=== PATIENT | female | born 1950 | race Caucasian/White ===

== ENCOUNTER 2025-08-03 10:52 | Outpatient (REF) | payer OTHER, SELFPAY ==
--- NOTE | ~2025-08-03 | XR_ITS ---
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 TECHNIQUE: AP and lateral views FINDINGS: Radiopaque material within the vertebral bodies T10 and T11. Old compression deformity at T9 resulting in 50% volume loss. There is a kyphotic deformity apex at T10-11. Metallic plate in the anterior lower cervical spine. Status post posterior thoracolumbar fusion no fully included in the [id number]. Osteopenia versus osteoporosis. Mild multilevel spondylosis. No acute cortical disruption or gross malalignment. XR/XR thoracic spine 2V IMPRESSION: No acute fracture or listhesis. Status post kyphoplasty/vertebroplasty procedure, likely at T10 and T11. Electronically signed by: Johnny Sánchez MD 08/03/2025 11:47 AM [facility]
--- OUTSIDE RECORDS SUMMARY | 2025-08-03 14:02 | XMS_ITS | Encounter Summary ---
Author Organization [facility] Address [address] [place] [address] Care Team Providers Care Marine Electrician Name Role Phone Archana Weinstein MD Unavailable [phone] Michelle Marshall MD Primary Care Provider Unav ailable Encounter Details Date Type Department Care Team Description 07/05/2018 [facility] Medical Records [address] [place] [address] Social History Tobacco Use Types Packs/Day Years Used Date Smoking Tobacco: Former Cigarettes 0.3 3 Smokeless Tobacco: Never Comments:quit 40yrs ago Alcohol Use Standard Drinks/Week Comments No 0 (1 standard drink = 0.6 oz pur e alcohol) Sex Assigned at Date Recorded Female 11/24/2019 9:[address] Job Start Date Occupation Industry Not on file Not on file Not on file documented as of this encounter Plan of Treatment Not on file documented as of this encounter Visit Diagnoses Not on filedocumented in this encounter Care Teams Marine Electrician Relationship Specialty Start Date End Date Michelle Marshall MD PCP - General Family Practice 02/18/23 Archana Weinstein MD Specialist Cardiology 06/03/21 documented as of this encounter
--- OUTSIDE RECORDS SUMMARY | 2025-08-03 14:02 | XMS_ITS | Encounter Summary ---
Author Organization [facility] Address [address] [place] [address] Care Team Providers Care Ammunition Supervisor Name Role Phone Archana Weinstein MD Unavailable [phone] Michelle Marshall MD Primary Care Provider Unav ailable Encounter Details Date Type Department Care Team Description 10/03/2018 Refill Adult Medicine [address] [phone] Christine Cruz MD [address] [place] [id number] Social History Tobacco Use Types Packs/Day Years [...] on file documented as of this encounter Miscellaneous Notes * Telephone Encounter - Rayna Segovia M.A. - 10/03/2018 9:03 AM EST Controlled substance contract and last issue date of medication reviewed. Patient is due for medication. Lab Results Component Value Date URINEOXYCOD NEGATIVE 09/29/2017 URBENZO NEGATIVE 09/29/2017 URAMPHETAMIN NEGATIVE 09/29/2017 URMARIJUANA NEGATIVE 09/29/2017 UROPIATES NEGATIVE 09/29/2017 URBARBITUATE NEGATIVE 09/29/2017 URCOCAINE NEGATIVE 09/29/2017 HYDROCODONE Negative 12/14/2016 Appt 10.20.2018 * Telephone Encounter - Rayna Segovia M.A. - 10/03/2018 9:03 AM ESTFrom: Yohana Oates To: Christine Cruz MD Sent: 10/03/2018 8:46 AM EST Subject: Medication Renewal Request Original authorizing provider: MD Yohaan Dawson would like a refill of the following medications: tramadol (ULTRAM) 50 MG tablet [Christine Cruz MD] Preferred pharmacy: [facility] [id number] [place] [address] Comment: documented in this encounter Plan of Treatment Not on file documented as of this encounter Visit Diagnoses Diagnosis Osteoarthritis of cervical spine, unspecified spinal osteoarthritis complication status documented in this encounter Care Teams Ammunition Supervisor Relationship Specialty Start Date End Date Michelle Marshall MD PCP - General Family Practice 02/18/23 Archana Weinstein MD Specialist Cardiology 06/03/21 documented as of this encounter
--- OUTSIDE RECORDS SUMMARY | 2025-08-03 14:02 | XMS_ITS | Encounter Summary ---
Author Organization [facility] Address [address] [place] [address] Care Team Providers Care Professor Of Management Name Role Phone Archana Weinstein MD Unavailable [phone] Michelle Marshall MD Primary Care Provider Unav ailable Encounter Details Date Type Department Care Team Description 07/20/2018 Residential Sales Associate Report Medical Records [address] [place] [address] [place] Social History Tobacco Use Types Packs/Day Years [...] on filedocumented in this encounter Care Teams Professor Of Management Relationship Specialty Start Date End Date Michelle Marshall MD PCP - General Family Practice 02/18/23 Archana Weinstein MD Specialist Cardiology 06/03/21 documented as of this encounter
--- OUTSIDE RECORDS SUMMARY | 2025-08-03 14:02 | XMS_ITS | Encounter Summary ---
Author Organization [facility] Address [address] [place] [address] Care Team Providers Care Traffic Signal Technician Name Role Phone Nickolas Avelar MD Primary Care Provider Unavail able Archana Weinstein MD Unavailable [phone] Michelle Marshall MD Primary Care Provider Unav ailable Encounter Details Date Type Department Care Team Description 01/29/2015 Premix Operator Concentrate Report Medical Records [address] [place] [address] Estuardo Rider MD Social History Tobacco Use Types Packs/Day Years Used Date Smoking Tobacco: Never Smokeless Tobacco: Never Comments:quit 40yrs ago Alcohol [...] on filedocumented in this encounter Care Teams Traffic Signal Technician Relationship Specialty Start Date End Date Nickolas Avelar MD PCP - General Internal Medicine 08/01/14 05/29/15 Michelle Marshall MD PCP - General Family Practice 02/18/23 Archana Weinstein MD Specialist Cardiology 06/03/21 documented as of this encounter
--- OUTSIDE RECORDS SUMMARY | 2025-08-03 14:02 | XMS_ITS | Encounter Summary ---
Author Organization [facility] Address [address] [place] [address] Care Team Providers Care Build Automation Engineer Name Role Phone Archana Weinstein MD Unavailable [phone] Michelle Marshall MD Primary Care Provider Unav ailable Reason for Visit * Reason Onset Date Comments Faxed Order 08/17/2018 Encounter Details Date Type Department Care Team Description 08/17/2018 Telephone Adult Medicine [address] [phone] Christine Cruz MD [address] [place] [address] [phone] Faxed Order Social History Tobacco Use Types Packs/Day Years [...] encounter Miscellaneous Notes * Telephone Encounter - Holli Ramirez - 08/17/2018 11:42 AM EST Discharge from agency for Dr Christine Cruz's signature documented in this encounter Plan of Treatment Not on file documented as of this encounter Visit Diagnoses Not on filedocumented in this encounter Care Teams Build Automation Engineer Relationship Specialty Start Date End Date Michelle Marshall MD PCP - General Family Practice 02/18/23 Archana Weinstein MD Specialist Cardiology 06/03/21 documented as of this encounter
--- OUTSIDE RECORDS SUMMARY | 2025-08-03 14:02 | XMS_ITS | Encounter Summary ---
Author Organization [facility] Address [address] [place] [address] Care Team Providers Care Supervisor Sandblaster Name Role Phone Archana Weinstein MD Unavailable [phone] Michelle Marshall MD Primary Care Provider Unav ailable Reason for Visit * Reason Onset Date Comments Faxed Order 07/15/2018 Encounter Details Date Type Department Care Team Description 07/15/2018 Telephone Adult Medicine [address] [phone] Christine Cruz MD [address] [place] [address] [phone] Faxed Order Social History Tobacco Use Types [...] * Telephone Encounter - Holli Ramirez - 07/15/2018 10:02 AM EDT Plan of care for Dr Christine Cruz's signature documented in this encounter Plan of Treatment Not on file documented as of this encounter Visit Diagnoses Not on filedocumented in this encounter Care Teams Supervisor Sandblaster Relationship Specialty Start Date End Date Michelle Marshall MD PCP - General Family Practice 02/18/23 Archana Weinstein MD Specialist Cardiology 06/03/21 documented as of this encounter
--- OUTSIDE RECORDS SUMMARY | 2025-08-03 14:02 | XMS_ITS | Encounter Summary ---
Author Organization [facility] Address [address] [place] [address] Care Team Providers Care Machine Tailer Name Role Phone Nickolas Avelar MD Primary Care Provider Unavail able Archana Weinstein MD Unavailable Michelle Marshall MD Primary Care Provider Unav ailable Encounter Details Date Type Department Care Team Description 02/06/2015 Hereditary Cancer Qu iz Results Medical Records [address] [place] [address] Abstract, Provider Social History Tobacco Use Types Packs/Day Years [...] on filedocumented in this encounter Care Teams Machine Tailer Relationship Specialty Start Date End Date Nickolas Avelar MD PCP - General Internal Medicine 08/01/14 05/29/15 Michelle Marshall MD PCP - General Family Practice 02/18/23 Archana Weinstein MD Specialist Cardiology 06/03/21 documented as of this encounter
--- OUTSIDE RECORDS SUMMARY | 2025-08-03 14:02 | XMS_ITS | Encounter Summary ---
Author Organization [facility] Address [address] [place] [address] Care Team Providers Care Application Defense Manager Name Role Phone Archana Weinstein MD Unavailable [phone] Michelle Marshall MD Primary Care Provider Unav ailable Encounter Details Date Type Department Care Team Description 07/25/2018 Home Health Certification Medical Records [address] [place] [address] [facility] [address] [place] [address] Social History Tobacco Use Types Packs/Day Years [...] on filedocumented in this encounter Care Teams Application Defense Manager Relationship Specialty Start Date End Date Michelle Marshall MD PCP - General Family Practice 02/18/23 Archana Weinstein MD Specialist Cardiology 06/03/21 documented as of this encounter
--- OUTSIDE RECORDS SUMMARY | 2025-08-03 14:02 | XMS_ITS | Encounter Summary ---
Author Organization [facility] Address [address] [place] [address] Care Team Providers Care Pet Care Assistant Name Role Phone Archana Weinstein MD Unavailable [phone] Michelle Marshall MD Primary Care Provider Unav ailable Encounter Details Date Type Department Care Team Description 12/13/2018 Meat And Seafood Manager Report Medical Records [address] [place] [address] Vargas Bowens Social History Tobacco Use Types [...] on filedocumented in this encounter Care Teams Pet Care Assistant Relationship Specialty Start Date End Date Michelle Marshall MD PCP - General Family Practice 02/18/23 Archana Weinstein MD Specialist Cardiology 06/03/21 documented as of this encounter
--- OUTSIDE RECORDS SUMMARY | 2025-08-03 14:02 | XMS_ITS | Encounter Summary ---
Author Organization [facility] Address [address] [place] [address] Care Team Providers Care Signal System Testing Maintainer Name Role Phone Archana Weinstein MD Unavailable [phone] Michelle Marshall MD Primary Care Provider Unav ailable Encounter Details Date Type Department Care Team Description 10/04/2018 [facility] Medical Records [address] [place] [address] Abstract, Provider Social History Tobacco Use Types [...] on filedocumented in this encounter Care Teams Signal System Testing Maintainer Relationship Specialty Start Date End Date Michelle Marshall MD PCP - General Family Practice 02/18/23 Archana Weinstein MD Specialist Cardiology 06/03/21 documented as of this encounter
--- OUTSIDE RECORDS SUMMARY | 2025-08-03 14:02 | XMS_ITS | Encounter Summary ---
Author Organization [facility] Address [address] [place] [address] Care Team Providers Care Acute Care Assistant Name Role Phone Archana Weinstein MD Unavailable [phone] Michelle Marshall MD Primary Care Provider Unav ailable Encounter Details Date Type Department Care Team Description 06/10/2018 Hospital Medical Records [address] [place] [address] [id number] Social History Tobacco Use Types Packs/Day Years [...] on filedocumented in this encounter Care Teams Acute Care Assistant Relationship Specialty Start Date End Date Michelle Marshall MD PCP - General Family Practice 02/18/23 Arcahna Weinstein MD Specialist Cardiology 06/03/21 documented as of this encounter
--- OUTSIDE RECORDS SUMMARY | 2025-08-03 14:02 | XMS_ITS | Encounter Summary ---
Author Organization [facility] Address [address] [place] [address] Care Team Providers Care Soldering Machine Operator Helper Name Role Phone Archana Weinstein MD Unavailable [phone] Michelle Marshall MD Primary Care Provider Unav ailable Reason for Referral * Radiology Services (Routine) - Closed Specialty Diagnoses / Procedures Referred By Tab mcdonald Referred To Contact Radiology Diagnoses Pulmonary nodule Procedures [facility] DIAGNOSTIC COMPUTED TOMOGRAPHY THORAX W/O CNTRST Erin Booker PA [address] [place] [address] [address] Referral ID Status Reason Start Date Expiration Date Visits Re quested Visits Authorized [id number] Closed 10/11/2021 12/01/2021 1 1 Encounter Details Date Type Department Care Team Description 10/11/2020 Orders Only Adult Medicine [address] [address] Erin Booker PA Pulmonary nodule (Primary Dx) Social History Tobacco Use Types [...] file Not on file Not on file COVID-19 Exposure Response Date Recorded In the last month, have you been in contact with someone who was confirmed or suspected to have Coronavirus / COVID-19? No / Unsure 10/11/2020 9:20 AM EST documented as of this encounter Plan of Treatment Not on file documented as of this encounter Results * [facility] DIAGNOSTIC COMPUTED TOMOGRAPHY THORAX W/O CNTRST (10/13/2021 9:06 AM EST) 10/13/2021 10:3 3 AM EST Impressions [facility] - 10/13/2021 10:42 AM EST IMPRESSION: 1. Small pulmonary nodule stable from 08/01/2019. Narrative [facility] - 10/13/2021 10:[address] CHEST HISTORY: One year follow-up pulmonary nodules. TECHNIQUE: Chest CT was performed utilizing contiguous noncontrasted axial images from the thoracic inlet to below the diaphragm. The images were reformatted in the coronal and sagittal planes. Radiation dosage is 6.38mGy COMPARISON: CT chest from 10/11/[address] chest from 08/01/2019 FINDINGS: Base of neck: The thyroid and base of the neck are within normal limits. Mediastinum: The heart is normal in size, no pericardial effusion. No mediastinal lymphadenopathy. Mild atherosclerosis of the thoracic aorta. Lungs: Evaluation of the lung parenchyma demonstrates stable nodules as follows: 5 mm solid left lower lobe nodule (series 3, image 65), 3 mm solid subpleural nodule within the left lower lobe (image 59/100) 2 mm solid left lower lobe nodule within the left lower lobe (series 3, image 57) 3 mm solid right lower lobe nodule (series 3, image 52). 2 3 mm small nodules within the peripheral right lower lobe (image 56 and 60/100) Apical pleural-parenchymal scarring. Linear atelectasis at the lung bases. Upper Abdomen: Limited visualization of the extreme upper abdomen demonstrates a small hiatal hernia. Subcentimeter lymph nodes are present within the upper abdomen. MSK: Soft tissues are normal. Extensive degenerative changes of the thoracic spine with evidence of posterior spinal fusion along the lower thoracic spine and evidence of vertebroplasty. Procedure Note Stephanie Taylor MD - 10/13/2021 CT CHEST HISTORY: One year follow-up pulmonary nodules. TECHNIQUE: Chest CT was performed utilizing contiguous noncontrasted axialimages from the thoracic inlet to below the diaphragm. The images were reformatted in thecoronal and sagittal planes. Radiation dosage is 6.38mGy COMPARISON: CT chest from 10/11/[address] chest from 08/01/2019 FINDINGS: Base of neck: The thyroid and base of the neck are within normal limits. Mediastinum: The heart is normal in size, no pericardial effusion. Nomediastinal lymphadenopathy. Mild atherosclerosis of the thoracic aorta. Lungs: Evaluation of the lung parenchyma demonstrates stable nodules asfollows: 5 mm solid left lower lobe nodule (series 3, image 65), 3 mm solid subpleural nodule within the left lower lobe (image 59/100) 2 mm solid left lower lobe nodule within the left lower lobe (series 3,image 57) 3 mm solid right lower lobe nodule (series 3, image 52). 2 3 mm small nodules within the peripheral right lower lobe (image 56 and60/100) Apical pleural-parenchymal scarring. Linear atelectasis at the lungbases. Upper Abdomen: Limited visualization of the extreme upper abdomendemonstrates a small hiatal hernia. Subcentimeter lymph nodes are present within the upper abdomen. MSK: Soft tissues are normal. Extensive degenerative changes of thethoracic spine with evidence of posterior spinal fusion along the lower thoracic spine andevidence of vertebroplasty. IMPRESSION IMPRESSION: 1. Small pulmonary nodule stable from 08/01/2019. Erin LEVY CT SCANS [facility] documented in this encounter Visit Diagnoses Diagnosis Pulmonary nodule- Primary Solitary pulmonary nodule Pulmonary nodule Solitary pulmonary nodule documented in this encounter Care Teams Soldering Machine Operator Helper Relationship Specialty Start Date End Date Michelle Marshall MD PCP - General Family Practice 02/18/23 Archana Weinstein MD Specialist Cardiology 06/03/21 documented as of this encounter
--- OUTSIDE RECORDS SUMMARY | 2025-08-03 14:02 | XMS_ITS | Encounter Summary ---
Author Organization [facility] Address [address] [place] [address] Care Team Providers Care Marketing Communications Leader Name Role Phone Archana Weinstein MD Unavailable [phone] Michelle Marshall MD Primary Care Provider Unav ailable Encounter Details Date Type Department Care Team Description 10/29/2020 Industrial Editor Report Medical Records [address] [place] [address] Saira Marshall DPM Social History Tobacco Use Types Packs/Day Years [...] have Coronavirus / COVID-19? No / Unsure 10/16/2020 10:59 AM EST documented as of this encounter Plan of Treatment Not on file documented as of this encounter Visit Diagnoses Not on filedocumented in this encounter Care Teams Marketing Communications Leader Relationship Specialty Start Date End Date Michelle Marshall MD PCP - General Family Practice 02/18/23 Archana Weinstein MD Specialist Cardiology 06/03/21 documented as of this encounter
--- OUTSIDE RECORDS SUMMARY | 2025-08-03 14:02 | XMS_ITS | Encounter Summary ---
Author Organization [facility] Address [address] [place] [address] Care Team Providers Care Middle School Band Teacher Name Role Phone Archana Weinstein MD Unavailable [phone] Michelle Marshall MD Primary Care Provider Unav ailable Reason for Visit * Reason Onset Date Comments Radius Corner Machine Operator Feedback 07/08/2018 [facility] Encounter Details Date Type Department Care Team Description 07/08/2018 Telephone Adult Medicine [address] [phone] Raúl Cruz MD [address] [place] [address] [phone] Radius Corner Machine Operator Feedback ([facility]) Social History Tobacco Use Types Packs/Day Years [...] encounter Miscellaneous Notes * Telephone Encounter - Nini Doherty - 07/08/2018 2:29 PM EDT [facility] Trace #: [id number] Subscriber: YOHANA OATES Submitter : RAÚL CRUZ Submitter Type: Provider : 1950 Referral (#[id number]) Specialty Care Review Type: Initial Certification Status : Certified in total Service Type : Medical Care Place Of Service : Office Visits : 6 Service Date : 07/08/2018-07/08/2019 Service Providers Provider Name ID Provider Type ARIS BOWENS NPI : [id number] Service Provider * Telephone Encounter - Saira Coyne - 07/08/2018 2:15 PM EDT What insurance does the patient have today? [place] Family Effective 06/27/09: BCBS will not retro referral requests over 90 days. If request is for this please instruct patient to call the 800# on their insurance card to appeal. Do not submit a request. Referrals cannot be processed if the insurance is not accurate. If the insurance listed above in red is NO BILLING INFORMATION FOUND FOR THIS ENCOUTNER The patients correct insurance must be obtained and registered in [facility] or their referral can not be processed. Is this a retro request? NO. If yes for what date of service do you need the retro referral? N/A Who is calling to request this referral? Patient If the caller is not the patient, what is their name? N/A Ask the patient WHO referred them to this specialty: Patient saw Dr. Cruz at [facility] for the problem and was told if symptoms did not resolve or worsen they would refer them to this specialty FIRST and LAST NAME of SPECIALIST PATIENT is seeing: Dr. Bowens What specialty is this? Orthopedics DIAGNOSIS Patient is being seen for (Not a body part or a procedure): Patient had surgery due to infection in the back Have you seen this SPECIALIST for this PROBLEM/DX before?YES If YES, when:01/2018 Have you checked REVIEW or the APPT DESK to see if this referral has already been done or has visits left? YES Is this visit:Follow Up Address of Specialist:[place] [address] Phone # of Specialist:[phone] Fax #: (if applicable):N/A Does patient have an appointment scheduled?: YES Date of appointment- (including a retro-request): 07/20/18 (6 visits) Is this appointment related to: Not MVA, WC or Surgery related documented in this encounter Plan of Treatment Not on file documented as of this encounter Visit Diagnoses Not on filedocumented in this encounter Care Teams Middle School Band Teacher Relationship Specialty Start Date End Date Michelle Marshall MD PCP - General Family Practice 02/18/23 Archana Weinstein MD Specialist Cardiology 06/03/21 documented as of this encounter
--- OUTSIDE RECORDS SUMMARY | 2025-08-03 14:02 | XMS_ITS | Encounter Summary ---
Author Organization [facility] Address [address] [place] [address] Care Team Providers Care Airborne Operations Manager Name Role Phone Archana Weinstein MD Unavailable [phone] Michelle Marshall MD Primary Care Provider Unav ailable Reason for Visit * Reason Onset Date Comments injection 03/21/2020 Encounter Details Date Type Department Care Team Description 03/21/2020 Telephone Physiatry - [address] [address] Jyotsna Vasquez MD [address] [place] [address] [place] [address] injection Social History Tobacco Use Types Packs/Day Years [...] encounter Miscellaneous Notes * Telephone Encounter - Carolynn Pickett L.P.N. - 03/21/2020 3:25 PM EDT Called pt to schedule her left SI joint injection She says she does not need the injection at this time She will call back when she needs the injection Message to Dr Tripp for FYI documented in this encounter Plan of Treatment Not on file documented as of this encounter Visit Diagnoses Not on filedocumented in this encounter Care Teams Airborne Operations Manager Relationship Specialty Start Date End Date Michelle Marshall MD PCP - General Family Practice 02/18/23 Archana Weinstein MD Specialist Cardiology 06/03/21 documented as of this encounter
--- OUTSIDE RECORDS SUMMARY | 2025-08-03 14:03 | XMS_ITS | Encounter Summary ---
Author Organization [facility] Address [address] [place] [address] Care Team Providers Care Lithograph Designer Name Role Phone Maico Churchill MD Primary Care Provider Paris vailable Nickolas Avelar MD Primary Care Provider Unavail able Archana Weinstein MD Unavailable [phone] Michelle Marshall MD Primary Care Provider Unav ailable Encounter Details Date Type Department Care Team Description 06/06/2014 Medical Service Technician Report Medical Records [address] [place] [address] Phillip Loera MD Social History Tobacco Use Types Packs/Day [...] on filedocumented in this encounter Care Teams Lithograph Designer Relationship Specialty Start Date End Date Maico Churchill MD PCP - General 02/08/09 07/31/14 Nickolas Avelar MD PCP - General Internal Medicine 08/01/14 05/29/15 Michelle Marshall MD PCP - General Family Practice 02/18/23 Archana Weinstein MD Specialist Cardiology 06/03/21 documented as of this encounter
--- OUTSIDE RECORDS SUMMARY | 2025-08-03 14:03 | XMS_ITS | Encounter Summary ---
Author Organization [facility] Address [address] [place] [address] Care Team Providers Care Collar Fuser Name Role Phone Maico Churchill MD Primary Care Provider Paris vailable Nickolas Avelar MD Primary Care Provider Unavail able Archana Weinstein MD Unavailable [phone] Michelle Marshall MD Primary Care Provider Unav ailable Encounter Details Date Type Department Care Team Description 05/26/2011 Scarf And Anneal Operator Report Medical Records [address] [place] [address] Estuardo Rider MD Social History Tobacco Use Types Packs/Day Years Used Date Smoking Tobacco: Never Comments:quit 40yrs ago Alcohol Use [...] on filedocumented in this encounter Care Teams Collar Fuser Relationship Specialty Start Date End Date Maico Churchill MD PCP - General 02/08/09 07/31/14 Nickolas Avelar MD PCP - General Internal Medicine 08/01/14 05/29/15 Michelle Marshall MD PCP - General Family Practice 02/18/23 Archana Weinstein MD Specialist Cardiology 06/03/21 documented as of this encounter
--- OUTSIDE RECORDS SUMMARY | 2025-08-03 14:03 | XMS_ITS | Encounter Summary ---
Author Organization [facility] Address [address] [place] [address] Care Team Providers Care Logging Tractor Operator Name Role Phone Nickolas Avelar MD Primary Care Provider Unavail able Archana Weinstein MD Unavailable [phone] Michelle Marshall MD Primary Care Provider Unav ailable Encounter Details Date Type Department Care Team Description 10/02/2014 Ict Account Manager Report Medical Records [address] [place] [address] Estuardo Rider MD Social History Tobacco Use [...] on filedocumented in this encounter Care Teams Logging Tractor Operator Relationship Specialty Start Date End Date Nickolas Avelar MD PCP - General Internal Medicine 08/01/14 05/29/15 Michelle Marshall MD PCP - General Family Practice 02/18/23 Archana Weinstein MD Specialist Cardiology 06/03/21 documented as of this encounter
--- OUTSIDE RECORDS SUMMARY | 2025-08-03 14:03 | XMS_ITS | Encounter Summary ---
Author Organization [facility] Address [address] [place] [address] Care Team Providers Care Toolmaker Name Role Phone Archana Weinstein MD Unavailable [phone] Michelle Marshall MD Primary Care Provider Unav ailable Encounter Details Date Type Department Care Team Description 08/01/2015 Release of Information Medical Records [address] [place] [address] Abstract, Provider Social History Tobacco Use Types [...] on filedocumented in this encounter Care Teams Toolmaker Relationship Specialty Start Date End Date Michelle Marshall MD PCP - General Family Practice 02/18/23 Archana Weinstein MD Specialist Cardiology 06/03/21 documented as of this encounter
--- OUTSIDE RECORDS SUMMARY | 2025-08-03 14:03 | XMS_ITS | Encounter Summary ---
Author Organization [facility] Address [address] [place] [address] Care Team Providers Care Branch Manager Trainee Name Role Phone Nickolas Avelar MD Primary Care Provider Unavail able Archana Weinstein MD Unavailable [phone] Michelle Marshall MD Primary Care Provider Unav ailable Encounter Details Date Type Department Care Team Description 08/28/2014 Boilerhouse Mechanic Report Medical Records [address] [place] [address] Estuardo Rider MD Social History Tobacco Use [...] on filedocumented in this encounter Care Teams Branch Manager Trainee Relationship Specialty Start Date End Date Nickolas Avelar MD PCP - General Internal Medicine 08/01/14 05/29/15 Michelle Marshall MD PCP - General Family Practice 02/18/23 Archana Weinstein MD Specialist Cardiology 06/03/21 documented as of this encounter
--- OUTSIDE RECORDS SUMMARY | 2025-08-03 14:03 | XMS_ITS | Encounter Summary ---
Author Organization [facility] Address [address] [place] [address] Care Team Providers Care Insurance Sales Associate Name Role Phone Archana Weinstein MD Unavailable [phone] Michelle Marshall MD Primary Care Provider Unav ailable Encounter Details Date Type Department Care Team Description 09/10/2015 [facility] Medical Records [address] [place] [address] Sarthak Eli MD Social History Tobacco Use Types Packs/Day [...] on filedocumented in this encounter Care Teams Insurance Sales Associate Relationship Specialty Start Date End Date Michelle Marshall MD PCP - General Family Practice 02/18/23 Archana Weinstein MD Specialist Cardiology 06/03/21 documented as of this encounter
--- OUTSIDE RECORDS SUMMARY | 2025-08-03 14:03 | XMS_ITS | Encounter Summary ---
Author Organization [facility] Address [address] [place] [address] Care Team Providers Care Substation Wireman Name Role Phone Archana Weintsein MD Unavailable [phone] Michelle Marshall MD Primary Care Provider Unav ailable Reason for Visit * Reason Onset Date Comments radiology 07/09/2015 mri testing. Encounter Details Date Type Department Care Team Description 07/09/2015 Telephone Adult Medicine [address] [id number] Christine Cruz MD [address] [place] [address] [id number] radiology (mri testing.) Social History Tobacco Use Types Packs/Day Years [...] encounter Miscellaneous Notes * Telephone Encounter - Christine Cruz MD - 07/09/2015 12:34 PM EDT Order placed * Telephone Encounter - Susana Banks R.N. - 07/09/2015 12:18 PM EDT message forwarded to Dr Cruz * Telephone Encounter - Maira Madrigal - 07/09/2015 10:57 AM EDT Yohana Marcos mri lumbar spine will be done with contrast due to back surgery 2008, can you pleaseorder a BUN and Creatinine for her? Thanks. Maira, Mri Department. documented in this encounter Plan of Treatment Not on file documented as of this encounter Visit Diagnoses Diagnosis Rheumatoid arthritis (HCC)- Primary documented in this encounter Care Teams Substation Wireman Relationship Specialty Start Date End Date Michelle Marshall MD PCP - General Family Practice 02/18/23 Archana Weinstein MD Specialist Cardiology 06/03/21 documented as of this encounter
--- OUTSIDE RECORDS SUMMARY | 2025-08-03 14:03 | XMS_ITS | Encounter Summary ---
Author Organization [facility] Address [address] [place] [address] Care Team Providers Care Cataloging Assistant Name Role Phone Nickolas Avelar MD Primary Care Provider Unavail able Archana Weinstein MD Unavailable [phone] Michelle Marshall MD Primary Care Provider Unav ailable Encounter Details Date Type Department Care Team Description 11/29/2014 Carpenter Supervisor Report Medical Records [address] [place] [address] Estuardo Rider MD Social History Tobacco Use [...] on filedocumented in this encounter Care Teams Cataloging Assistant Relationship Specialty Start Date End Date Nickolas Avelar MD PCP - General Internal Medicine 08/01/14 05/29/15 Michelle Marshall MD PCP - General Family Practice 02/18/23 Archana Weinstein MD Specialist Cardiology 06/03/21 documented as of this encounter
--- OUTSIDE RECORDS SUMMARY | 2025-08-03 14:03 | XMS_ITS | Encounter Summary ---
Author Organization [facility] Address [address] [place] [address] Care Team Providers Care Rag Washer Name Role Phone Archana Weinstein MD Unavailable [phone] Michelle Marshall MD Primary Care Provider Unav ailable Encounter Details Date Type Department Care Team Description 05/26/2021 Hospital Medical Records [address] [place] [address] [id number] Social History Tobacco Use Types Packs/Day Years [...] have Coronavirus / COVID-19? No / Unsure 05/08/2021 10:21 AM EDT documented as of this encounter Plan of Treatment Not on file documented as of this encounter Visit Diagnoses Not on filedocumented in this encounter Care Teams Rag Washer Relationship Specialty Start Date End Date Michelle Marshall MD PCP - General Family Practice 02/18/23 Archana Weinstein MD Specialist Cardiology 9/7/21 documented as of this encounter
--- OUTSIDE RECORDS SUMMARY | 2025-08-03 14:03 | XMS_ITS | Encounter Summary ---
Author Organization [facility] Address [address] [place] [address] Care Team Providers Care Project Estimator Name Role Phone Nickolas Avelar MD Primary Care Provider Unavail able Archana Weinstein MD Unavailable [phone] Michelle Marshall MD Primary Care Provider Unav ailable Encounter Details Date Type Department Care Team Description 03/07/2015 Raw Material Planner Report Medical Records [address] [place] [address] [place] [address] [place] [address] [phone] Social History Tobacco Use Types Packs/Day Years [...] on filedocumented in this encounter Care Teams Project Estimator Relationship Specialty Start Date End Date Nickolas Avelar MD PCP - General Internal Medicine 08/01/14 05/29/15 Michelle Marshall MD PCP - General Family Practice 02/18/23 Archana Weinstein MD Specialist Cardiology 06/03/21 documented as of this encounter
--- OUTSIDE RECORDS SUMMARY | 2025-08-03 14:03 | XMS_ITS | Encounter Summary ---
Author Organization [facility] Address [address] [place] [address] Care Team Providers Care Teletype Telegrapher Name Role Phone Archana Weinstein MD Unavailable [phone] Michelle Marshall MD Primary Care Provider Unav ailable Reason for Visit * Reason Onset Date Comments Mychart Rx Refill 02/11/2022 Encounter Details Date Type Department Care Team Description 02/11/2022 Refill Adult Medicine [address] [id number] Erin Booker PA Mychart Rx Refill Social History Tobacco Use Types Packs/Day Years [...] Exposure Response Date Recorded In the last 10 days, have yo u been in contact with someone who was confirmed or suspected to have Coronavirus/COVID-19? No / Unsure 02/11/2022 2:22 PM EDT documented as of this encounter Miscellaneous Notes * Telephone Encounter - Valery Wing M.A. - 02/11/2022 12:01 PM EDT Lab Results Component Value Date TSH 0.80 12/03/2021 Lab Results Component Value Date NA 140 12/03/2021 K 3.9 12/03/2021 CO2 26 12/03/2021 CL 110 12/03/2021 BUN 21 12/03/2021 CREAT 1.02 12/24/2021 GLU 96 12/03/2021 CA 9.3 12/03/2021 GFR 53 12/24/2021 Last appt 12/24/21 documented in this encounter Plan of Treatment Not on file documented as of this encounter Visit Diagnoses Not on filedocumented in this encounter Care Teams Teletype Telegrapher Relationship Specialty Start Date End Date Michelle Marshall MD PCP - General Family Practice 02/18/23 Archana Weinstein MD Specialist Cardiology 06/03/21 documented as of this encounter
--- OUTSIDE RECORDS SUMMARY | 2025-08-03 14:03 | XMS_ITS | Encounter Summary ---
Author Organization [facility] Address [address] [place] [address] Care Team Providers Care Keg Header Name Role Phone Maico Churchill MD Primary Care Provider [place] vailable Nickolas Avelar MD Primary Care Provider Unavail able Archana Weinstein MD Unavailable [phone] Michelle Marshall MD Primary Care Provider Unav ailable Encounter Details Date Type Department Care Team Description 07/23/2011 Hand Mounter Report Medical Records [address] [place] [address] Phillip Loera MD Social History Tobacco Use [...] on filedocumented in this encounter Care Teams Keg Header Relationship Specialty Start Date End Date Maico Churchill MD PCP - General 02/08/09 07/31/14 Nickolas Avelar MD PCP - General Internal Medicine 08/01/14 05/29/15 Michelle Marshall MD PCP - General Family Practice 02/18/23 Archana Weinstein MD Specialist Cardiology 06/03/21 documented as of this encounter
--- OUTSIDE RECORDS SUMMARY | 2025-08-03 14:03 | XMS_ITS | Encounter Summary ---
Author Organization [facility] Address [address] [place] [address] Care Team Providers Care Joiner Name Role Phone Maico Churchill MD Primary Care Provider [place] vailable Nickolas Avelar MD Primary Care Provider Unavail able Archana Weinstein MD Unavailable [phone] Michelle Marshall MD Primary Care Provider Unav ailable Encounter Details Date Type Department Care Team Description 12/16/2011 [facility] [place] [address] Phillip Wynne MD Social History Tobacco Use Types Packs/Day [...] on filedocumented in this encounter Care Teams Joiner Relationship Specialty Start Date End Date Maico Churchill MD PCP - General 02/08/09 07/31/14 Nickolas Avelar MD PCP - General Internal Medicine 08/01/14 05/29/15 Michelle Marshall MD PCP - General Family Practice 02/18/23 Archana Weinstein MD Specialist Cardiology 06/03/21 documented as of this encounter
--- OUTSIDE RECORDS SUMMARY | 2025-08-03 14:03 | XMS_ITS | Encounter Summary ---
Author Organization [facility] Address [address] [place] [address] Care Team Providers Care Medical Lab Assistant Name Role Phone Nickolas Avelar MD Primary Care Provider Unavail able Archana Weinstein MD Unavailable [phone] Michelle Marshall MD Primary Care Provider Unav ailable Encounter Details Date Type Department Care Team Description 10/26/2014 Food Broker Report Medical Records [address] [place] [address] Estuardo Rider MD Social History Tobacco Use [...] on filedocumented in this encounter Care Teams Medical Lab Assistant Relationship Specialty Start Date End Date Nickolas Avelar MD PCP - General Internal Medicine 08/01/14 05/29/15 Michelle Marshall MD PCP - General Family Practice 02/18/23 Archana Weinstein MD Specialist Cardiology 06/03/21 documented as of this encounter
--- OUTSIDE RECORDS SUMMARY | 2025-08-03 14:03 | XMS_ITS | Encounter Summary ---
Author Organization [facility] Address [address] [place] [address] Care Team Providers Care Car And Yard Supervisor Name Role Phone Archana Weinstein MD Unavailable [phone] Michelle Marshall MD Primary Care Provider Unav ailable Encounter Details Date Type Department Care Team Description 08/01/2015 Thermograph Operator Report Medical Records [address] [place] [address] Phillip Loera MD Social History Tobacco Use [...] on filedocumented in this encounter Care Teams Car And Yard Supervisor Relationship Specialty Start Date End Date Michelle Marshall MD PCP - General Family Practice 02/18/23 Archana Weinstein MD Specialist Cardiology 06/03/21 documented as of this encounter
--- OUTSIDE RECORDS SUMMARY | 2025-08-03 14:03 | XMS_ITS | Encounter Summary ---
Author Organization [facility] Address [address] [place] [address] Care Team Providers Care Credit Analyst Name Role Phone Maico Churchill MD Primary Care Provider [place] vailable Nickolas Avelar MD Primary Care Provider Unavail able Archana Weinstein MD Unavailable [phone] Michelle Marshall MD Primary Care Provider Unav ailable Encounter Details Date Type Department Care Team Description 08/05/2011 Excellence Consultant Report Medical Records [address] [place] [address] Phillip Loera MD Social History Tobacco Use [...] on filedocumented in this encounter Care Teams Credit Analyst Relationship Specialty Start Date End Date Maico Churchill MD PCP - General 02/08/09 07/31/14 Nickolas Avelar MD PCP - General Internal Medicine 08/01/14 05/29/15 Michelle Marshall MD PCP - General Family Practice 02/18/23 Archana Weinstein MD Specialist Cardiology 06/03/21 documented as of this encounter
--- OUTSIDE RECORDS SUMMARY | 2025-08-03 14:03 | XMS_ITS | Encounter Summary ---
Author Organization [facility] Address [address] [place] [address] Care Team Providers Care Guest Experience Specialist Name Role Phone Maico Churchill MD Primary Care Provider [place] vailable Nickolas Avelar MD Primary Care Provider Unavail able Archana Weinstein MD Unavailable [phone] Michelle Marshall MD Primary Care Provider Unav ailable Encounter Details Date Type Department Care Team Description 06/03/2011 Oral Hygienist Report Medical Records [address] [place] [address] Phillip Loera MD Social History Tobacco Use [...] on filedocumented in this encounter Care Teams Guest Experience Specialist Relationship Specialty Start Date End Date Maico Churchill MD PCP - General 02/08/09 07/31/14 Nickolas Avelar MD PCP - General Internal Medicine 08/01/14 05/29/15 Michelle Marshall MD PCP - General Family Practice 02/18/23 Archana Weinstein MD Specialist Cardiology 06/03/21 documented as of this encounter
--- OUTSIDE RECORDS SUMMARY | 2025-08-03 14:03 | XMS_ITS | Encounter Summary ---
Author Organization [facility] Address [address] [place] [address] Care Team Providers Care Senior Product Analyst Name Role Phone Maico Churchill MD Primary Care Provider [place] vailable Nickolas Avelar MD Primary Care Provider Unavail able Archana Weinstein MD Unavailable [phone] Michelle Marshall MD Primary Care Provider Unav ailable Encounter Details Date Type Department Care Team Description 01/23/2011 [employer] Programmer Analyst Report Medical Records [address] [place] [address] Estuardo Rider MD Social History Tobacco Use [...] on filedocumented in this encounter Care Teams Senior Product Analyst Relationship Specialty Start Date End Date Maico Churchill MD PCP - General 02/08/09 07/31/14 Nickolas Avelar MD PCP - General Internal Medicine 08/01/14 05/29/15 Michelle Marshall MD PCP - General Family Practice 02/18/23 Archana Weinstein MD Specialist Cardiology 06/03/21 documented as of this encounter
--- OUTSIDE RECORDS SUMMARY | 2025-08-03 14:03 | XMS_ITS | Encounter Summary ---
Author Organization [facility] Address [address] [place] [address] Care Team Providers Care Infantry Operations Specialist Name Role Phone Archana Weinstein MD Unavailable [phone] Michelle Marshall MD Primary Care Provider Unav ailable Encounter Details Date Type Department Care Team Description 03/18/2021 [facility] Medical Records [address] [place] [address] Abstract, Provider Social History Tobacco Use Types [...] have Coronavirus / COVID-19? No / Unsure 03/14/2021 10:52 AM EDT documented as of this encounter Plan of Treatment Not on file documented as of this encounter Visit Diagnoses Not on filedocumented in this encounter Care Teams Infantry Operations Specialist Relationship Specialty Start Date End Date Michelle Marshall MD PCP - General Family Practice 02/18/23 Archana Weinstein MD Specialist Cardiology 06/03/21 documented as of this encounter
--- OUTSIDE RECORDS SUMMARY | 2025-08-03 14:03 | XMS_ITS | Encounter Summary ---
Author Organization [facility] Address [address] [place] [address] Care Team Providers Care Legal Clerk Name Role Phone Maico Churchill MD Primary Care Provider [place] vailable Nickolas Avelar MD Primary Care Provider Unavail able Archana Weinstein MD Unavailable [phone] Michelle Marshall MD Primary Care Provider Unav ailable Encounter Details Date Type Department Care Team Description 12/08/2011 Controlled Substance Contract with [facility] Medical Records [address] [place] [address] Abstract, Provider Social History Tobacco Use Types [...] on filedocumented in this encounter Care Teams Legal Clerk Relationship Specialty Start Date End Date Maico Churchill MD PCP - General 02/08/09 07/31/14 Nickolas Avelar MD PCP - General Internal Medicine 08/01/14 05/29/15 Michelle Marshall MD PCP - General Family Practice 02/18/23 Archana Weinstein MD Specialist Cardiology 06/03/21 documented as of this encounter
--- OUTSIDE RECORDS SUMMARY | 2025-08-03 14:03 | XMS_ITS | Encounter Summary ---
Author Organization [facility] Address [address] [place] [address] Care Team Providers Care Ldr Rn Name Role Phone Archana Weinstein MD Unavailable [phone] Michelle Marshall MD Primary Care Provider Unav ailable Encounter Details Date Type Department Care Team Description 08/12/2015 Therapist Radiation Report Medical Records [address] [place] [phone] Sarthak Eli MD Social History Tobacco Use [...] on filedocumented in this encounter Care Teams Ldr Rn Relationship Specialty Start Date End Date Michelle Marshall MD PCP - General Family Practice 02/18/23 Archana Weinstein MD Specialist Cardiology 06/03/21 documented as of this encounter
--- OUTSIDE RECORDS SUMMARY | 2025-08-03 14:03 | XMS_ITS | Encounter Summary ---
Author Organization [facility] Address [address] [place] [address] Care Team Providers Care Global Supply Chain Vice President Name Role Phone Archana Weinstein MD Unavailable [phone] Michelle Marshall MD Primary Care Provider Unav ailable Encounter Details Date Type Department Care Team Description 08/28/2015 FENCE MAKER/MassPat Report Medical Records [address] [place] [address] Abstract, Provider Social History Tobacco Use Types [...] on filedocumented in this encounter Care Teams Global Supply Chain Vice President Relationship Specialty Start Date End Date Michelle Marshall MD PCP - General Family Practice 02/18/23 Archana Weinstein MD Specialist Cardiology 06/03/21 documented as of this encounter
--- OUTSIDE RECORDS SUMMARY | 2025-08-03 14:03 | XMS_ITS | Encounter Summary ---
Author Organization [facility] Address [address] [place] [address] Care Team Providers Care Economic Research Analyst Name Role Phone Maico Churchill MD Primary Care Provider [place] vaNickolas Hurtado MD Primary Care Provider Unavail able Archana Weinstein MD Unavailable [phone] Michelle Marshall MD Primary Care Provider Unav ailable Encounter Details Date Type Department Care Team Description 03/14/2012 Director Channel Report Medical Records [address] [place] [address] Chico Frausto Social History Tobacco Use Types Packs/Day Years [...] on filedocumented in this encounter Care Teams Economic Research Analyst Relationship Specialty Start Date End Date Maico Churchill MD PCP - General 02/08/09 07/31/14 Nickolas Avelar MD PCP - General Internal Medicine 08/01/14 05/29/15 Michelle Marshall MD PCP - General Family Practice 02/18/23 Archana Weinstein MD Specialist Cardiology 06/03/21 documented as of this encounter
--- OUTSIDE RECORDS SUMMARY | 2025-08-03 14:03 | XMS_ITS | Encounter Summary ---
Author Organization [facility] Address [address] [place] [address] Care Team Providers Care Pay Station Department Manager Name Role Phone Nickolas Avelar MD Primary Care Provider Unavail able Archana Weinstein MD Unavailable [phone] Michelle Marshall MD Primary Care Provider Unav ailable Encounter Details Date Type Department Care Team Description 03/27/2015 Controlled Substance Plan Medical Records [address] [place] [address] Abstract, Provider Social History Tobacco Use Types [...] on filedocumented in this encounter Care Teams Pay Station Department Manager Relationship Specialty Start Date End Date Nickolas Avelar MD PCP - General Internal Medicine 08/01/14 05/29/15 Michelle Marshall MD PCP - General Family Practice 02/18/23 Archana Weinstein MD Specialist Cardiology 06/03/21 documented as of this encounter
--- OUTSIDE RECORDS SUMMARY | 2025-08-03 14:03 | XMS_ITS | Encounter Summary ---
Author Organization [facility] Address [address] [place] [address] Care Team Providers Care Automation And Controls Manager Name Role Phone Maico Churchill MD Primary Care Provider [place] vailable Nickolas Avelar MD Primary Care Provider Unavail able Archana Weinstein MD Unavailable [phone] Michelle Marshall MD Primary Care Provider Unav ailable Encounter Details Date Type Department Care Team Description 08/09/2012 Pastry Wrapper Report Medical Records [address] [place] [address] Estuardo Rider MD Social History Tobacco Use [...] on filedocumented in this encounter Care Teams Automation And Controls Manager Relationship Specialty Start Date End Date Maico Churchill MD PCP - General 02/08/09 07/31/14 Nickolas Avelar MD PCP - General Internal Medicine 08/01/14 05/29/15 Michelle Marshall MD PCP - General Family Practice 02/18/23 Archana Weinstein MD Specialist Cardiology 06/03/21 documented as of this encounter
--- OUTSIDE RECORDS SUMMARY | 2025-08-03 14:04 | XMS_ITS | Encounter Summary ---
Author Organization [facility] Address [address] [place] [address] Care Team Providers Care Robot Operator Name Role Phone Archana Weinstein MD Unavailable Michelle Marshall MD Primary Care Provider Unav ailable Encounter Details Date Type Department Care Team Description 02/10/2016 Floral Design Teacher Report Medical Records [address] [place] [address] Phillip Loera MD Social History Tobacco Use Types Packs/Day Years Used Date Smoking Tobacco: Former Smokeless Tobacco: Never Comments:quit 40yrs ago Alcohol [...] on filedocumented in this encounter Care Teams Robot Operator Relationship Specialty Start Date End Date Michelle aMrshall MD PCP - General Family Practice 02/18/23 Archana Weinstein MD Specialist Cardiology 06/03/21 documented as of this encounter
--- OUTSIDE RECORDS SUMMARY | 2025-08-03 14:04 | XMS_ITS | Encounter Summary ---
Author Organization [facility] Address [address] [place] [address] Care Team Providers Care Rate Supervisor Name Role Phone Archana Weinstein MD Unavailable [phone] Michelle Marshall MD Primary Care Provider Unav ailable Encounter Details Date Type Department Care Team Description 10/07/2021 Pt. Referral Request [facility] MyChart [address] [place] [address] Md Fawn Social History Tobacco Use Types Packs/Day Years [...] have Coronavirus / COVID-19? No / Unsure 09/22/2021 8:22 AM EST documented as of this encounter Plan of Treatment Not on file documented as of this encounter Visit Diagnoses Not on filedocumented in this encounter Care Teams Rate Supervisor Relationship Specialty Start Date End Date Michelle Marshall MD PCP - General Family Practice 02/18/23 Archana Weinstein MD Specialist Cardiology 06/03/21 documented as of this encounter
--- OUTSIDE RECORDS SUMMARY | 2025-08-03 14:04 | XMS_ITS | Encounter Summary ---
Author Organization [facility] Address [address] [place] [address] Care Team Providers Care Sweet Potato Disintegrator Name Role Phone Archana Weinstein MD Unavailable [phone] Michelle Marshall MD Primary Care Provider Unav ailable Encounter Details Date Type Department Care Team Description 02/19/2023 Refill Pulmonology - [place] [address] [facility] [address] [place] [address] Karley Winslow APRN [address] [facility] [address] [place] [phone] Social History Tobacco Use Types Packs/Day Years [...] suspected to have Coronavirus/COVID-19? No / Unsure 02/18/2023 10:11 AM EDT documented as of this encounter Plan of Treatment Not on file documented as of this encounter Visit Diagnoses Not on filedocumented in this encounter Care Teams Sweet Potato Disintegrator Relationship Specialty Start Date End Date Michelle Marshall MD PCP - General Family Practice 02/18/23 Archana Wenistein MD Specialist Cardiology 06/03/21 documented as of this encounter
--- OUTSIDE RECORDS SUMMARY | 2025-08-03 14:04 | XMS_ITS | Encounter Summary ---
Author Organization [facility] Address [address] [place] [address] Care Team Providers Care Offc Spec Name Role Phone Archana Weinstein MD Unavailable [phone] Michelle Marshall MD Primary Care Provider Unav ailable Encounter Details Date Type Department Care Team Description 10/09/2015 [facility] Medical Records [address] [place] [address] Social History Tobacco Use Types Packs/Day Years [...] on filedocumented in this encounter Care Teams Offc Spec Relationship Specialty Start Date End Date Michelle Marshall MD PCP - General Family Practice 02/18/23 Archana Weinstein MD Specialist Cardiology 06/03/21 documented as of this encounter
--- OUTSIDE RECORDS SUMMARY | 2025-08-03 14:04 | XMS_ITS | Encounter Summary ---
Author Organization [facility] Address [address] [place] [address] Care Team Providers Care Aniline Press Worker Name Role Phone Archana Weinstein MD Unavailable [phone] Michelle Marshall MD Primary Care Provider Unav ailable Reason for Visit * Reason Onset Date Comments APPOINTMENT 12/18/2019 Encounter Details Date Type Department Care Team Description 12/18/2019 Telephone Pulmonology - [place] [address] [facility] [address] [place] [address] Pablo Glez MD [address] [facility] [address] [place] [address] APPOINTMENT Social History Tobacco Use Types Packs/Day Years [...] encounter Miscellaneous Notes * Telephone Encounter - Ayo Oates M.A. - 12/18/2019 2:10 PM EDT Patient would be happy to do an Audio visit tomorrow at 8:45, best number is [phone] documented in this encounter Plan of Treatment Not on file documented as of this encounter Visit Diagnoses Not on filedocumented in this encounter Care Teams Aniline Press Worker Relationship Specialty Start Date End Date Michelle Marshall MD PCP - General Family Practice 02/18/23 Archana Weinstein MD Specialist Cardiology 06/03/21 documented as of this encounter
--- OUTSIDE RECORDS SUMMARY | 2025-08-03 14:04 | XMS_ITS | Encounter Summary ---
Author Organization [facility] Address [address] [place] [address] Care Team Providers Care Web Developer Programmer Name Role Phone Archana Weinstein MD Unavailable Michelle Marshall MD Primary Care Provider Unav ailable Encounter Details Date Type Department Care Team Description 01/10/2020 Pt. Non Urgent Medical Question Physiatry - [address] [address] Jyotsna Vasquez MD [address] [place] [address] [place] [address] Social History Tobacco Use Types Packs/Day Years [...] on file documented as of this encounter Progress Notes * Carolynn Pickett L.P.N. - 01/10/2020 9:57 AM EDTFrom: Yohana Oates To: Jyotsna Vasquez MD Sent: 01/10/2020 9:43 AM EDT Subject: Pain Hi Dr. Have you received the approval from the insurance co for the shot. Thank you Yohana documented in this encounter Plan of Treatment Not on file documented as of this encounter Visit Diagnoses Not on filedocumented in this encounter Care Teams Web Developer Programmer Relationship Specialty Start Date End Date Michelle Marshall MD PCP - General Family Practice 02/18/23 Archana Weinstein MD Specialist Cardiology 06/03/21 documented as of this encounter
--- OUTSIDE RECORDS SUMMARY | 2025-08-03 14:04 | XMS_ITS | Encounter Summary ---
Author Organization [facility] Address [address] [place] [address] Care Team Providers Care Simulation Tech Name Role Phone Archana Weinstein MD Unavailable [phone] Michelle Marshall MD Primary Care Provider Unav ailable Encounter Details Date Type Department Care Team Description 11/23/2016 Orders Only Medical Records [address] [place] [address] Archana Weinstein MD [address] [place] [address] Social History Tobacco Use Types Packs/Day Years [...] on file documented as of this encounter Procedures Procedure Name Priority Date/Time Associated Diagnosis Comments OUTSIDE HOLTER MONITOR Routine 11/18/2016 documented in this encounter Results * OUTSIDE HOLTER MONITOR (11/18/2016) Archana Weinstein MD CARDIOLOGY documented in this encounter Visit Diagnoses Not on filedocumented in this encounter Care Teams Simulation Tech Relationship Specialty Start Date End Date Michelle Marshall MD PCP - General Family Practice 02/18/23 Archana Weinstein MD Specialist Cardiology 06/03/21 documented as of this encounter
--- OUTSIDE RECORDS SUMMARY | 2025-08-03 14:04 | XMS_ITS | Encounter Summary ---
Author Organization [facility] Address [address] [place] [address] Care Team Providers Care Field Agent Name Role Phone Archana Weinstein MD Unavailable Michelle Marshall MD Primary Care Provider Unav ailable Encounter Details Date Type Department Care Team Description 08/22/2019 Food Service Kitchen Supervisor Report Medical Records [address] [place] [address] Abstract, Provider Social History Tobacco Use Types [...] on filedocumented in this encounter Care Teams Field Agent Relationship Specialty Start Date End Date Michelle Marshall MD PCP - General Family Practice 02/18/23 Archana Weinstein MD Specialist Cardiology 06/03/21 documented as of this encounter
--- OUTSIDE RECORDS SUMMARY | 2025-08-03 14:04 | XMS_ITS | Encounter Summary ---
Author Organization [facility] Address [address] [place] [address] Care Team Providers Care Physician Recruiter Name Role Phone Maico Churchill MD Primary Care Provider Paris varuthble Nickolas Avelar MD Primary Care Provider Unavail able Arhcana Weinstein MD Unavailable [phone] Michelle Marshall MD Primary Care Provider Unav ailable Encounter Details Date Type Department Care Team Description 03/04/2010 Hospital Medical Records [address] [place] [address] Phillip Loera MD Social History Tobacco Use [...] on filedocumented in this encounter Care Teams Physician Recruiter Relationship Specialty Start Date End Date Maico Churchill MD PCP - General 02/08/09 07/31/14 Nickolas Avelar MD PCP - General Internal Medicine 08/01/14 05/29/15 Michelle Marshall MD PCP - General Family Practice 02/18/23 Archana Weinstein MD Specialist Cardiology 06/03/21 documented as of this encounter
--- OUTSIDE RECORDS SUMMARY | 2025-08-03 14:04 | XMS_ITS | Encounter Summary ---
Author Organization [facility] Address [address] [place] [address] Care Team Providers Care Splunk Consultant Name Role Phone Archana Weinstein MD Unavailable [phone] Michelle Marshall MD Primary Care Provider Unav ailable Encounter Details Date Type Department Care Team Description 09/01/2016 [facility] Medical Records [address] [place] [address] Amadeo Sher Social History Tobacco Use Types Packs/Day Years [...] on filedocumented in this encounter Care Teams Splunk Consultant Relationship Specialty Start Date End Date Michelle Marshall MD PCP - General Family Practice 02/18/23 Archana Weinstein MD Specialist Cardiology 06/03/21 documented as of this encounter
--- OUTSIDE RECORDS SUMMARY | 2025-08-03 14:04 | XMS_ITS | Encounter Summary ---
Author Organization [facility] Address [address] [place] [address] Care Team Providers Care Stock Receiver Name Role Phone Maico Churchill MD Primary Care Provider Paris Nickolas Pastor MD Primary Care Provider Unavail able Archana Weinstein MD Unavailable [phone] Michelle Marshall MD Primary Care Provider Unav ailable Encounter Details Date Type Department Care Team Description 09/16/2012 Special Day Class Teacher Report Medical Records [address] [place] [address] Estuardo Rider [address] [place] [address] Social History Tobacco Use Types Packs/Day Years [...] on filedocumented in this encounter Care Teams Stock Receiver Relationship Specialty Start Date End Date Maico Churchill MD PCP - General 02/08/09 07/31/14 Nickolas Avelar MD PCP - General Internal Medicine 08/01/14 05/29/15 Michelle Marshall MD PCP - General Family Practice 02/18/23 Archana Weinstein MD Specialist Cardiology 06/03/21 documented as of this encounter
--- OUTSIDE RECORDS SUMMARY | 2025-08-03 14:04 | XMS_ITS | Encounter Summary ---
Author Organization [facility] Address [address] [place] [address] Care Team Providers Care Sparker And Patcher Name Role Phone Archana Weinstein MD Unavailable [phone] Michelle Marshall MD Primary Care Provider Unav ailable Encounter Details Date Type Department Care Team Description 05/28/2016 Hospital Medical Records [address] [place] [address] Vargas Bowens Social History Tobacco Use Types [...] on filedocumented in this encounter Care Teams Sparker And Patcher Relationship Specialty Start Date End Date Michelle Marshall MD PCP - General Family Practice 02/18/23 Archana Weinstein MD Specialist Cardiology 06/03/21 documented as of this encounter
--- OUTSIDE RECORDS SUMMARY | 2025-08-03 14:04 | XMS_ITS | Encounter Summary ---
Author Organization [facility] Address [address] [place] [address] Care Team Providers Care Talent Analyst Name Role Phone Archana Weinstein MD Unavailable Michelle Marshall MD Primary Care Provider Unav ailable Encounter Details Date Type Department Care Team Description 01/17/2019 [facility] Medical Records [address] [place] [address] Abstract, Provider Social History Tobacco Use Types [...] on filedocumented in this encounter Care Teams Talent Analyst Relationship Specialty Start Date End Date Michelle Marshall MD PCP - General Family Practice 02/18/23 Archana Weinstein MD Specialist Cardiology 06/03/21 documented as of this encounter
--- OUTSIDE RECORDS SUMMARY | 2025-08-03 14:04 | XMS_ITS | Encounter Summary ---
Author Organization [facility] Address [address] [place] [address] Care Team Providers Care Birth Attendant Name Role Phone Maico Churchill MD Primary Care Provider Paris vailable Nickolas Avelar MD Primary Care Provider Unavail able Archana Weinstein MD Unavailable [phone] Michelle Marshall MD Primary Care Provider Unav ailable Encounter Details Date Type Department Care Team Description 12/15/2012 Frequency Checker Report Medical Records [address] [place] [address] Estuardo Rider MD Social History Tobacco Use [...] on filedocumented in this encounter Care Teams Birth Attendant Relationship Specialty Start Date End Date Maico Churchill MD PCP - General 02/08/09 07/31/14 Nickolas Avelar MD PCP - General Internal Medicine 08/01/14 05/29/15 Michelle Marshall MD PCP - General Family Practice 02/18/23 Archana Weinstein MD Specialist Cardiology 06/03/21 documented as of this encounter
--- OUTSIDE RECORDS SUMMARY | 2025-08-03 14:04 | XMS_ITS | Encounter Summary ---
Author Organization [facility] Address [address] [place] [address] Care Team Providers Care Payroll Clerk Name Role Phone Maico Churchill MD Primary Care Provider Paris vailable Nickolas Avelar MD Primary Care Provider Unavail able Archana Weinstein MD Unavailable [phone] Michelle Marshall MD Primary Care Provider Unav ailable Encounter Details Date Type Department Care Team Description 04/12/2013 Slasher Tender Helper Report Medical Records [address] [place] [address] Phillip Loera MD Social History Tobacco Use [...] on filedocumented in this encounter Care Teams Payroll Clerk Relationship Specialty Start Date End Date Maico Churchill MD PCP - General 02/08/09 07/31/14 Nickolas Avelar MD PCP - General Internal Medicine 08/01/14 05/29/15 Michelle Marshall MD PCP - General Family Practice 02/18/23 Archana Weinstein MD Specialist Cardiology 06/03/21 documented as of this encounter
--- OUTSIDE RECORDS SUMMARY | 2025-08-03 14:04 | XMS_ITS | Encounter Summary ---
Author Organization [facility] Address [address] [place] [address] Care Team Providers Care Talent Acquisition Consultant Name Role Phone Archana Weinstein MD Unavailable [phone] Michelle Marshall MD Primary Care Provider Unav ailable Encounter Details Date Type Department Care Team Description 08/07/2021 Pt. Referral Request [facility] MyChart [address] [place] [address] Md Fawn Social History Tobacco Use Types [...] have Coronavirus / COVID-19? No / Unsure 08/06/2021 9:57 AM EST documented as of this encounter Plan of Treatment Not on file documented as of this encounter Visit Diagnoses Not on filedocumented in this encounter Care Teams Talent Acquisition Consultant Relationship Specialty Start Date End Date Michelle Marshall MD PCP - General Family Practice 02/18/23 Archana Weinstein MD Specialist Cardiology 06/03/21 documented as of this encounter
--- OUTSIDE RECORDS SUMMARY | 2025-08-03 14:04 | XMS_ITS | Encounter Summary ---
Author Organization [facility] Address [address] [place] [address] Care Team Providers Care Historical Society Director Name Role Phone Archana Weinstein MD Unavailable [phone] Michelle Marshall MD Primary Care Provider Unav ailable Reason for Visit * Reason Onset Date Comments pain, chest 08/31/2016 Encounter Details Date Type Department Care Team Description 08/31/2016 Telephone Adult Medicine [address] [id number] Christine Cruz MD [address] [place] [address] [id number] pain, chest Social History Tobacco Use Types Packs/Day Years [...] encounter Miscellaneous Notes * Telephone Encounter - Ronel Sevilla - 09/01/2016 3:51 PM EST Pt has an appt for: 09/24/16 ([facility]) 10:30 AM 30 min Christine Cruz MD ADULT MED [facility] Verbalized understanding and agreed with plan. Forward to records pool. * Telephone Encounter - Pilar Ng - 09/01/2016 2:28 PM EST Needs hosp folow up * Telephone Encounter - Rubina De Leon R.N. - 08/31/2016 9:27 AM EST Pt reports left CP starting last night, continuous. Pain does not radiate. Pt states yesterday, pain was made worse when taking a deep breath. Pain today is not affected by deep breathing. Pt A/Ox3, no C/O SOB/dizziness/weakness, no changes to CMS, no swelling reported, speech clear - able to speak in clear/full sentences, no N/V/D/fever (temperature not taken), abdomen nontender, ableto eat/drink, able to void, ambulates with steady gait. Pt advised to seek treatment in the ED, Pt verbalized understanding and agrees to plan. * Telephone Encounter - Rosi Ascencio - 08/31/2016 9:17 AM EST [phone] Cell * Telephone Encounter - Saira Mccollum - 08/31/2016 8:35 AM EST Symptoms patient is presenting: Patient was having chest pain last night on her left side, no arm pain, no sweating, no trouble speaking. If pain or injury related was it due to an accident at work or from a motor vehicle accident? NO If yes, gather 3rd alliance party insurance information Date of accident/Injury: How long has patient had these symptoms?: yesterday. PCP: Christine Cruz Payor: FAMILY HEALTH PLAN / Plan: POS $0 [place] [id number] / Product Type: POS [id number] documented in this encounter Plan of Treatment Not on file documented as of this encounter Visit Diagnoses Not on filedocumented in this encounter Care Teams Historical Society Director Relationship Specialty Start Date End Date Michelle Marshall MD PCP - General Family Practice 02/18/23 Archana Weinstein MD Specialist Cardiology 06/03/21 documented as of this encounter
--- OUTSIDE RECORDS SUMMARY | 2025-08-03 14:04 | XMS_ITS | Encounter Summary ---
Author Organization [facility] Address [address] [place] [address] Care Team Providers Care Ground Nuclear Weapons Assembly Officer Name Role Phone Archana Weinstein MD Unavailable Michelle Marshall MD Primary Care Provider Unav ailable Encounter Details Date Type Department Care Team Description 06/03/2021 SCAN Medical Records [address] [place] [id number] [place] [address] Social History Tobacco Use Types Packs/Day Years [...] have Coronavirus / COVID-19? No / Unsure 05/30/2021 10:59 AM EDT documented as of this encounter Plan of Treatment Not on file documented as of this encounter Visit Diagnoses Not on filedocumented in this encounter Care Teams Ground Nuclear Weapons Assembly Officer Relationship Specialty Start Date End Date Michelle Marshall MD PCP - General Family Practice 02/18/23 Archana Weinstein MD Specialist Cardiology 06/03/21 documented as of this encounter
--- OUTSIDE RECORDS SUMMARY | 2025-08-03 14:04 | XMS_ITS | Encounter Summary ---
Author Organization [facility] Address [address] [place] [address] Care Team Providers Care Shelving Supervisor Name Role Phone Maico Churchill MD Primary Care Provider Paris Nickolas Pastor MD Primary Care Provider Unavail able Archana Weinstein MD Unavailable [phone] Michelle Marshall MD Primary Care Provider Unav ailable Encounter Details Date Type Department Care Team Description 09/30/2012 Document Specialist Report Medical Records [address] [place] [address] Estuardo Rider [address] [place] [address] Social History Tobacco Use Types Packs/Day Years [...] on filedocumented in this encounter Care Teams Shelving Supervisor Relationship Specialty Start Date End Date Maico Churchill MD PCP - General 02/08/09 07/31/14 Nickolas Avelar MD PCP - General Internal Medicine 08/01/14 05/29/15 Michelle Marshall MD PCP - General Family Practice 02/18/23 Archana Weinstein MD Specialist Cardiology 06/03/21 documented as of this encounter
--- OUTSIDE RECORDS SUMMARY | 2025-08-03 14:04 | XMS_ITS | Encounter Summary ---
Author Organization [facility] Address [address] [place] [address] Care Team Providers Care Dental Nurse Name Role Phone Archana Weinstein MD Unavailable [phone] Michelle Marshall MD Primary Care Provider Unav ailable Encounter Details Date Type Department Care Team Description 08/06/2021 SCAN Medical Records [address] [place] [address] Erin Booker PA Social History Tobacco Use Types Packs/Day Years [...] on filedocumented in this encounter Care Teams Dental Nurse Relationship Specialty Start Date End Date Michelle Marshall MD PCP - General Family Practice 02/18/23 Archana Weinstein MD Specialist Cardiology 06/03/21 documented as of this encounter
--- OUTSIDE RECORDS SUMMARY | 2025-08-03 14:04 | XMS_ITS | Encounter Summary ---
Author Organization [facility] Address [address] [place] [address] Care Team Providers Care Manager Mortgage Name Role Phone Archana Weinstein MD Unavailable [phone] Michelle Marshall MD Primary Care Provider Unav ailable Encounter Details Date Type Department Care Team Description 11/24/2019 Pt. Non Urgent Medical Question Physiatry - [address] [address] Jyotsna Vasquez MD [address] [place] [address] [place], [place] [id number] Social History Tobacco Use Types Packs/Day Years [...] as of this encounter Progress Notes * Sissy John M.A. - 11/24/2019 9:39 AM ESTFrom: Yohana Oates To: Jyotsna Vasquez MD Sent: 11/24/2019 9:32 AM EST Subject: Shot for pain Hi I have not received an appointment for the shot. Macrina Muller documented in this encounter Plan of Treatment Not on file documented as of this encounter Visit Diagnoses Not on filedocumented in this encounter Care Teams Manager Mortgage Relationship Specialty Start Date End Date Michelle Marshall MD PCP - General Family Practice 02/18/23 Archana Weinstein MD Specialist Cardiology 06/03/21 documented as of this encounter
--- OUTSIDE RECORDS SUMMARY | 2025-08-03 14:04 | XMS_ITS | Encounter Summary ---
Author Organization [facility] Address [address] [place] [address] Care Team Providers Care Automobile Parker Name Role Phone Archana Weinstein MD Unavailable [phone] Michelle Marshall MD Primary Care Provider Unav ailable Encounter Details Date Type Department Care Team Description 04/01/2017 PNO Controlled Substance Contract Medical Records [address] [place] [address] Abstract, Provider Social History Tobacco Use Types [...] on filedocumented in this encounter Care Teams Automobile Parker Relationship Specialty Start Date End Date Michelle Marshall MD PCP - General Family Practice 02/18/23 Archana Weinstein MD Specialist Cardiology 06/03/21 documented as of this encounter
--- OUTSIDE RECORDS SUMMARY | 2025-08-03 14:04 | XMS_ITS | Encounter Summary ---
Author Organization [facility] Address [address] [place] [address] Care Team Providers Care Cloth Trimmer Hand Name Role Phone Archana Weinstein MD Unavailable [phone] Michelle Marshall MD Primary Care Provider Unav ailable Encounter Details Date Type Department Care Team Description 06/11/2021 Taxi Proprietor Report Medical Records [address] [place] [address] Abstract, Provider Social History Tobacco Use Types [...] on filedocumented in this encounter Care Teams Cloth Trimmer Hand Relationship Specialty Start Date End Date Michelle Marshall MD PCP - General Family Practice 02/18/23 Archana Weinstein MD Specialist Cardiology 06/03/21 documented as of this encounter
--- OUTSIDE RECORDS SUMMARY | 2025-08-03 14:04 | XMS_ITS | Encounter Summary ---
Author Organization [facility] Address [address] [place] [address] Care Team Providers Care Dandy Tender Name Role Phone Maico Churchill MD Primary Care Provider Paris varuthble Nickolas Avelar MD Primary Care Provider Unavail able Archana Weinstein MD Unavailable [phone] Michelle Marshall MD Primary Care Provider Unav ailable Encounter Details Date Type Department Care Team Description 03/06/2010 [facility] Medical Records [address] [place] [address] Phillip Loera MD Social History Tobacco Use [...] on filedocumented in this encounter Care Teams Dandy Tender Relationship Specialty Start Date End Date Maico Churchill MD PCP - General 02/08/09 07/31/14 Nickolas Avelar MD PCP - General Internal Medicine 08/01/14 05/29/15 Michelle Marshall MD PCP - General Family Practice 02/18/23 Archana Weinstein MD Specialist Cardiology 06/03/21 documented as of this encounter
--- OUTSIDE RECORDS SUMMARY | 2025-08-03 14:04 | XMS_ITS | Encounter Summary ---
Author Organization [facility] Address [address] [place] [address] Care Team Providers Care Manager Travel Name Role Phone Archana Weinstein MD Unavailable [phone] Michelle Marshall MD Primary Care Provider Unav ailable Encounter Details Date Type Department Care Team Description 02/25/2016 Slot Floor Attendant Report Medical Records [address] [place] [address] Vargas Bowens Social History Tobacco Use Types [...] filedocumented in this encounter Care Teams Manager Travel Relationship Specialty Start Date End Date Michelle Marshall MD PCP - General Family Practice 02/18/23 Archana Weinstein MD Specialist Cardiology 06/03/21 documented as of this encounter
--- OUTSIDE RECORDS SUMMARY | 2025-08-03 14:04 | XMS_ITS | Encounter Summary ---
Author Organization [facility] Address [address] [place] [address] Care Team Providers Care Nanotechnician Name Role Phone Archana Weinstein MD Unavailable [phone] Michelle Marshall MD Primary Care Provider Unav ailable Encounter Details Date Type Department Care Team Description 05/21/2016 Refill Adult Medicine [address] [address] Estuardo Morillo PA-C Social History Tobacco Use Types Packs/Day Years [...] Miscellaneous Notes * Telephone Encounter - Nini Srivastava M.A. - 05/26/2016 2:18 PM EDT Patient is calling on status of refill, she would like a call back at [phone] when it is ready. Thank you * Telephone Encounter - Rayna Segovia M.A. - 05/26/2016 2:07 PM EDT I'm unable to locate this script, it is not in ppu or filled at the pharmacy, please sign again. * Telephone Encounter - Tequila EstrellaP.NIsaias - 05/22/2016 8:54 AM EDT Controlled substance contract and last issue date of medication reviewed. Patient is due for medication. Component Value Date URINEOXYCOD NEGATIVE 01/10/2016 URBENZO NEGATIVE 01/10/2016 URAMPHETAMIN NEGATIVE 01/10/2016 URMARIJUANA NEGATIVE 01/10/2016 UROPIATES NEGATIVE 01/10/2016 URBARBITUATE NEGATIVE 01/10/2016 URCOCAINE NEGATIVE 01/10/2016 HYDROCODONE Negative 01/10/2016 Last office visit 05/18/16 * Telephone Encounter - Tequila EstrellaPIsaiasNIsaias - 05/22/2016 8:53 AM EDTFrom: Yohana Oates To: Estuardo Morillo PA-C Sent: 05/21/2016 9:08 PM EDT Subject: Medication Renewal Request Original authorizing provider: ERIK Morataya would like a refill of the following medications: tramadol (ULTRAM) 50 MG tablet [Estuardo Morillo PA-C] Preferred pharmacy: [facility] [address] [place] [address] Comment: documented in this encounter Plan of Treatment Not on file documented as of this encounter Visit Diagnoses Diagnosis Osteoarthritis of cervical spine, unspecified spinal osteoarthritis complication status- Primary documented in this encounter Care Teams Nanotechnician Relationship Specialty Start Date End Date Michelle Marshall MD PCP - General Family Practice 02/18/23 Archana Weinstein MD Specialist Cardiology 06/03/21 documented as of this encounter
--- OUTSIDE RECORDS SUMMARY | 2025-08-03 14:04 | XMS_ITS | Encounter Summary ---
Author Organization [facility] Address [address] [place] [address] Care Team Providers Care Assistant Editor Name Role Phone Maico Churchill MD Primary Care Provider Paris vailable Nickolas Avelar MD Primary Care Provider Unavail able Archana Weinstein MD Unavailable [phone] Michelle Marshall MD Primary Care Provider Unav ailable Encounter Details Date Type Department Care Team Description 01/17/2013 Sand Mixer Report Medical Records [address] [place] [address] Estuardo Rider MD Social History Tobacco Use [...] on filedocumented in this encounter Care Teams Assistant Editor Relationship Specialty Start Date End Date Maico Churchill MD PCP - General 02/08/09 07/31/14 Nickolas Avelar MD PCP - General Internal Medicine 08/01/14 05/29/15 Michelle Marshall MD PCP - General Family Practice 02/18/23 Archana Weinstein MD Specialist Cardiology 06/03/21 documented as of this encounter
--- OUTSIDE RECORDS SUMMARY | 2025-08-03 14:04 | XMS_ITS | Encounter Summary ---
Author Organization [facility] Address [address] [place] [address] Care Team Providers Care Waterside Worker Name Role Phone Maico Churchill MD Primary Care Provider Paris vailable Nickolas Avelar MD Primary Care Provider Unavail able Archana Weinstein MD Unavailable Michelle Marshall MD Primary Care Provider Unav ailable Encounter Details Date Type Department Care Team Description 08/26/2013 [facility] Medical Records [address] [place] [address] Sarthak Eli MD Social History Tobacco Use [...] on filedocumented in this encounter Care Teams Waterside Worker Relationship Specialty Start Date End Date Maico Churchill MD PCP - General 02/08/09 07/31/14 Nickolas Avelar MD PCP - General Internal Medicine 08/01/14 05/29/15 Michelle Marshall MD PCP - General Family Practice 02/18/23 Archana Weinstein MD Specialist Cardiology 06/03/21 documented as of this encounter
--- OUTSIDE RECORDS SUMMARY | 2025-08-03 14:05 | XMS_ITS | Encounter Summary ---
Author Organization [facility] Address [address] [place] [address] Care Team Providers Care Gang Supervisor Name Role Phone Maico Churchill MD Primary Care Provider Paris vailable Nickolas Avelar MD Primary Care Provider Unavail able Archana Weinstein MD Unavailable [phone] Michelle Marshall MD Primary Care Provider Unav ailable Encounter Details Date Type Department Care Team Description 12/13/2013 Hospitality Ambassador Report Medical Records [address] [place] [address] Phillip Loera MD Social History Tobacco Use [...] on filedocumented in this encounter Care Teams Gang Supervisor Relationship Specialty Start Date End Date Maico Churchill MD PCP - General 02/08/09 07/31/14 Nickolas Avelar MD PCP - General Internal Medicine 08/01/14 05/29/15 Michelle Marshall MD PCP - General Family Practice 02/18/23 Archana Weinstein MD Specialist Cardiology 06/03/21 documented as of this encounter
--- OUTSIDE RECORDS SUMMARY | 2025-08-03 14:05 | XMS_ITS | Encounter Summary ---
Author Organization [facility] Address [address] [place] [address] Care Team Providers Care Safekeeping Clerk Name Role Phone Maico Churchill MD Primary Care Provider Paris vailable Nickolas Avelar MD Primary Care Provider Unavail able Archana Weinstein MD Unavailable [phone] Michelle Marshall MD Primary Care Provider Unav ailable Encounter Details Date Type Department Care Team Description 1950 Waste Baler Report Medical Records [address] [place] [address] Phillip Loera MD Social History Tobacco Use Types Packs/Day Years Used Date Smoking Tobacco: Never Assessed Sex Assigned at Date Recorded Female 11/24/2019 9:[address] Job Start Date Occupation Industry Not on file Not on file Not on file documented as of this encounter Plan of Treatment Not on file documented as of this encounter Visit Diagnoses Not on filedocumented in this encounter Care Teams Safekeeping Clerk Relationship Specialty Start Date End Date Maico Churchill MD PCP - General 02/08/09 07/31/14 Nickolas Avelar MD PCP - General Internal Medicine 08/01/14 05/29/15 Michelle Marshall MD PCP - General Family Practice 02/18/23 Archana Weinstein MD Specialist Cardiology 06/03/21 documented as of this encounter
== END 2025-08-03 10:53 | disposition home or self-care (01) ==
LOC: HO.HOSX 10:52
PROVIDERS: PCP Family Medicine; Referring Provider Physical Medicine & Rehabilitation; Visit Provider Neurological Surgery
DX: Z47.89 Encounter for other orthopedic aftercare (principal); M40.14 Other secondary kyphosis, thoracic region
CPT/HCPCS: 72070; 99202

== ENCOUNTER 2025-08-03 10:52 | Outpatient (AMB) | payer OTHER, SELFPAY ==
[2025-08-03 11:00] VITALS: BMI 23.0
--- NOTE | 2025-08-03 11:00 | A.SPINEOV_ITS ---
Vital Signs 08/03/25 11:00 Height 5 ft 5 in Weight 138 lb BMI 23.0 Intake Visit Reasons: thoracic pain Intake Note: Ms. Reid Oates is here today c/o Mid back pain. Hospice/Home Health Aide Required: No Allergies aspirin Allergy (Unknown, Verified 08/03/25 11:03) Unknown duloxetine (From Cymbalta) Allergy (Unknown, Verified 08/03/25 11:03) Unknown hydroxychloroquine (From Plaquenil) Allergy (Unknown, Verified 08/03/25 11:03) Unknown NSAIDS (Non-Steroidal Anti-Inflamma Allergy (Unknown, Verified 08/03/25 11:03) Unknown oxycodone Allergy (Unknown, Verified 08/03/25 11:03) Unknown turkey Allergy (Unknown, Verified 08/03/25 11:03) Unknown Physical Exam Vital Signs: BMI result Body Mass Index 23.0 Assessment & Plan Assessment & Plan (1) Other secondary kyphosis, thoracic region: Code(s): M40.14 - Other secondary kyphosis, thoracic region Category: Medical Plan: Dear colleague Thank you for referring Yohana Oates to the office today with a chief complaint of thoracic pain. HPI: This 75-year-old female has an extensive spinal surgical history includes fusion of the cervical spine, thoracic spine and lumbar spine. She states she had a thoracic fusion in 2016 for thoracic pain. In 2018 she had thoracic instrumentation removed for hardware failure . Over time she started to develop progressive pain in the mid to upper thoracic region. Pain comes with standing sitting and walking in his better when she lays down. She tried injections at [facility] and was referred to me for surgical consultation. The following conservative treatment options were tried without success tylenol, physical therapy cortisone shots PMH: Hypertension, osteoporosis chronic kidney disease, hypothyroidism, RA Medications: Amlodipine, vitamin-D and calcium, cyclobenzaprine, famotidine, leflunomide, levothyroxine, loratadine, lovastatin, metoprolol, telmisartan Allergies: Aspirin, NSAIDs, Plaquenil, Cymbalta Social history: . Retired. Nonsmoker Physical Exam: Pleasant female. She ambulates with a cane. On inspection there is a thoracic kyphosis, which is exactly in the area where the pain is. No neurological deficits for motor sensation or reflexes. Radiological Studies: MRI of the thoracic spine done at [] on 04/20/2025 shows a thoracic kyphosis in the area T7-T10 due to a compression fracture status post thoracic laminectomy in that area. Impression/Plan: This patient is suffering from thoracic kyphosis causing significant pain in that region. She also has osteoporosis according to the patient. She had multiple spinal procedures done including instrumented fusions in the cervical spine thoracic spine and lumbar spine. I would like to obtain a regular x-ray and a CT scan of the thoracic spine to assess her bone quality before I can make a decision if surgery would be beneficial. Thank you for allowing me to participate in your patients care. total time spent was 50 minutes in counseling ,coordination of plan, personal review of imaging, surgical decision making and subsequent plan Baljinder Merritt MD, PhD Spine Fellowship Trained Neurosurgeon Director, [facility] Orders: Orders XR thoracic spine 2V Today M40.14 - Other secondary kyphosis, thoracic region CT thoracic spine wo IV con Today M40.14 - Other secondary kyphosis, thoracic region Coding Level of Care Code New Pt Level 4 (79269) Diagnoses Other secondary kyphosis, thoracic region M40.14
--- OUTSIDE RECORDS SUMMARY | 2025-08-03 12:58 | XMS_ITS | Encounter Summary ---
Author Organization [facility] Address [address] [place] [address] Phone Care Team Providers Care Rehab Aide Name Role Phone Michelle Marshall MD Primary Care Provider [phone] Encounter Details Date Type Department Care Team (Latest Contact Info) Description 10/01/2023 Ancillary Orders [address] [address] Joanna Gomes MD [address] [place] [address] Orthopedics & Sports Medicine, [place] [address] [email or web address] Osteoarthritis of both hips, unspecified osteoarthritis type (Primary Dx) Social History Tobacco Use Types Packs/Day Years Used Date Smoking Tobacco: Former Cigarettes 0 09/27/1967 - 09/27/1969 Smokeless Tobacco: Never Comments:former 40 years ago Alcohol Use Standard Drinks/Week Comments Never 0 (1 standard drink = 0.6 oz pur e alcohol) Education Answer Date Recorded Are you interested in more education? Not on trinity e 01/21/2023 Are you concerned about learning? Not on file 01/21/2023 No 01/21/2023 No 01/21/2023 Digital Access Answer Date Recorded No 02/20/2023 No 02/20/2023 Reliable internet access at home? Not on file 02/20/2023 Device with a working camera? Not on file Comments No Sex and Gender Information Value Date Recorded Sex Assigned at Female 06/10/2018 6:55 PM EDT Legal Sex Female 10:04 PM EDT Gender Identity Female 06/10/2018 6:55 PM EDT Sexual Orientation Straight 06/10/2018 6: 55 PM EDT documented as of this encounter Plan of Treatment Upcoming Encounters Date Type Department Care Team (Late st Contact Info) Description 08/07/2025 8:15 AM EST Office Visit [facility] [address] [facility] 3rd Floor, [address] [place] [address] Storm Scales DO [address] [address] [email or web address] 08/22/2025 3:15 PM EST Office Visit [facility] [address] [place] [address] Unknown, Unknown, Connie Garrido PA-C [address] [place] [address] 09/04/2025 11:10 AM EST Office Visit [facility] Rheumatology [address] [place] [address] Raina Bernard MD, MPH 22 [facility], [address] [address] Pending Results Name Type Priority Associated Diagnoses Date /Time FL Guidance Needle Placement Non-Spine Imaging Routine Osteoarthritis of both hips, unspecified osteoarthritis type 10/05/2023 10:42 AM EST Scheduled Orders Name Type Priority Associated Diagnoses Orde r Schedule FL Guidance Needle Placement Non-Spine Imaging Routine Osteoarthritis of both hips, unspecified osteoarthritis type 1 Occurrences starting 10/01/2023 until 12/31/2023 documented as of this encounter Visit Diagnoses Diagnosis Osteoarthritis of both hips, unspecified osteoarthritis type- Primary documented in this encounter Care Teams Rehab Aide Relationship Specialty Start Date End Date Michelle Marshall MD [address] [place] [address] [email or web address] PCP - General Family Medicine 08/18/23 documented as of this encounter Additional Source Comments The information contained in this document represents components of the legal health record. It is not the complete legal health record.[facility]
--- OUTSIDE RECORDS SUMMARY | 2025-08-03 12:59 | XMS_ITS | Encounter Summary ---
Author Organization [facility] Address [address] [facility] [address] [place] [address] Phone Care Team Providers Care Keyboarding Teacher Name Role Phone Michelle Marshall MD Primary Care Provider Michelle Marshall MD Primary Care Provider Encounter Details Date Type Department Care Team (Late st Contact Info) Description 08/10/2022 Prep for Surgery [facility] Medicine [address] [place] [address] Susan Jones MD [address] [place] [address] Orthopedics & Sports Medicine, [facility] [place] [address] [email or web address] Social History Tobacco Use Types Packs/Day Years Used Date Smoking Tobacco: Former Cigarettes Smokeless Tobacco: Never Comments:former 40 years ago Alcohol Use Standard Drinks/Week Comments Not Currently 0 (1 standard drink = 0.6 oz pur e alcohol) Comments No Sex and Gender Information Value [...] Description 08/07/2025 8:15 AM EST Office Visit [facility] [address] [place] [address] 3rd Floor, [address] [place] [address] Storm Scales DO [address] [facility] [address] [place] [address] [email or web address] 08/22/2025 3:15 PM EST Office Visit [facility] 10 [place] [address] Unknown, Unknown, Connie Garrido PA-C [address] [address] 09/04/2025 11:10 AM EST Office Visit [facility] Rheumatology 22 [place] [address] Raina Bernard MD, MPH [address] [facility], [address] [place] [address] documented as of this encounter Visit Diagnoses Not on filedocumented in this encounter Care Teams Keyboarding Teacher Relationship Specialty Start Date End Date Michelle Marshall MD PCP - General Family Medicine 08/10/22 08/17/23 Michelle Marshall MD [address] [place] [address] PCP - General Family Medicine 08/18/23 documented as of this encounter Additional Source Comments The information contained in this document represents components of the legal health record. It is not the complete legal health record.[facility]
--- OUTSIDE RECORDS SUMMARY | 2025-08-03 12:59 | XMS_ITS | Encounter Summary ---
Author Organization [facility] Address [address] [place] [address] Phone Care Team Providers Care Conditioner Tender Name Role Phone Christine Cruz MD Primary Care Provider [phone] Michelle Marshall MD Primary Care Provider [phone] Michelle Marshall MD Primary Care Provider [phone] Encounter Details Date Type Department Care Team (Late st Contact Info) Description 07/18/2022 Procedure Pass [facility], [address] [address] Social History Tobacco Use Types Packs/Day Years [...] PM EDT documented as of this encounter Functional Status * Calculated C-SSRS Risk Score (Lifetime/Recent) Answer Date of Assessment Author No Risk Indicated 07/18/2022 5:27 PM EDT Clint Garland, RN * [place] Suicide Severity Rating Scale (Screener/Recent Self-Report) Question Answer Date of Assessment Author 1. Wish to be (Past 1 Month) No 022 5:27 PM EDT Clint Garland, RN 2. Non-Specific Active Suici carmela Thoughts (Past 1 Month) No 07/18/2022 5:27 PM EDT Keanu Garland, MEJIA 6. Suicidal Behavior (Lifetime) No 5:27 PM EDT Clint Garland, RN documented as of this encounter Plan of Treatment Upcoming Encounters Date Type Department Care Team (Late st Contact Info) Description 08/07/2025 8:15 AM EST Office Visit [facility] [address] [facility] 3rd Floor, [address] [place] [address] Storm Scales DO [address] [address] [email or web address] 08/22/2025 3:15 PM EST Office Visit [facility] [address] [place] [address] Unknown, Unknown, Connie Garrido PA-C [address] [place] [address] 09/04/2025 11:10 AM EST Office Visit [facility] Rheumatology [address] [place] [address] Raina Bernard MD, MPH 22 [facility], [address] [place] [address] documented as of this encounter Visit Diagnoses Not on filedocumented in this encounter Care Teams Conditioner Tender Relationship Specialty Start Date End Date Christine Cruz MD [address] [place] [address] PCP - General 07/13/17 08/09/22 Michelle Marshall MD [address] [place] [address] PCP - General Family Medicine 08/10/22 08/17/23 Michelle Marshall MD [address] [place] [address] PCP - General Family Medicine 08/18/23 documented as of this encounter Additional Source Comments The information contained in this document represents components of the legal health record. It is not the complete legal health record.[facility]
--- OUTSIDE RECORDS SUMMARY | 2025-08-03 12:59 | XMS_ITS ---
Author Name [facility] Organization Unknown Encounters Encounter Type Encounter Reason Primary Diagnosis Location Date Ambulatory [facility] 07/07/2024 Care Team Organization Name Specialty Phone Email Start Date End Da te [facility] 2024
--- OUTSIDE RECORDS SUMMARY | 2025-08-03 12:59 | XMS_ITS | Encounter Summary ---
Author Organization [facility] Address [address] [facility] [address] [place] [address] Phone Care Team Providers Care Spice Cleaner Name Role Phone Michelle Marshall MD Primary Care Provider [phone] Michelle Marshall MD Primary Care Provider Encounter Details Date Type Department Care Team (Late st Contact Info) Description 09/09/2022 Procedure Pass [place] Admitting Dept - Virtual Department 30 [place] [address] Social History Tobacco Use Types Packs/Day Years Used Date Smoking Tobacco: Former Cigarettes 6 1969 Smokeless Tobacco: Never Comments:former 40 years ago [...] Encounters Date Type Department Care Team (Late Contact Info) Description 08/07/2025 8:15 AM EST Office Visit [facility] 22 [facility] 3rd Floor, [address] [place] [address] Storm Scales DO 22 [facility] [address] [place] [address] [email or web address] 08/22/2025 3:15 PM EST Office Visit [facility] 10 [place] [address] Unknown, Unknown, Connie Garrido PA-C [address] [address] 09/04/2025 11:10 AM EST Office Visit [facility] Rheumatology 22 [place] [address] Raina Bernard MD, MPH [address] [facility], [address] [place] [address] documented as of this encounter Visit Diagnoses Not on filedocumented in this encounter Care Teams Spice Cleaner Relationship Specialty Start Date End Date Michelle Marshall MD PCP - General Family Medicine 08/10/22 08/17/23 Michelle Marshall MD [address] [place] [address] PCP - General Family Medicine 08/18/23 documented as of this encounter Additional Source Comments The information contained in this document represents components of the legal health record. It is not the complete legal health record.[facility]
--- OUTSIDE RECORDS SUMMARY | 2025-08-03 12:59 | XMS_ITS | Encounter Summary ---
Author Organization [facility] Address [address] [place] [address] Phone Care Team Providers Care Manager Property Name Role Phone Christine Cruz MD Primary Care Provider [phone] Michelle Marshall MD Primary Care Provider [phone] Michelle Marshall MD Primary Care Provider [phone] Encounter Details Date Type Department Care Team (Late st Contact Info) Description 07/18/2022 Procedure Pass [facility], Ct Scan - [address] [address] Social History Tobacco Use Types Packs/Day Years [...] Indicated 07/18/2022 5:27 PM EDT Clint Garland, MEJIA * [place] Suicide Severity Rating Scale (Screener/Recent Self-Report) Question Answer Date of Assessment Author 1. Wish to be (Past 1 Month) No 10/22/2 022 5:27 PM EDT Clint Garland, RN 2. Non-Specific Active Suici carmela Thoughts (Past 1 Month) No 07/18/2022 5:27 PM EDT Keanu Garland, MEJIA 6. Suicidal Behavior (Lifetime) No 5:27 PM EDT Clint Garland, RN documented as of this encounter Plan of Treatment Upcoming Encounters Date Type Department Care Team (Late st Contact Info) Description 08/07/2025 8:15 AM EST Office Visit [facility] 22 [facility] 3rd Floor, [address] [place] [address] Storm Scales DO [address] [address] [email or web address] 08/22/2025 3:15 PM EST Office Visit [facility] [address] [place] [address] Unknown, Unknown, Connie Garrido PA-C [address] [address] 09/04/2025 11:10 AM EST Office Visit [facility] Rheumatology 22 [place] [address] Raina Bernard MD, MPH 22 [facility], [address] [place] [address] documented as of this encounter Visit Diagnoses Not on filedocumented in this encounter Care Teams Manager Property Relationship Specialty Start Date End Date Christine Cruz MD [address] [place] [address] PCP - General 07/13/17 08/09/22 Michelle Marshall MD [address] [place] [address] PCP - General Family Medicine 08/10/22 08/17/23 Michelle Marshall MD [address] [place] [address] [email or web address] PCP - General Family Medicine 08/18/23 documented as of this encounter Additional Source Comments The information contained in this document represents components of the legal health record. It is not the complete legal health record.[facility]
--- OUTSIDE RECORDS SUMMARY | 2025-08-03 12:59 | XMS_ITS | Encounter Summary ---
Author Organization [facility] Address [address] [place] [address] Phone Care Team Providers Care Auto Radiator Specialist Name Role Phone Michelle Marshall MD Primary Care Provider [phone] Encounter Details Date Type Department Care Team ([facility] Contact Info) Description 07/26/2024 Procedure Pass [place] Admitting Dept - Virtual Department 30 [place] [address] Social History Tobacco Use Types Packs/Day Years Used Date Smoking Tobacco: Former Cigarettes 0 09/27/1967 - 09/27/1969 Smokeless Tobacco: Never Comments:former 40 years ago Alcohol Use Standard Drinks/Week Comments Never 0 (1 standard drink = 0.6 oz pur e alcohol) Home Health Assessment: Transportation Answer Date Recorded Lack of Transportation (Medical) No 07/29/2024 Lack of Transportation (Non-Medical) No 07/29/2024 Patient Unable or Declines to Respond No 07/29/2024 Education Answer Date Recorded Are you interested in more education? Not on trinity e 01/21/2023 Are you concerned about learning? Not on file 01/21/2023 No 01/21/2023 No 01/21/2023 Food Answer Date Recorded Within the past 6 months we worried whether our food would run out before we got money to buy more. Never True 07/26/2024 Within the past 6 months the food we bought just didn't last and we didn't have enough money to get more. Never True Residential Stability Answer Date Recor ded What is your housing situation today? I have scott ferreira 07/26/2024 How many times have you move d in the past 12 months? Zero (I did not move) 07/26/2024 Paying for Meds Answer Date Recorded Do you have trouble paying for medicines? No 07/26/2024 Paying Utility Bills Answer Date Record ed Do you have trouble paying your heating or elect ricity bill? No 07/26/2024 Transportation Answer Date Recorded Has the lack of transportati on kept you from medical appointments or from getting medications? No 07/26/2024 Digital Access Answer Date Recorded No 07/26/2024 Yes 07/26/2024 Do you have reliable internet access at home? Ye s 07/26/2024 Do you have a device (e.g., phone, tablet, computer) with a working camera? Yes 07/26/2024 Intimate Partner Violence Answer Date R ecorded Are you denied basic needs s uch as food, clothing, or medical care? No 07/26/2024 In the past 12 months have y ou been in a relationship with a person who hurts, threatens, or tries to control you? No 07/26/2024 Are you denied basic needs s uch as food, clothing, or medical care? No 07/26/2024 In the past 12 months have y ou been in a relationship with a person who hurts, threatens, or tries to control you? No 07/26/2024 Comments No Sex and Gender Information Value Date Recorded Sex Assigned at Female 06/10/2018 6:55 PM EDT Legal Sex Female 10:04 PM EDT Gender Identity Female 06/10/2018 6:55 PM EDT Sexual Orientation Straight 06/10/2018 6: 55 PM EDT documented as of this encounter Functional Status * Calculated C-SSRS Risk Score (Lifetime/Recent) Answer Date of Assessment Author No Risk Indicated 07/26/2024 6:00 PM EDT Gregorio Escobar RN * [place] Suicide Severity Rating Scale (Screener/Recent Self-Report) Question Answer Date of Assessment Author 1. Wish to be (Past 1 Month) No 024 6:00 PM EDT Gregorio Escobar RN 2. Non-Specific Active Suici carmela Thoughts (Past 1 Month) No 07/26/2024 6:00 PM EDT Roni Escobar RN 6. Suicidal Behavior (Lifetime) No 4 6:00 PM EDT Gregorio Escobar RN documented as of this encounter Plan of Treatment Upcoming Encounters Date Type Department Care Team (Late st Contact Info) Description 08/07/2025 8:15 AM EST Office Visit [facility] [address] [facility] 3rd Floor, [address] [place] [address] Storm Scales, [address] [facility] [address] [place] [address] [email or web address] 08/22/2025 3:15 PM EST Office Visit [facility] 10 [place] [address] Unknown, Unknown, Connie Garrido PA-C [address] [address] 09/04/2025 11:10 AM EST Office Visit [facility] Rhe[facility]ology 22 [place] [address] Raina Bernard MD, MPH [address] [facility], [address] [place] [address] documented as of this encounter Visit Diagnoses Not on filedocumented in this encounter Care Teams Auto Radiator Specialist Relationship Specialty Start Date End Date Michelle Marshall MD [address] [place] [address] PCP - General Family Medicine 08/18/23 documented as of this encounter Additional Source Comments The information contained in this document represents components of the legal health record. It is not the complete legal health record.[facility]
--- OUTSIDE RECORDS SUMMARY | 2025-08-03 12:59 | XMS_ITS | Encounter Summary ---
Author Organization [facility] Address [address] [facility] [address] [place] [phone] Phone Care Team Providers Care Carbon Brushes Assembler Name Role Phone Michelle Marshall MD Primary Care Provider Encounter Details Date Type Department Care Team (Latest Contact Info) Description 09/13/2023 Transcribe Orders Virtual Department [address] [place] [address] Rajani Cheatham MD [address] [place] [id number] [email or web address] Dysphagia, unspecified type (Primary Dx) Social History Tobacco Use [...] Description 08/07/2025 8:15 AM EST Office Visit [facility] [address] Floor, [address] [place] [address] Storm Scales DO [address] [facility] [address] [place] [address] [email or web address] 08/22/2025 3:15 PM EST Office Visit [facility] 10 [place] [address] Unknown, Unknown, Connie Garrido PA-C [address] [address] 09/04/2025 11:10 AM EST Office Visit [facility] Rhe[facility] 22 [place] [address] Raina Bernard MD, MPH [address] [facility], [address] [place] [address] documented as of this encounter Results * FL BARIUM SWALLOW ESOPHAGRAM DOUBLE CONTRAST (09/17/2023 11:51 AM EST) Anatomical Region Laterality Modality Chest Computed Radiogr aphy 09/17/2023 12:0 0 PM EST Impressions 09/17/2023 12:31 PM EST Moderate esophageal dysmotility and extrinsic impression by aortic arch without evidence of associated obstruction. Laryngeal penetration without evidence of suzy aspiration. No gross mucosal pathology or ulceration. FLUOROSCOPY TIME: 1 minute 56 seconds NUMBER OF IMAGES: [id number] ATTESTATION: I, Estuardo Zaldivar as teaching physician, have reviewed the images for this case and if necessary edited the report originally created by Dayton Hazel. Narrative 09/17/2023 12:31 PM EST BARIUM SWALLOW ESOPHAGRAM DOUBLE CONTRAST HISTORY: Dysphagia. COMPARISON: CT cervical spine 08/22/2023. OPERATORS: Dayton Hazel SUPERVISING PHYSICIAN: Estuardo Zaldivar TECHNIQUE: Double contrast barium swallow examination was performed with Sodium Carbonate and Barium. FINDINGS: A preliminary lateral view of the neck demonstrates multilevel degenerative disc changes. There is an anterior spinal fixator extending from C4 to C6. No acute osseous abnormality. SWALLOW: The swallowing mechanism was grossly normal. Laryngeal penetration was visualized without evidence of suzy aspiration. There is moderate esophageal dysmotility represented by tertiary contractions and reversed peristalsis. Mild hypertrophy of the cricopharyngeus muscle was demonstrated in the lateral position. No gross mucosal pathology or ulceration. Extrinsic impression upon the proximal esophageal lumen by the aortic arch. The distal esophagus was mildly distended. There was no hiatal hernia or gastroesophageal reflux demonstrated despite provocative maneuvers. Transient holdup of a 13 mm barium tablet the level of the GE junction, which cleared with additional ingestion of water. Procedure Note Estuardo Zaldivar MD - 09/17/2023 BARIUM SWALLOW ESOPHAGRAM DOUBLE CONTRAST HISTORY: Dysphagia. COMPARISON: CT cervical spine 08/22/2023. OPERATORS: Dayton Hazel SUPERVISING PHYSICIAN: Estuardo Zaldivar TECHNIQUE: Double contrast barium swallow examination was performed withSodium Carbonate and Barium. FINDINGS: A preliminary lateral view of the neck demonstrates multileveldegenerative disc changes. There is an anterior spinal fixator extendingfrom C4 to C6. No acute osseous abnormality. SWALLOW: The swallowing mechanism was grossly normal. Laryngeal penetration wasvisualized without evidence of suzy aspiration. There is moderateesophageal dysmotility represented by tertiary contractions and reversedperistalsis. Mild hypertrophy of the cricopharyngeus muscle wasdemonstrated in the lateral position. No gross mucosal pathology or ulceration. Extrinsic impression upon theproximal esophageal lumen by the aortic arch. The distal esophagus wasmildly distended. There was no hiatal hernia or gastroesophageal refluxdemonstrated despite provocative maneuvers. Transient holdup of a 13 mmbarium tablet the level of the GE junction, which cleared with additionalingestion of water. IMPRESSION: Moderate esophageal dysmotility and extrinsic impression by aortic archwithout evidence of associated obstruction. Laryngeal penetration without evidence of suzy aspiration. No gross mucosal pathology or ulceration. FLUOROSCOPY TIME: 1 minute 56 seconds NUMBER OF IMAGES: [id number] ATTESTATION: I, Estuardo Zaldivar as teaching physician, have reviewed theimages for this case and if necessary edited the report originally createdby Dayton Hazel. Rajani Cheatham MD [facility] Final Resul t documented in this encounter Visit Diagnoses Diagnosis Dysphagia, unspecified type- Primary Dysphagia, unspecified type documented in this encounter Care Teams Carbon Brushes Assembler Relationship Specialty Start Date End Date Michelle Marshall MD [address] [place] [address] [email or web address] PCP - General Family Medicine 08/18/23 documented as of this encounter Additional Source Comments The information contained in this document represents components of the legal health record. It is not the complete legal health record.[facility]
--- OUTSIDE RECORDS SUMMARY | 2025-08-03 12:59 | XMS_ITS | Encounter Summary ---
Author Organization [facility] Address [address] [place] [address] Phone Care Team Providers Care Alley Worker Name Role Phone Michelle Marshall MD Primary Care Provider [phone] Encounter Details Date Type Department Care Team (Late st Contact Info) Description 08/22/2023 Procedure Pass [facility], Ct Scan - [facility] [address] [place] [address] Social History Tobacco Use Types Packs/Day Years [...] Date of Assessment Author No Risk Indicated 08/22/2023 9:37 AM Deanne Wang RN * Henrietta Suicide Severity Rating Scale (Screener/Recent Self-Report) Question Answer Date of Assessment Author 1. Wish to be (Past 1 Month) No 023 9:37 AM Deanne Riley RN 2. Non-Specific Active Suici carmela Thoughts (Past 1 Month) No 08/22/2023 9:37 AM Kelly Riley RN 3. Active Suicidal Ideation with any Methods (Not Plan) Without Intent to Act (Past 1 Month) No 08/22/2023 9:37 AM Deanne Riley RN 4. Active Suicidal Ideation with Some Intent to Act, Without Specific Plan (Past 1 Month) No 08/22/2023 9:37 AM Deanne Riley RN 5. Active Suicidal Ideation with Specific Plan and Intent (Past 1 Month) No 08/22/2023 9:37 AM Deanne Riley RN 6. Suicidal Behavior (Lifetime) No 9:37 AM Deanne Riley RN documented as of this encounter Plan of Treatment Upcoming Encounters Date Type Department Care Team (Late st Contact Info) Description 08/07/2025 8:15 AM EST Office Visit [facility] [address] [place] [address] 3rd Floor, [address] [place] [address] Storm Scales DO [address] [place] [address] [email or web address] 08/22/2025 3:15 PM EST Office Visit [facility] 10 [place] [address] Unknown, Unknown, Connie Garrido PA-C [address] [address] 09/04/2025 11:10 AM EST Office Visit [facility] Rheumatology [address] [place] [address] [place] [address] Raina Bernard MD, MPH [address] [facility], [address] [place] [address] [email or web address] documented as of this encounter Visit Diagnoses Not on filedocumented in this encounter Care Teams Alley Worker Relationship Specialty Start Date End Date Michelle Marshall MD [address] [place] [address] [email or web address] PCP - General Family Medicine 08/18/23 documented as of this encounter Additional Source Comments The information contained in this document represents components of the legal health record. It is not the complete legal health record.[facility]
--- OUTSIDE RECORDS SUMMARY | 2025-08-03 12:59 | XMS_ITS | Encounter Summary ---
Author Organization [facility] Address [address] [facility] [address] [place] [address] Phone Care Team Providers Care Subscription Crew Leader Name Role Phone Michelle Marshall MD Primary Care Provider [phone] Encounter Details Date Type Department Care Team (Late st Contact Info) Description 12/13/2023 Ancillary Orders [facility]ology [address] [place] [address] Raina Bernard MD, MPH [address] [facility], [address] [place] [address] [email or web address] Shoulder joint stiffness, bilateral (Primary Dx) Social History Tobacco Use Types [...] Description 08/07/2025 8:15 AM EST Office Visit [facility] [address] [facility] [address] Floor, [address] [place] [address] Storm Scales DO [address] [facility] [address] [place] [address] [email or web address] 08/22/2025 3:15 PM EST Office Visit [facility] 10 [place] [address] Unknown, Unknown, Connie Garrido PA-C [address] [address] 09/04/2025 11:10 AM EST Office Visit [facility] Rhe[facility] [address] [place] [address] Raina Bernard MD, MPH [address] [facility], [address] [place] [address] documented as of this encounter Results * XR SHOULDER 2 VIEWS (LEFT) (12/13/2023 11:58 AM EDT) Anatomical Region Laterality Modality Shoulder Left Computed Radiogr aphy 12/16/2023 3:56 PM EDT Impressions 12/16/2023 3:59 PM EDT Degenerative changes at the acromioclavicular joints, more severe on the right than left. Mild degenerative changes at the glenohumeral joints. Evidence of calcific tendinitis on the right. Narrative 12/16/2023 3:59 PM EDT XR SHOULDER 2 OR MORE VIEWS (RIGHT), XR SHOULDER 2 OR MORE VIEWS (LEFT) Referring clinician's provided indication for this examination in Epic: Pain COMPARISON: None. FINDINGS: Right shoulder: Severe narrowing of the AC joint. Moderate marginal spurring and subchondral sclerosis. Mild marginal spurring at the glenohumeral joint. No erosions. No fracture, subluxation or dislocation. Small amount of calcification adjacent to the lateral aspect of the humeral head. Left shoulder: Hypertrophic change at the acromioclavicular joint. More mild joint space narrowing and spurring at on the right. Mild marginal spurring at the glenohumeral joint. No erosions. No fracture, subluxation or dislocation. No suspicious soft tissue calcifications. Procedure Note Danyel Wilkins MD - 12/16/2023 XR SHOULDER 2 OR MORE VIEWS (RIGHT), XR SHOULDER 2 OR MORE VIEWS (LEFT) Referring clinician's provided indication for this examination in Epic:Pain COMPARISON: None. FINDINGS: Right shoulder: Severe narrowing of the AC joint. Moderate marginalspurring and subchondral sclerosis. Mild marginal spurring at theglenohumeral joint. No erosions. No fracture, subluxation or dislocation.Small amount of calcification adjacent to the lateral aspect of thehumeral head. Left shoulder: Hypertrophic change at the acromioclavicular joint. Moremild joint space narrowing and spurring at on the right. Mild marginalspurring at the glenohumeral joint. No erosions. No fracture, subluxationor dislocation. No suspicious soft tissue calcifications. IMPRESSION: Degenerative changes at the acromioclavicular joints, more severe on theright than left. Mild degenerative changes at the glenohumeral joints.Evidence of calcific tendinitis on the right. Raina Bernard MD, MPH IMG XR UPPER EXTREMITY F inal Result documented in this encounter Visit Diagnoses Diagnosis Shoulder joint stiffness, bilateral Shoulder joint stiffness, bilateral- Primary documented in this encounter Care Teams Subscription Crew Leader Relationship Specialty Start Date End Date Michelle Marshall MD [address] [place] [phone] [email or web address] PCP - General Family Medicine 08/18/23 documented as of this encounter Additional Source Comments The information contained in this document represents components of the legal health record. It is not the complete legal health record.[facility]
--- OUTSIDE RECORDS SUMMARY | 2025-08-03 13:00 | XMS_ITS | Clinical Summary ---
Author Organization [facility] Address [address] [facility] [address] [place] [id number] Phone Care Team Providers Care Clinical Nursing Intern Name Role Phone Michelle Marshall MD Primary Care Provider Allergies Active Allergy Reactions Criticality Noted Date Comments Adhesive 07/19/2024 Aspirin Anaphylaxis High 06/10/2018 Buprenorphine Nausea and/or Vomiting 01/26/2022 Tried the patch and had severe n/v Hydroxychloroquine 08/28/2024 Maculopathy by 05/2024 VFT Nsaids (Non-Steroidal Anti-Inflammatory Drug) Anaphylaxis High 06/10/2018 Oxycodone Nausea and/or Vomiting 08/28/2024 [place] Other (See Comments) 06/10/2018 Chest pain Medications amLODIPine (NORVASC) 10 MG tablet Take 10 mg by mouth daily. Active cyclobenzaprine (FLEXERIL) 5 MG tablet Take 5 mg by mouth 2 (two) times a day as needed. Active levothyroxine (SYNTHROID, LEVOTHROID) 50 MCG tablet Take 50 mcg by mouth. Active lovastatin (MEVACOR) 10 MG tablet Take 10 mg by mouth. Active loratadine (CLARITIN) 10 mg tablet Take 10 mg by mouth daily. Active CALCIUM ORAL Take 1,000 mg by mouth 2 (two) times a day. Take two tablets Active cholecalciferol (VITAMIN D3) 25 MCG (1,000 unit) tablet Take 1,000 Units by mouth daily. Active EPINEPHrine 0.15 mg/0.15 mL auto-injector Inject 0.15 mg into the muscle. Active metoprolol succinate (TOPROL-XL) 25 MG 24 hr tablet Take 25 mg by mouth daily. 07/23/2022 Active EPINEPHrine 0.3 mg/0.3 mL auto-injector Inject 0.3 mg into the muscle once as needed for anaphylaxis. 01/30/2025 Active famotidine (PEPCID) 40 MG tablet Take 40 mg by mouth daily. Active leflunomide (ARAVA) 20 MG tabletIndicatio ns:Seronegative rheumatoid arthritis Take 1 tablet (20 mg total) by mouth daily. 90 tablet 04/30/2025 Active Active Problems Problem Noted Date Diagnosed Date Rotator cuff tendonitis, left 04/30/2025 Assessment & Plan (04/30/2025 3:55 PM EDT): Local steroid injection today as detailed in procedure note Osteoarthritis 07/27/2024 Aftercare following right hip joint replacement surgery 07/26/2024 Non-toxic uninodular goiter 06/07/2024 Chronic pain 06/07/2024 Osteoarthritis of right knee 04/18/2024 Overview (04/30/2025): Intra-articular steroid injection 03/2024 and 04/2025 Assessment & Plan (04/30/2025 3:55 PM EDT): Local steroid injection today as detailed in procedure note Assessment & Plan (08/28/2024 2:54 PM EST): Pain improved but not completely resolved since 06/2024 right KIM; questionable benefit of 03/2024 intra-articular steroid injection Assessment & Plan (04/18/2024 1:33 PM EDT): Steroid injection today as per procedure note Shoulder joint stiffness, bilateral 12/13/2023 Overview (04/18/2024): Plain films 11/2023 Degenerative changes at the acromioclavicular joints, more severe on the right than left. Mild degenerative changes at the glenohumeral joints. Evidence of calcific tendinitis on the right. Assessment & Plan (04/18/2024 1:35 PM EDT): No sustained benefit since left shoulder injection 11/2023 Assessment & Plan (12/13/2023 12:28 PM EDT): Steroid injection to left shoulder today as detailed in procedure note; baseline plain films. Repeat intra-articular steroid injection to right shoulder pending clinical course and plain film findings. Erosive osteoarthritis 12/09/2022 Overview (04/30/2025): Plain films bl hands 01/2022 - MCP joint spaces spared leflunomide dc'd 11/2022 Colchicine 11/2022 to 07/2023, not effective and resulted in significant hair loss Celecoxib contraindicated given ibuprofen allergy Assessment & Plan (04/18/2024 1:31 PM EDT): Leflunomide re-trial on hold given planned right KIM for late 06/2024. Assessment & Plan (12/13/2023 12:24 PM EDT): Severe finger arthritis with limited tx options / medication hx detailed above. Discussed potential benefit of leflunomide re-trial with patient today and she prefers to wait on this option, which is reasonable. For re-evaluation on f/u. Assessment & Plan (08/13/2023 12:51 PM EST): Stop colchicine given questionable efficacy; will continue hydroxychloroquine for now. Patient reminded to ask pharmacist for input re: potential safety of celecoxib in context of ibuprofen allergy. Assessment & Plan (03/19/2023 4:14 PM EDT): Overall modest symptomatic benefit of longstanding hydroxychloroquine with recent addition of colchicine. Discussed potential benefit of celecoxib; patient will seek input from pharmacist and possibly take off man given her h/o anaphylaxis with ibuprofen. Assessment & Plan (12/09/2022 12:51 PM EDT): ? Seronegative rheumatoid arthritis and/or erosive OA; trial dc leflunomide (overall modest symptomatic benefit) and add colchicine to continued hydroxychloroquine Encounter for monitoring leflunomide therapy Assessment & Plan (08/28/2024 2:55 PM EST): Common AEs of leflunomide reviewed with patient today; monitoring labs after 3-4 wks on medication and then every 3-4 months thereafter. She will hold leflunomide for any clinically significant infection. Assessment & Plan (04/18/2024 1:36 PM EDT): No indication to hold hydroxychloroquine perioperatively Assessment & Plan (12/13/2023 12:28 PM EDT): 2022 VFT normal per patient report; has f/u scheduled for 04/2024. Current dose if 4.6 mg/kg/day, which is appropriate Assessment & Plan (03/19/2023 11:42 AM EDT): No AEs to colchicine; nl VFT per patient report 03/2022; upcoming eye exam 03/2023 Assessment & Plan (12/09/2022 12:52 PM EDT): Currently taking lovastatin; baseline CK prior to starting colchicine trial Age-related osteoporosis wit hout current pathological fracture 12/07/2022 Overview (04/30/2025): DEXA 04/2022 zuleyma T-score -2.4 left fem neck; -2.3 left forearm; 1st dose zoledronic acid Sep 2017 - ? 2020 at [facility] (therapy interrupted due to closure of rheum practice) Zoledronic acid resumed 12/2022; held 2023 given dysphagia; second dose 01/2025 Barium swallow 08/2023 Moderate esophageal dysmotility and extrinsic impression by aortic arch without evidence of associated obstruction. Laryngeal penetration without evidence of suzy aspiration. No gross mucosal pathology or ulceration. Upper endoscopy completed 10/2023 : Impression: - Z-line irregular, 35 cm from the incisors. - Normal esophagus. - Gastroesophageal flap valve classified as Hill Grade III (minimal fold, loose to endoscope, hiatal hernia likely). - The esophagus was dilated with both a 13mm and 15mm savory dilator. No mucosal changes were visualized following dilation with the 13mm savory dilator. Mucosal tearing was visualized at the GE junction following dilation with the 15mm savory dilator. Normal stomach and duodenum. Assessment & Plan (04/30/2025 3:54 PM EDT): No contraindication to proceeding with third and final zoledronic acid dose due 01/2026; updated DEXA following completion of the 3 dose series. Assessment & Plan (08/28/2024 2:52 PM EST): No contraindication to 3rd zoledronic acid dose pending confirmation of persistently adequate D and renal function. Note no recent dysphagia. Repeat DEXA following 3rd dose of zoledronic acid. Assessment & Plan (04/18/2024 1:34 PM EDT): Upper endoscopy completed 10/2023 : Impression: - Z-line irregular, 35 cm from the incisors. - Normal esophagus. - Gastroesophageal flap valve classified as Hill Grade III (minimal fold, loose to endoscope, hiatal hernia likely). - The esophagus was dilated with both a 13mm and 15mm savory dilator. No mucosal changes were visualized following dilation with the 13mm savory dilator. Mucosal tearing was visualized at the GE junction following dilation with the 15mm savory dilator. A guidewire was used to help advance the savory dilators. - Normal stomach. - Normal duodenal bulb and second portion of the duodenum. No GI f/u scheduled yet but planned for Jun / Jul. Will re-visit zoledronic acid on f/u pending clinical course and GI input. Assessment & Plan (12/13/2023 12:24 PM EDT): Hold next dose zoledronic acid pending findings of upcoming upper endoscopy Assessment & Plan (03/19/2023 4:15 PM EDT): No symptomatic AEs with recent zoledronic acid dose Assessment & Plan (12/09/2022 12:55 PM EDT): Updated labs prior to possibly resuming zoledronic acid; will change to denosumab if renal function does not permit bisphosphonate. Zoledronic acid therapy has been interrupted due to closure of previous rheum practice. Primary osteoarthritis of fi rst carpometacarpal joint of left hand 05/29/2022 Overview (05/29/2022): 72 yo female with Osteoarthritis of the hands Increased pain at the left first CMC joint-injection performed today -please see procedure note -will refer to ortho hand surgeon for consult as pt is considering surgery. CMC arthroplasty on the right ~ 15 yrs ago was very helpful Assessment & Plan (05/29/2022 12:44 PM EDT): XR confirmed severe Osteoarthritis of the hands Increased pain at the left first CMC joint-injection performed today -please see procedure note -will refer to ortho hand surgeon for consult as pt is considering surgery. CMC arthroplasty on the right ~ 15 yrs ago was very helpful Seronegative rheumatoid arthritis 04/04/2022 Overview (08/28/2024): Seronegative rheumatoid arthritis; stopped etanercept and methotrexate prior to 2004 due to concern for AEs - 2 siblings with lymphoma Etanercept not effective per patient report RF and anti-CCP both neg 01/2022 Plain films bl hands 01/2022 - PIP and DIP involvement favor severe OA > rheumatoid arthritis Dc leflunomide 11/2022; resume 08/2024 Dc hydroxychloroquine 05/2024 due to e/o maculopathy; no significant symptomatic worsening as of 08/28/24 Assessment & Plan (04/30/2025 3:56 PM EDT): Persistence of 2 to 3 hours morning stiffness with continued leflunomide; significant component of comorbid noninflammatory pain, especially involving thoracic spine. No clinical evidence concerning for extra articular disease. Assessment & Plan (08/28/2024 2:50 PM EST): Trial of resumed leflunomide; updated inflammatory markers and repeat rheumatoid arthritis serologies with next routine labs. Possible MRI of one hand pending clinical response to leflunomide as well as lab findings. AM stiffness of peripheral joints 2-3 hrs in duration but noted decrease in generalized achiness since duloxetine start, which is c/w co-morbid non-inflammatory pain. Assessment & Plan (04/18/2024 1:36 PM EDT): Patient-reported episodic worsening of generalized joint pain that occurs every 4 wks but is not associated with systemic or other extra-articular sxs; obtain updated inflammatory markers during next episode. Hold leflunomide re-trial as below; ok for continued hydroxychloroquine. Assessment & Plan (12/13/2023 12:26 PM EDT): Clinical picture not clearly c/w with rheumatoid arthritis though severity and extent of OA does raise question of underlying inflammatory arthritis resulting in secondary OA. Will continue hydroxychloroquine +/- add back leflunomide or biologic DMARD pending clinical course as well as timeline for possible KIM. Assessment & Plan (08/13/2023 12:50 PM EST): No clear symptomatic worsening off leflunomide since 11/2022; doubt accuracy of rheumatoid arthritis dx Assessment & Plan (12/09/2022 12:53 PM EDT): Plain films hands 01/2022 reviewed and findings detailed above; ? benefit of continued leflunomide. Assessment & Plan (05/29/2022 12:36 PM EDT): 72 yo female with long hx of RA Previously treated with Enbrel and MTX, stopped due to fear of potential side effects Currently on Arava and Plaquenil with good control of disease. ASIM CRP normal XR hamd : no erosions Continue current tx Eye exams UTD on Plaquenil Labs every 6-8 weeks on Arava Assessment & Plan (04/04/2022 8:52 AM EDT): 72 yo female with long hx of RA Previously treated with Enbrel and MTX, stopped due to fear of potential side effects Currently on Arava and Plaquenil with good control of disease. ASIM CRP normal Continue current tx Eye exam pendng on Plaquenil Labs every 6-8 weeks on Arava Osteoarthritis of thoracic spine 04/04/2022 Overview (04/04/2022): Long hx of pain in thoracic spine with hx of scoliosis and OP compression fractures Pain due to chronic degenerative changes Partial improvement with Cymbalta 20 mg q hs Increase dose to 20 mg BID Potential side effects of Cymbalta/Duloxetine were discussed with pt which include but are not limited to : HAs, blurred vision, insomnia or sedation, weight gain, dry mouth, sweating, constipation, nausea Assessment & Plan (05/29/2022 12:48 PM EDT): Long hx of pain in thoracic spine with hx of scoliosis and OP compression fractures Pain due to chronic degenerative changes Partial improvement with Cymbalta 20 mg q hs Increase dose to 20 mg BID-pt agrees and will call for any AE Potential side effects of Cymbalta/Duloxetineinclude but are not limited to : HAs, blurred vision, insomnia or sedation, weight gain, dry mouth, sweating, constipation, nausea Assessment & Plan (04/04/2022 8:59 AM EDT): Long hx of pain in thoracic spine with hx of scoliosis and OP compression fractures Pain due to chronic degenerative changes Partial improvement with Cymbalta 20 mg q hs Increase dose to 20 mg BID Potential side effects of Cymbalta/Duloxetine were discussed with pt which include but are not limited to : HAs, blurred vision, insomnia or sedation, weight gain, dry mouth, sweating, constipation, nausea Stage 3 chronic kidney disease 08/31/2019 Gastroesophageal reflux disease 04/14/2018 Essential hypertension 11/06/2016 Hyperlipidemia 02/22/2009 Resolved Problems Problem Noted Date Diagnosed Date Resolved Date Arthritis of right hip 01/11/202407/28 Assessment & Plan (04/18/2024 1:33 PM EDT): KIM planned 06/2024 Encounters Date Type Department Care Team Description 07/24/2025 Transcribe Orders [facility] [address] [facility] [address], [address] [place] [address] Michelle Marshall MD Left-sided chest pain (Primary Dx) 05/15/2025 10:33 AM EDT - 05/15/2025 11:59 PM EDT Hospital Encounter [facility] [address] [place] [id number] Connie Crabtree PA Discharge Disposition: Home or Self Care 05/15/2025 Transcribe Orders [facility] [address] [place] [id number] Connie Crabtree PA Helicobacter pylori infection (Primary Dx) 05/14/2025 11:39 AM EDT - 05/14/2025 11:59 PM EDT Hospital Encounter [facility] [address] [address] Raina Brenard MD, MPH Discharge Disposition: Home or Self Care from Last 3 Months Family History Medical History Relation Comments Breast cancer Maternal Aunt Heart disease Maternal Grandfather Leukemia Maternal Grandmother Arthritis Mother Cancer Mother Colon cancer Mother Hypertension Mother Ovarian cancer Niece Cancer Sister Relation Status Comments Maternal Aunt Maternal Grandfather Maternal Grandmother Mother Niece Sister Social History Tobacco Use Types Packs/Day Years Used Date Smoking Tobacco: Former Cigarettes 0 09/27/1967 - 09/27/1969 Smokeless Tobacco: Never Tobacco Cessation:Counseling Given: Not Answered Comments:former 40 years ago Alcohol Use Standard Drinks/Week Comments Not Currently 0 (1 standard drink = 0.6 oz pur e alcohol) Home Health Assessment: Transportation Answer Date Recorded Lack of Transportation (Medical) No 08/15/2024 Lack of Transportation (Non-Medical) No 08/15/2024 Patient Unable or Declines to Respond No 08/15/2024 Education Answer Date Recorded Are you interested [...] as food, clothing, or medical care? No 02/23/2025 In the past 12 months have y ou been in a relationship with a person who hurts, threatens, or tries to control you? No 02/23/2025 Are you denied basic needs s uch as food, clothing, or medical care? No 02/23/2025 In the past 12 months have y ou been in a relationship with a person who hurts, threatens, or tries to control you? No 02/23/2025 Comments No Sex and Gender Information Value Date Recorded Sex Assigned at Female 06/10/2018 6:55 PM EDT Legal Sex Female 10:04 PM EDT Gender Identity Female 06/10/2018 6:55 PM EDT Sexual Orientation Straight 06/10/2018 6: 55 PM EDT Last Filed Vital Signs Vital Sign Reading Time Taken Comments Blood Pressure 130/78 04/30/2025 12:54 PM EDT Pulse 100 04/30/2025 12:54 PM EDT Temperature 36.2 C (97.2 F) 02/27/2025 1:07 PM EDT Respiratory Rate 20 02/27/2025 1:22 PM EDT Oxygen Saturation 98% 04/30/2025 12:54 PM EDT Inhaled Oxygen Concentration - - Weight 63 kg (139 lb) 04/30/2025 12:54 PM EDT Height 162.6 cm (5' 4.02 ) 04/30/2025 12:54 PM E DT Body Mass Index 23.85 04/30/2025 12:54 PM EDT Plan of Treatment Upcoming Encounters Date Type Department Care Team (Late st Contact Info) Description 08/07/2025 8:15 AM EST Office Visit [facility] [address] Floor, [address] [place] [address] Storm Scales DO [address] [facility] [address] [place] [address] [email or web address] 08/22/2025 3:15 PM EST Office Visit [facility] [address] [place] [address] Unknown, Unknown, Connie Garrido, ERIK [address] [address] 09/04/2025 11:10 AM EST Office Visit [facility] [address] [place] [address] Raina Bernard MD, MPH [address] [facility], [address] [place] [address] Health Maintenance Due Date Last Done Comments TSH LEVEL 1949 DEPRESSION SCREENING 1961 RSV VACCINE (1 - 1-dose 75+ series) 2024 INFLUENZA VACCINE (#1) 2025 , 06/29/2023, 07/12/2022, Additional history exists COVID-19 VACCINE ( season) 2025 07/03/2024, 06/29/2023, 07/11/2022, Additional history exists BLOOD PRESSURE 10/31/2025 04/30/2025 SMOKING Hx and SMOKELESS TOBACCO SCREENING 02/27/2026 02/27/2025 LIPID PANEL 12/03/2026 12/03/2021, 12/31/2020 Adult Td,Tdap Booster 05/16/2030 05/16/2020, 010 PNEUMOCOCCAL VACCINES (50+ years) Completed 06/15/2016, 03/22/2015, 06/03/2010 ZOSTER VACCINES Completed 11/07/2020, 08/17/2020 HEPATITIS C SCREENING Completed 01/26/2022, 022 OSTEOPOROSIS SCREENING INITIAL (ONE-TIME) Completed 05/25/2022 HEPATITIS A VACCINES Aged Out No long er eligible based on patient's age to complete this topic HIB VACCINES Aged Out No longer eligi ble based on patient's age to complete this topic MENINGOCOCCAL VACCINES (ACWY) Aged Out No longer eligible based on patient's age to complete this topic MENINGOCOCCAL VACCINES (B) Aged Out N o longer eligible based on patient's age to complete this topic Medical Devices Implanted Type Area Bore Mill Operator Device Identifier Shelf Expiration Date Model / Serial / Lot Zeus Zeus Spine Lumbar Description:4 spinal surgeri es with lots of hardwarre Cervical And Lumbar Fushions Ohlman Suture Size 0 Needleos2 [id number] Arthroscopy Quick Double Arm Mini - [id number] Implanted:Qty: 1 on 09/09/2022 by Susan Jones MD at [facility] Left: Hand [employer] 07/27/2026 [id number] / / [id number] Hip Stem 11mm Femoral Echo Fx Mchenry Chromium - [id number] Implanted:Qty: 1 on 07/26/2024 by Estuardo Sanabria MD at [facility] Right: Femur [employer] 01/09/2034 [id number] / / [id number] Hip Liner [id number] Acetabular Dm Longevity - [id number] Implanted:Qty: 1 on 07/26/2024 by Estuardo Sanabria MD at [facility] Right: Hip [employer]AN [employer] 08/24/2027 [id number] / / [id number] Hip 28mm Bio Component Modular Cocr Standard 05 - [id number] Implanted:Qty: 1 on 07/26/2024 by Estuardo Sanabria MD at [facility] Right: Hip [employer] 03/13/2034 [id number] / / [id number] Kit Preparation Cement Femoral Bone Quick Use Bx/1ea - [id number] Implanted:Qty: 1 on 07/26/2024 by Estuardo Sanabria MD at [facility] Right: Femur [employer] 03/27/2029 [id number] 0 / / [id number] Description:Small plug impla nted Acetabular Shell 54mm Size F G7 Porous Plasma [place] Limited Hole - [id number] Implanted:Qty: 1 on 07/26/2024 by Estuardo Sanabria MD at [facility] Right: Acetabulum [employer] 03/27/2034 [id number] / / [id number] Cement Bone 1x40 Standard - [id number] Implanted:Qty: 1 on 07/26/2024 by Estuardo Sanabria MD at [facility] Right: Femur [employer] 09/26/2026 [id number] / / [id number] Cement Bone 1x40 Standard - [id number] Implanted:Qty: 1 on 07/26/2024 by Estuardo Sanabria MD at [facility] Right: Femur [employer] 09/26/2026 [id number] / / [id number] Hip Centralizer 14mm Implant Cemented Versys 16b Bx/1ea - [id number] Implanted:Qty: 1 on 07/26/2024 by Estuardo Sanabria MD at [facility] Right: Femur [employer] 04/11/2028 [id number] / / [id number] Acetabular Liner 44mm Component Dual Mobility G7 - [id number] Implanted:Qty: 1 on 07/26/2024 by Estuardo Sanabria MD at [facility] Right: Hip [employer] 12/16/2033 [id number] / / [id number] Procedures Procedure Name Priority Date/Time Associated Diagnosis Comments H PYLORI UREA BREATH TEST Routine 05/15/2025 10:53 AM EDT Helicobacter pylori infection CBC Routine 05/14/2025 11:40 AM EDT Encounter for monitoring leflunomide therapy Seronegative rheumatoid arthritis COMPREHENSIVE METABOLIC PANEL (CMP) Routine 05/14/2025 11:40 AM EDT Encounter for monitoring leflunomide therapy SEDIMENTATION RATE (ESR) Routine 05/14/2025 11:40 AM EDT Seronegative rheumatoid arthritis BD DXA HIP AND FOREARM Routine 11:09 AM EDT Rheumatoid arthritis involving right shoulder with positive rheumatoid factor HEPATITIS C ANTIBODY, QUALITATIVE Routine 01/26/2022 12:24 PM EDT Need for hepatitis C screening test from Last 3 Months or Most Recently Relevant to Health Maintenance Results * H PYLORI UREA BREATH TEST (05/15/2025 10:53 AM EDT) H.PYLORI C UREA BRTH Negative Negative [facility] Comment: (NOTE) Result indicates the absence of current Helicobacter pylori infection. Blood 05/15/2025 10:5 3 AM EDT 05/15/2025 11:37 AM EDT us Connie LEVY LAB BLOOD ORDERABLES Final Result [facility] [address] [place] [address] * Comprehensive metabolic panel (05/14/2025 11:40 AM EDT) SODIUM 143 133 - 146 mmol/L [facility] POTASSIUM 4.2 3.3 - 5.1 mmol/L [facility] CHLORIDE 108 96 - 108 mmol/L [facility] CO2 23 21 - 35 mmol/L [facility] BUN 19 6 - 19 mg/dL [facility] CREATININE 0.90 0.5 - 1.5 mg/dL [facility] GLUCOSE 79 70 - 99 mg/dL [facility] ALBUMIN 4.2 3.9 - 4.8 g/dL [facility] TOTAL PROTEIN 7.3 6.5 - 8.0 g/dL [facility] CALCIUM 9.0 8.4 - 10.3 mg/dL [facility] ALKALINE PHOSPHATASE 64 39 - 117 U/L [facility] TOTAL BILIRUBIN 0.4 0.0 - 1.2 mg/dL [facility] AST 20 0 - 37 U/L [facility] ALT 12 0 - 40 U/L [facility] GLOBULIN 3.1 1 - 4.8 g/dL [facility] EGFR 66 >59 mL/min/1.7 3m2 [facility] Comment:Estimated glomerular filtration rate calculated using the CKD-EPI refit equation. ANION GAP 16 10 - 20 mmol/L [facility] Blood 05/14/2025 11:4 0 AM EDT 05/14/2025 11:44 AM EDT Raina Bernard MD, MPH LAB BLOOD BKR ORDERABLES Final Result [address] [address] * Sedimentation rate (ESR) (05/14/2025 11:40 AM EDT) ESR 21 0 - 30 mm/h [facility] Blood 05/14/2025 11:4 0 AM EDT 05/14/2025 11:44 AM EDT Raina Bernard MD, MPH LAB BLOOD BKR ORDERABLES Final Result Performing Organization Address City/[facility]/ZIP Co de Phone Number [address] [address] * (ABNORMAL) CBC (05/14/2025 11:40 AM EDT) WBC 7.68 4.00 - 11.00 K/uL [facility] RBC 4.72 4.00 - 5.20 M/uL [facility] HGB 13.5 12.0 - 16.0 g/dL [facility] HCT 42.9 36.0 - 46.0 % [facility] PLT 397 150 - 450 K/uL [facility] MCV 90.9 80.0 - 100.0 fL [facility] MCH 28.6 27.0 - 31.0 pg [facility] MCHC 31.5(L) 32.0 - 36.0 g/dL [facility] RDW 14.2 11.5 - 14.5 % [facility] MPV 10.9 8.4 - 12.0 fL [facility] NRBC 0.00 0.00 /100 WBCs [facility] ABSOLUTE NRBC 0.00 0.00 K/uL [facility] Blood 05/14/2025 11:4 0 AM EDT 05/14/2025 11:44 AM EDT us Raina Bernard MD, MPH LAB BLOOD BKR ORDERABLES Final Result [facility] [address] [place] [address] * BD DXA HIP AND FOREARM (05/25/2022 11:09 AM EDT) Anatomical Region Laterality Modality Bone Density Bone Density 05/25/2022 12:4 7 PM EDT Impressions 05/25/2022 12:48 PM EDT Osteopenia Reference Information: The T-score is the number of standard deviations above or below the standard which is normal for young adults at their peak bone mineral density. The World Health Organization (WHO) interprets the T-scores as follows: Above -1 Normal bone density Between -1 and -2.5Osteopenia Equal to / or below -2.5Osteoporosis As a practical clinical guideline, osteopenia may be graded as follows: Mild -1 through -1.5 Moderate -1.6 through -2.0 Severe-2.1 through -2.4 References: 1. NIH Osteoporosis and Related Bone Diseases http://www.osteo.org 2. International Society for Clinical Densitometry http://www.iscd.org 3. National Osteoporosis Foundation http://www.nof.org Narrative 05/25/2022 12:48 PM EDT STUDY: DUAL ENERGY X-RAY ABSORPTIOMETRY / DXA REASON FOR EXAM: Female, 72 years old. TECHNIQUE: Bone Mineral Density (BMD) measurements of the left forearm and femoral necks were obtained. COMPARISON: None. FINDINGS: Total left forearm T score: -2.3. This corresponds to osteopenia Right femoral neck T score: -1.3. This corresponds to osteopenia Right total hip T score: -1.8. This corresponds to osteopenia FRAX score: 10 year risk of major osteoporotic fracture 9.4%, 10 year risk of hip fracture 1.6% Left femoral neck T score: -2.4. This corresponds to osteopenia Left total hip T score: -2. This corresponds to osteopenia FRAX score: 10 year risk of major osteoporotic fracture 14%, 10 year risk of hip fracture 3.8% Procedure Note Rachel Diaz MD - 05/25/2022 STUDY: DUAL ENERGY X-RAY ABSORPTIOMETRY / DXA REASON FOR EXAM: Female, 72 years old. TECHNIQUE: Bone Mineral Density (BMD) measurements of the left forearmand femoral necks were obtained. COMPARISON: None. FINDINGS: Total left forearm T score: -2.3. This corresponds to osteopenia Right femoral neck T score: -1.3. This corresponds to osteopenia Right total hip T score: -1.8. This corresponds to osteopenia FRAX score: 10 year risk of major osteoporotic fracture 9.4%, 10 year riskof hip fracture 1.6% Left femoral neck T score: -2.4. This corresponds to osteopenia Left total hip T score: -2. This corresponds to osteopenia FRAX score: 10 year risk of major osteoporotic fracture 14%, 10 year riskof hip fracture 3.8% IMPRESSION: Osteopenia Reference Information: The T-score is the number of standard deviations above or below thestandard which is normal for young adults at their peak bone mineraldensity. The World Health Organization (WHO) interprets the T-scores asfollows: Above -1 Normal bone density Between -1 and -2.5Osteopenia Equal to / or below -2.5Osteoporosis As a practical clinical guideline, osteopenia may be graded as follows: Mild -1 through -1.5 Moderate -1.6 through -2.0 Severe-2.1 through -2.4 References: 1. NIH Osteoporosis and Related Bone Diseases http://www.osteo.org 2. International Society for Clinical Densitometry http://www.iscd.org 3. National Osteoporosis Foundation http://www.nof.org us Alfredo Lea MD IMG BD BONE DENSI TY DEXA Final Result * Hepatitis C antibody, qualitative (01/26/2022 12:24 PM EDT) HCV NON-REACTIV E NON-REACTI VE [facility] Blood 01/26/2022 12:2 4 PM EDT 01/26/2022 12:40 PM EDT Alfredo Lea MD LAB BLOOD BKR ORD ERABLES Final Result [facility] [address] [place] [address] from Last 3 Months or Most Recently Relevant to Health Maintenance [place] [address] [place] [address] FAMILY [employer] PLAN HEALTH PLAN PLAN HEALTH PLAN PLAN PLAN HEALTH PLAN HEALTH PLAN HEALTH PLAN Advance Directives For more information, please contact: [phone] (9AM - 5PM [facility], Wednesday-Wednesday) * Full Code (Latest Code Status on File) Date Activated Date Inactivated Comments 07/26/2024 5:29 PM Question Answer Comments Code Status Confirmed With: Patient * Full Code Date Activated Date Inactivated Comments 07/26/2024 9:05 AM 07/26/2024 5:29 PM Question Answer Comments Code Status Confirmed With: Patient Care Teams Clinical Nursing Intern Relationship Specialty Start Date End Date Michelle Marshall MD [address] [place] [address] [email or web address] PCP - General Family Medicine 08/18/23 Additional Source Comments The information contained in this document represents components of the legal health record. It is not the complete legal health record.[facility]
--- OUTSIDE RECORDS SUMMARY | 2025-08-03 13:00 | XMS_ITS | Patient Health Record ---
Author Organization [facility] Address [address] [place] [address] Care Team Providers Care Laundry Operator Name Role Phone Christine Cruz Primary Care Provider Unavailabl e Allergies Allergen (clinical drug ingredient) Drug/Non Drug Allergy documented on EMR Reaction Allergy Type Onset Date Status aspirin Aspirin Unknown Drug Allergy Active Non-steroidal anti-inflammatory agent (FN) NSAIDs Unknown Drug Allergy Active Reason For Referral No Information Medications Medication SIG (Take, Route, Frequency, Duration) Notes Start Date End Date Status Lovastatin 10 MG 1 tablet with the evening meal Orally Once a day Active Leflunomide 20 MG 1 tablet Orally Once a day Active hydrOXYzine HCl 25 MG 1 tablet as needed Orally every 8 hrs; Duration: 10 days 10/29/2020 Active Acetaminophen 500 MG 1 tablet as needed Orally every 6 hrs; Duration: 30 days 10/29/2020 Active oxyCODONE HCl 5 MG 1 tablet as needed Orally every 6 hrs; Duration: 5 days 10/29/2020 Active amLODIPine Besylate 2.5 MG 1 tablet Oral ly Once a day Active Hydroxychloroquine Sulfate 2 00 MG as directed Orally daily Active Cyclobenzaprine HCl 5 MG 1 tablet at bed time as needed Orally Once a day Active EPINEPHrine 0.3 MG/0.3ML as directed Injection Active Albuterol Sulfate 108 (90 Base) MCG/ACT 1 puff as needed Inhalation every 6 hrs Active Levothyroxine Sodium 50 MCG 1 tablet in the morning on an empty stomach Orally Once a day Active Almotriptan Malate 12.5 MG as directed Orally Active Problems Problem Type SNOMED Code ICD Code Onset Dates Problem Status W/U Status Risk Notes Problem Acquired hammer toe of right foot ([id number] 105) Hammer toe of right foot (M20.41) Active confirmed Plan Of Treatment Pending Test Test Name Order Date X ray : Foot, right 3v 12/03/2020 X ray : Foot, right 3v 12/31/2020 Insurance Providers Payer Name Payer Address Payer Phone Subscriber Number Group Number Insured Name Patient Relationship to Insured Coverage Start Date Coverage End Date [facility] [place] [phone] [id number] Yohana Machuca Self - patient is the insured Medical (General) History Medical History History ICD Code Chronic kidney disease, stage 3 unspecif ied N18.30 Osteomyelitis of vertebra, thoracic jillian on M46.24 Gastro-esophageal reflux disease without esophagitis K21.9 Primary osteoarthritis, right hand M19.0 41 Primary osteoarthritis, left hand M19.04 2 Essential hypertension I10 Spinal stenosis, thoracic region M48.04 Wedge compression fracture o f unspecified thoracic vertebra, initial encounter for closed fracture S22.000A Migraine, unspecified, not intractable, without status migrainosus G43.909 Family history of malignant neoplasm of digestive organs Z80.0 Family history of colonic polyps Z83.71 Spondylosis without myelopathy or radicu lopathy, lumbar region M47.816 Age-related osteoporosis without current pathological fracture M81.0 Rheumatoid arthritis, unspecified M06.9 Hypothyroidism, unspecified E03.9 Spondylosis without myelopathy or radicu lopathy, cervical region M47.812 Hyperlipidemia, unspecified E78.5 Surgical History Surgery Date(Month/Year) colonoscopy hand surgery neck surgery total hysterectomy with BSO lumbar spine fusion breast biopsy
--- OUTSIDE RECORDS SUMMARY | 2025-08-03 13:00 | XMS_ITS | Clinical Summary ---
Author Organization [facility] it[facility] Address [address] [place] [address] Care Team Providers Care Clearance Diver Name Role Phone Michelle Marshall MD Primary Care Provider [phone] Surgical History Surgery Date Site/Laterality Comments HYSTERECTOMY PROCEDURE: HISTORICAL TOTAL HYSTERECTOMY WITH BSO NECK SURGERY PROCEDURE: HISTORICAL NECK SURGERY; COMMENT: partial thyroidectomy, benign HAND SURGERY PROCEDURE: HISTORICAL HAND SURGERY; COMMENT: thumb arthropalsty BREAST BIOPSY PROCEDURE: WA BIOPSY BREAST OPEN INCISIONAL; COMMENT: Benign OTHER SURGICAL HISTORY 2008 PROCEDURE: LUMBAR SPINE FUSION, LAT TRANSVERSE; COMMENT: L4-L5 COLONOSCOPY 11/04/12 [facility]ol PROCEDURE: HISTORICAL COLONOSCOPY; COMMENT: normal; repeat in 5 yrs under propofol Medical History Medical History Date Comments RA (rheumatoid arthritis) (C [facility] V24, [facility] V28) DX:RA (rheumatoid arthritis) ([facility]) Hypothyroid DX:Hypothyroid Hyperlipidemia DX:Hyperlipidemi a 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 D X:Osteoarthritis of lumbar spine Osteopenia 11/26/2009 DX:Osteopenia Fracture of foot 06/03/2010 DX:Fracture of foot Family history of breast cancer DX:Family history of breast cancer; COMMENT: Pt MyRisk negative 02/2015; low risk Migraine DX:Migraine Thoracic compression fractur e ([facility] V24, [facility] V28) 05/18/2016 DX:Thoracic compression fra cture ([facility]); COMMENT: T9, T10, vertebroplasty Thoracic spinal stenosis 06/15/2016 DX:Thor acic spinal stenosis Osteomyelitis of thoracic sp ine (CMS/[facility] V24, [facility] V28) 07/21/2018 DX:Osteomyelitis of thoraci c spine (HCC) Essential hypertension DX:Essent ial hypertension Family history of cardiovasc ular disease DX:Family history of cardiov ascular disease Family History Medical History Relation Name Comments Breast cancer Aunt maternal aunt; unilateral Other: non hodgkins lymphoma Brother Other: history unknown Father Other: heart disease Maternal Grandfather - 78 Leukemia Maternal Grandmother ag e 76 Colon cancer Mother hypertension, a rthritis Leukemia Other 1 maternal 1st co usin- at 12 Other: ovarian cancer Other 2 matern al 1st cousin Other: hodgkins disease Sister 1 cirr hosis Diabetes Sister 2 cirrhosis Relation Name Status Comments Aunt Brother Father (Age ?) ? Maternal Grandfather Maternal Grandmother Mother Alive Other 1 Other 2 Sister 1 Sister 2 Social History Tobacco Use Types Packs/Day Years Used Date Smoking Tobacco: Former Cigarettes Smokeless Tobacco: Never Alcohol Use Standard Drinks/Week Comments No 0 (1 standard drink = 0.6 oz pur e alcohol) Comments Unknown Sex and Gender Information Value Date Recorded Sex Assigned at Not on file Legal Sex Female 6:55 AM EST Gender Identity Not on file Sexual Orientation Not on file Obstetrics History Last Filed Vital Signs Vital Sign Reading Time Taken Comments Blood Pressure 138/80 06/03/2023 12:47 PM EDT Sitting R Arm Pulse 90 06/03/2023 12:47 PM EDT Temperature - - Respiratory Rate - - Oxygen Saturation - - Inhaled Oxygen Concentration - - Weight 63.3 kg (139 lb 9.6 oz) 06/03/2023 12:47 PM EDT Height 165.1 cm (5' 5 ) 02/18/2023 10:5 1 AM EDT Body Mass Index 23.23 02/18/2023 10:51 AM EDT Plan of Treatment Health Maintenance Due Date Last Done Comments Cholesterol Screening (Lipid Panel) 09/05/2022 Falls Risk Assessment 09/05/2022 Hepatitis C Screening 09/05/2022 Social Influencers of Health Screening 09/05/2022 Hypertension/CHF/CAD Annual BMP Blood Test 09/06/2022 RSV Immunization Adult Patients (1 - 1-dose 75+ series) 2024 Depression Screening 09/27/2024 COVID-19 Vaccine ( season) 2025 12/31/2021, 07/23/2021, 01/10/2021, Additional history exists Influenza Vaccine (#1) 2025 , 06/19/2019, 06/10/2017, Additional history exists Osteoporosis Screening (Bone Density Screening) 10/17/2029 10/17/2019, 04/08/2017 DTaP,Tdap,and Td Vaccines (3 - Td or Tdap) 05/16/2030 05/16/2020, 02/07/2010 Pneumococcal Vaccine: 50+ Years Completed 06/15/2016, 03/22/2015, 06/03/2010 Zoster Vaccines Completed 11/07/2020, 08/17/2020 HIB Vaccines Aged Out No longer eligi ble based on patient's age to complete this topic HPV Vaccines Aged Out No longer eligi ble based on patient's age to complete this topic Hepatitis A Vaccines Aged Out No long er eligible based on patient's age to complete this topic Hepatitis B Vaccines Aged Out No long er eligible based on patient's age to complete this topic IPV Vaccines Aged Out No longer eligi ble based on patient's age to complete this topic MMR Vaccines Aged Out No longer eligi ble based on patient's age to complete this topic Meningococcal ACWY Vaccine Aged Out N o longer eligible based on patient's age to complete this topic Meningococcal B Vaccine Aged Out No l onger eligible based on patient's age to complete this topic RSV Immunization Patients Under 20 months Aged Out No longer eligible based on patient's age to complete this topic Varicella Vaccines Aged Out No longer eligible based on patient's age to complete this topic Procedures Procedure Name Priority Date/Time Associated Diagnosis Comments DXA BONE DENSITY STUDY 1+ SITS AXIAL SKEL Routine 10/17/2019 10:40 AM EST Age-related osteoporosis without current pathological fracture from Last 3 Months or Most Recently Relevant to Health Maintenance Results * DXA BONE DENSITY STUDY 1+ SITS AXIAL SKEL (10/17/2019 10:40 AM EST) Anatomical Region Laterality Modality Bone Densitometr y 08/10/2019 8:38 AM EST Narrative 10/17/2019 1:10 PM EST BONE DENSITY Left wrist T-score is -2.5 (SD relative to 20-29 y/o adult) Z-score is -0.4 (SD relative to age matched peers) This is consistent with osteoporosis by criteria defined by the WHO. Left Hip T-score is -2.4 Z-score is -0.5 This is consistent with osteopenia by criteria defined by the WHO. Comparison exam(s): significant decrease in bone density of hip when compared to most recent bone density examination Confidence level is +/-95%. Impression: Based on the World Health Organization criteria, Yohana Oates should be classified as having peripheral osteoporosis. The [facility] Department of Internal Medicine recommends using National Osteoporosis Foundation (NOF) guidelines in treatment decisions related to osteoporosis. NOF guidelines suggest considering treatment for postmenopausal women and men aged 50 or older presenting with the following: History of hip or vertebral fracture. T-score less than or equal to -2.5 (DXA) at the femoral neck, total hip, or spine, after appropriate evaluation to exclude secondary causes. Low bone mass (T-score between -1.0 and -2.5 at the femoral neck or spine) AND a 10-year probability of a hip fracture greater than or equal to 3% OR a 10-year probability of a major osteoporosis-related fracture greater than or equal to 20% based on the [place]-adapted WHO algorithm Please note that all treatment decisions require clinical judgment and consideration of individual patient factors, including patient preferences, co-morbidities, previous drug use, risk factors not captured in the FRAX model (e.g., frailty, falls, vitamin D deficiency, increased bone turnover, interval significant decline in bone density) and possible under- or over-estimation of fracture risk by FRAX. Procedure Note Nicholas Birmingham - 09/15/2022 BONE DENSITY Left wrist T-score is -2.5 (SD relative to 20-29 y/o adult) Z-score is -0.4 (SD relative to age matched peers) This is consistent with osteoporosis by criteria defined by the WHO. Left Hip T-score is -2.4 Z-score is -0.5 This is consistent with osteopenia by criteria defined by the WHO. Comparison exam(s): significant decrease in bone density of hip whencompared to most recent bone density examination Confidence level is +/-95%. Impression: Based on the World Health Organization criteria, Yohana Oatesshould be classified as having peripheral osteoporosis. The [facility] Department of Internal Medicine recommendsusing National Osteoporosis Foundation (NOF) guidelines in treatmentdecisions related to osteoporosis. NOF guidelines suggest consideringtreatment for postmenopausal women and men aged 50 or older presentingwith the following: History of hip or vertebral fracture. T-score less than or equal to -2.5 (DXA) at the femoral neck, total hip,or spine, after appropriate evaluation to exclude secondary causes. Low bone mass (T-score between -1.0 and -2.5 at the femoral neck or spine)AND a 10-year probability of a hip fracture greater than or equal to 3% ORa 10-year probability of a major osteoporosis-related fracture greaterthan or equal to 20% based on the [place]-adapted WHO algorithm Please note that all treatment decisions require clinical judgment andconsideration of individual patient factors, including patientpreferences, co-morbidities, previous drug use, risk factors not capturedin the FRAX model (e.g., frailty, falls, vitamin D deficiency, increasedbone turnover, interval significant decline in bone density) and possibleunder- or over-estimation of fracture risk by FRAX. Dakota LEVY IMG DXA PROCEDURES Final Re sult from Last 3 Months or Most Recently Relevant to Health Maintenance Care Teams Clearance Diver Relationship Specialty Start Date End Date Michelle Marshall MD [address] [place] [phone] PCP - General 02/18/23
--- OUTSIDE RECORDS SUMMARY | 2025-08-03 13:00 | XMS_ITS | Encounter Summary ---
Author Organization [facility] Address [address] [place] [phone] Phone Care Team Providers Care Pants Maker Name Role Phone Christine Cruz MD Primary Care Provider Michelle Marshall MD Primary Care Provider [phone] Michelle Marshall MD Primary Care Provider [phone] Encounter Details Date Type Department Care Team (Late Contact Info) Description 05/05/2022 Transcribe Orders Virtual Department [address] [place] [address] Christine Cruz MD [address] [place] [address] Encounter for screening mammogram for malignant neoplasm of breast (Primary Dx) Social History Tobacco Use Types Packs/Day Years Used Date Smoking Tobacco: Former Smokeless Tobacco: Never Comments:former 40 years ago [...] Description 08/07/2025 8:15 AM EST Office Visit [facility] [address], [address] [place] [address] Storm Scales, [address] [facility] [address] [facility] [address] [place] [address] [email or web address] 08/22/2025 3:15 PM EST Office Visit [facility] [address] [place] [address] Unknown, Unknown, Connie Garrido PA-C [address] [address] 09/04/2025 11:10 AM EST Office Visit [facility] Rheumatology [address] [place] [address] Raina Bernard MD, MPH [address], [address] [place] [address] documented as of this encounter Results * BI MAMMOGRAM SCREENING WITH TOMOSYNTHESIS WITH CAD (BILATERAL) (06/08/2022 12:50 PM EDT) Anatomical Region Laterality Modality Breast Left, Breast Right, Breast Bilateral Bila teral Mammography 06/08/2022 5:30 PM EDT Impressions 06/08/2022 5:38 PM EDT BILATERAL BREASTS: Benign, no specific mammographic evidence of malignancy. Normal interval follow-up is recommended in 12 months. BI-RADS: BI-RADS CATEGORY: 2 - Benign finding. DENSITY: The breast tissue is extremely dense, which lowers the sensitivity of mammography. Narrative 06/08/2022 5:38 PM EDT STUDY: Bilateral screening mammography with tomosynthesis and CAD TECHNIQUE: Bilateral full-field digital screening mammography is obtained and read in conjunction with computer-aided detection. Tomosynthesis as well as 2-D C view imaging were obtained. COMPARISON: Comparison made to multiple prior, most recent June 04, 2021, and most remote October 01, 2010. BREAST COMPOSITION: The breast tissue is extremely dense, which lowers the sensitivity of mammography. RIGHT BREAST: No significant masses, suspicious calcifications or other abnormalities are seen. LEFT BREAST: History of previous excisional biopsy. No significant masses, suspicious calcifications or other abnormalities are seen. Procedure Note Kaela Hernandez MD - 06/08/2022 STUDY: Bilateral screening mammography with tomosynthesis and CAD TECHNIQUE: Bilateral full-field digital screening mammography is obtainedand read in conjunction with computer-aided detection. Tomosynthesis aswell as 2-D C view imaging were obtained. COMPARISON: Comparison made to multiple prior, most recent May, and most remote October 01, 2010. BREAST COMPOSITION: The breast tissue is extremely dense, which lowers thesensitivity of mammography. RIGHT BREAST: No significant masses, suspicious calcifications or otherabnormalities are seen. LEFT BREAST: History of previous excisional biopsy. No significantmasses, suspicious calcifications or other abnormalities are seen. IMPRESSION: BILATERAL BREASTS: Benign, no specific mammographic evidence ofmalignancy. Normal interval follow-up is recommended in 12 months. BI-RADS: BI-RADS CATEGORY: 2 - Benign finding. DENSITY: The breast tissue is extremely dense, which lowers thesensitivity of mammography. Christine Cruz MD IMG MG EXAMS Final Result documented in this encounter Visit Diagnoses Diagnosis Encounter for screening mammogram for malignant neoplasm of breast- Primary Encounter for screening mammogram for malignant neoplasm of breast documented in this encounter Care Teams Pants Maker Relationship Specialty Start Date End Date Christine Cruz MD [address] [place] [phone] PCP - General 07/13/17 08/09/22 Michelle Marshall MD [address] [place] [phone] PCP - General Family Medicine 08/10/22 08/17/23 Michelle Marshall MD [address] [place], [place] [id number] [email or web address] PCP - General Family Medicine 08/18/23 documented as of this encounter Additional Source Comments The information contained in this document represents components of the legal health record. It is not the complete legal health record.[facility]
--- OUTSIDE RECORDS SUMMARY | 2025-08-03 13:00 | XMS_ITS | Encounter Summary ---
Author Organization [facility] Address [address] [place] [phone] Phone Care Team Providers Care Manager Of Distribution Name Role Phone Michelle Marshall MD Primary Care Provider Encounter Details Date Type Department Care Team (Late Contact Info) Description 12/21/2023 Procedure Pass [facility] Endoscopy Admitting Dept Virtual Department [address] [place] [address] Social History Tobacco Use Types Packs/Day Years [...] Description 08/07/2025 8:15 AM EST Office Visit [facility] [address] Floor, [address] [place] [address] Storm Scales DO [address] [place] [address] [email or web address] 08/22/2025 3:15 PM EST Office Visit [facility] [address] [place] [address] Unknown, Unknown, Connie Garrido PA-C [address] [address] 09/04/2025 11:10 AM EST Office Visit [facility] Rheumatology [address] [place] [address] Raina Bernard MD, MPH [address], [address] [place] [address] documented as of this encounter Visit Diagnoses Not on filedocumented in this encounter Care Teams Manager Of Distribution Relationship Specialty Start Date End Date Michelle Marshall MD [address] [place] [phone] PCP - General Family Medicine 08/18/23 documented as of this encounter Additional Source Comments The information contained in this document represents components of the legal health record. It is not the complete legal health record.[facility]
--- OUTSIDE RECORDS SUMMARY | 2025-08-03 13:01 | XMS_ITS | Patient Health Record ---
Author Organization [facility] Address [address] [place] [id number] Care Team Providers Care Ultrasound Tech Name Role Phone RAÚL FLORENCE M.D. Primary Care Provider UnavailShweta Foley Unavailable [phone] Allergies Allergen (clinical drug ingredient) Drug/Non Drug Allergy documented on EMR Reaction Allergy Type Onset Date Status ASA Unknown Drug Allergy Active Non-steroidal anti-inflammatory agent (FN) NSAIDs Unknown Drug Allergy Active Reason For Referral No Information Medications Medication SIG (Take, Route, Frequency, Duration) Notes Start Date End Date Status Cyclobenzaprine HCl 5 MG 1 tablet Orally As needed for muscle spasms Active Hydroxychloroquine Sulfate 200 MG 1 tablet Orally Once a day Active hydrOXYzine HCl 10 MG 1 tablet as needed Orally Up to 3x a day Active Vitamin D 1000 UNIT 1 tablet Orally Once a day Active Leflunomide 20 MG 1 tablet Orally Once a day; Duration: 30 day(s) Active Lovastatin 10 MG 1 tablet with a meal Orally Once a day Active Lidocaine 5 % 1 application as needed Externally Three times a day Active Levothyroxine Sodium 50 MCG 1 tablet in the morning on an empty stomach Orally Once a day [facility]- 08/18/2011 Active EPINEPHrine 0.3 MG/0.3ML as directed Inj ection As needed Active amLODIPine Besylate 5 MG 1 1/2 tablets ( 7.5mg) Orally Once a day Active Almotriptan Malate 12.5 MG 1 tab Orally as needed for h/a Active Albuterol Sulfate 108 (90 Base) MCG/ACT 1 puff as needed Inhalation every 6 hrs 04/28/2021 Active Amitriptyline HCl 10 MG 1 tablet at bedt jayden Orally Once a day; Duration: 30 day(s) Active Calcium 600 MG 1 tablet with meals Orally Twice a day; Duration: 30 day(s) Active Social History Tobacco Use: Social History Observation Description Date Details (start date - stop date) Never Smoker NA - NA Tobacco Use/Smoking Question Answer Notes Are you a nonsmoker Alcohol Screen (Audit-C) Question Answer Notes Did you have a drink containing alcohol in the p ast year? No Points 0 Interpretation Negative Problems Problem Type SNOMED Code ICD Code Onset Dates Problem Status W/U Status Risk Notes Problem Postmenopausal atrophic vaginitis (64771932) Postmenopausal atrophic vaginitis (N95.2) Active confirmed Problem Age-related osteoporosis (867689421) Age-related osteoporosis without current pathological fracture (M81.0) Active confirmed Problem Essential hypertension (99482890) Essential (primary) hypertension (I10) Active confirmed Problem Hypothyroidism (06503329) Hypothyroidism, unspecified (E03.9) Active confirmed Problem Hyperlipidemia (44596326) Hyperlipidemia, unspecified (E78.5) Active confirmed Problem Non-toxic uninodular goiter (721287685) Nontoxic uninodular goiter (241.0) Active confirmed Major Problem Menopausal symptom (57496383) Symptomatic menopausal or female climacteric states (627.2) Active confirmed Major Problem Rheumatoid arthritis (87961773) Rheumatoid arthritis (714.0) Active confirmed Major Plan Of Treatment Pending Test Test Name Order Date DEXA 12/03/2014 MAMMOGRAM, SCREENING 12/03/2014 MAMMOGRAM, SCREENING 04/28/2021 MM Digital Mammo Screening 04/19/2018 MM Digital Mammo Screening 04/28/2021 Insurance Providers Payer Name Payer Address Payer Phone Subscriber Number Group Number Insured Name Patient Relationship to Insured Coverage Start Date Coverage End Date [facility] [address] [place], [place] [id number] KAREN BYRNE Spouse - patient is the spouse of the insured Medical (General) History Medical History History ICD Code Nontoxic single thyroid nodule E04.1 Menopausal and female climacteric states N95.1 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
--- OUTSIDE RECORDS SUMMARY | 2025-08-03 13:01 | XMS_ITS | Encounter Summary ---
Author Organization [facility] Address [address] [place] [address] Phone Care Team Providers Care Glass Sander Belt Name Role Phone Michelle Marshall MD Primary Care Provider [phone] Michelle Marshall MD Primary Care Provider [phone] Encounter Details Date Type Department Care Team (Late st Contact Info) Description 05/28/2023 Procedure Pass [facility], [facility] [address] [place] [address] Social History Tobacco Use Types Packs/Day Years [...] Description 08/07/2025 8:15 AM EST Office Visit [facility] [address] [facility] 3rd Floor, [address] [place] [address] Storm Scales DO 22 [facility] [address] [place] [address] [email or web address] 08/22/2025 3:15 PM EST Office Visit [facility] 10 [place] [address] Unknown, Unknown, Connie Garrido PA-C [address] [address] 09/04/2025 11:10 AM EST Office Visit [facility] Rhe[facility] 22 [place] [address] Raina Bernard MD, MPH [address] [facility], [address] [place] [address] documented as of this encounter Visit Diagnoses Not on filedocumented in this encounter Care Teams Glass Sander Belt Relationship Specialty Start Date End Date Michelle Marshall MD PCP - General Family Medicine 08/10/22 08/17/23 Michelle Marshall MD [address] [place] [address] PCP - General Family Medicine 08/18/23 documented as of this encounter Additional Source Comments The information contained in this document represents components of the legal health record. It is not the complete legal health record.[facility]
--- OUTSIDE RECORDS SUMMARY | 2025-08-03 13:01 | XMS_ITS | Encounter Summary ---
Author Organization [facility] Address [address] [place] [address] Phone Care Team Providers Care Building Services Coordinator Name Role Phone Michelle Marshall MD Primary Care Provider [phone] Encounter Details Date Type Department Care Team ([facility] st Contact Info) Description 02/27/2025 Procedure Pass [facility]oscopy Admitting Dept Virtual Department [address] [place] [address] Social History Tobacco Use Types Packs/Day Years [...] your housing situation today? I have scott sing 07/26/2024 How many times have you move [...] Description 08/07/2025 8:15 AM EST Office Visit [facility] [address] [place] [address] 3rd Floor, [address] [place] [address] Storm Scales DO 22 [facility] [address] [place] [address] [email or web address] 08/22/2025 3:15 PM EST Office Visit [facility] Gastroenterology Clinic 10 [place] [address] Unknown, Unknown, Connie Garrido PA-C [address] [address] [email or web address] 09/04/2025 11:10 AM EST Office Visit [facility] Rheumatology 22 [place] [address] Raina Bernard MD, MPH [address] [facility], [address] [place] [address] [email or web address] documented as of this encounter Visit Diagnoses Not on filedocumented in this encounter Care Teams Building Services Coordinator Relationship Specialty Start Date End Date Michelle Marshall MD [address] [place] [address] [email or web address] PCP - General Family Medicine 08/18/23 documented as of this encounter Additional Source Comments The information contained in this document represents components of the legal health record. It is not the complete legal health record.[facility]
--- OUTSIDE RECORDS SUMMARY | 2025-08-03 13:01 | XMS_ITS | Encounter Summary ---
Author Organization [facility] Address [address] [place] [address] Phone Care Team Providers Care Sport Psychologist Name Role Phone Michelle Marshall MD Primary Care Provider [phone]- [phone] Encounter Details Date Type Department Care Team ([facility] st Contact Info) Description 03/26/2025 Procedure Pass [facility], [address] [address] Social History Tobacco Use Types Packs/Day Years [...] Description 08/07/2025 8:15 AM EST Office Visit [facility] [address] [place] [address] 3rd Floor, [address] [place] [address] Storm Scales DO 22 [facility] [address] [place] [address] [email or web address] 08/22/2025 3:15 PM EST Office Visit [facility]astro[facility] Clinic 10 [place] [address] Unknown, Unknown, Connie Garrido PA-C [address] [address] 09/04/2025 11:10 AM EST Office Visit [facility] Rhe[facility]ology 22 [place] [address] Raina Bernard MD, MPH 22 [facility], [address] [place] [address] [email or web address] documented as of this encounter Visit Diagnoses Not on filedocumented in this encounter Care Teams Sport Psychologist Relationship Specialty Start Date End Date Michelle Marshall MD [address] [place] [address] [email or web address] PCP - General Family Medicine 08/18/23 documented as of this encounter Additional Source Comments The information contained in this document represents components of the legal health record. It is not the complete legal health record.[facility]
--- OUTSIDE RECORDS SUMMARY | 2025-08-03 13:01 | XMS_ITS | Encounter Summary ---
Author Organization [facility] Address [address] [facility] [address] [place] [address] Phone Care Team Providers Care Lawn Service Supervisor Name Role Phone Christine Cruz MD Primary Care Provider [phone] Michelle Marshall MD Primary Care Provider [phone] Michelle Marshall MD Primary Care Provider Encounter Details Date Type Department Care Team (Late st Contact Info) Description 05/24/2020 Ancillary Orders Virtual Department 30 [place] [address] Gloria Mary, CAM [address] Melvin Grayson [address] [address] Breast screening Social History Tobacco Use Types Packs/Day Years Used Date Smoking Tobacco: Never Assessed Comments No Sex and Gender Information Value [...] Description 08/07/2025 8:15 AM EST Office Visit [facility] 22 [facility] 3rd Floor, [address] [place], [place] [id number] Bryant Scales, 22 [facility] [address] [place], [place] [phone] [email or web address] 08/22/2025 3:15 PM EST Office Visit [facility] 10 [place] [address] Unknown, Unknown, Connie Garrido PA-C 10 [facility] 2 [place] [address] 09/04/2025 11:10 AM EST Office Visit [facility] Rheumatology 22 [place] [address] Raina Bernard MD, MPH 22 [facility], [facility] 203 [place] [address] [email or web address] documented as of this encounter Results * BI MAMMOGRAM SCREENING WITH TOMOSYNTHESIS WITH CAD (BILATERAL) (05/28/2020 9:32 AM EDT) Anatomical Region Laterality Modality Breast Left, Breast Right, Breast Bilateral Bila teral Mammography 05/28/2020 12:4 3 PM EDT Impressions 05/28/2020 12:45 PM EDT No mammographic change indicative of malignancy. Routine screening is recommended. BI-RADS CATEGORY 2 - BENIGN DENSITY: The breast tissue is heterogeneously dense, an appearance which lowers the sensitivity of mammography. Narrative 05/28/2020 12:45 PM EDT Bilateral full-field digital screening mammography is obtained and read in conjunction with computer-aided detection. Tomosynthesis as well as 2-D C view imaging of both breasts in two planes also obtained. Comparison made to multiple prior, most recent May 22, 2019, and most remote November 16, 2013. No dominant mass, architectural distortion, worrisome asymmetry, or suspicious calcification is identified. No skin or nipple finding of concern is appreciated. Coarse and vascular calcification is stable. us Gloria LEVY IMG MG EXAMS Final Result documented in this encounter Visit Diagnoses Diagnosis Breast screening Breast screening, unspecified Breast screening Breast screening, unspecified documented in this encounter Care Teams Lawn Service Supervisor Relationship Specialty Start Date End Date Christine Cruz MD 4 [place] [address] PCP - General 07/13/17 08/09/22 Michelle Marshall MD [address] [place] [address] PCP - General Family Medicine 08/10/22 08/17/23 Michelle Marshall MD [address] [place] [address] PCP - General Family Medicine 08/18/23 documented as of this encounter Additional Source Comments The information contained in this document represents components of the legal health record. It is not the complete legal health record.[facility]
--- OUTSIDE RECORDS SUMMARY | 2025-08-03 13:01 | XMS_ITS | Encounter Summary ---
Author Organization [facility] Address [address] [place] [address] Phone Care Team Providers Care Cleaning Team Member Name Role Phone Michelle Marshall MD Primary Care Provider [phone] Encounter Details Date Type Department Care Team (Late st Contact Info) Description 08/18/2024 Procedure Pass [facility] 30 [place] [address] Social History Tobacco Use Types Packs/Day Years [...] Description 08/07/2025 8:15 AM EST Office Visit [facility] [address] [place] [address] 3rd Floor, [address] [place] [address] Storm Scales DO 22 [facility] [address] [place] [phone] [email or web address] 08/22/2025 3:15 PM EST Office Visit [facility]astro[facility] Clinic 10 [place] [address] Unknown, Unknown, Connie Garrido PA-C [address] [address] 09/04/2025 11:10 AM EST Office Visit [facility] Rhe[facility]ology 22 [place] [address] Raina Bernard MD, MPH 22 [facility], [address] [place] [address] [email or web address] documented as of this encounter Visit Diagnoses Not on filedocumented in this encounter Care Teams Cleaning Team Member Relationship Specialty Start Date End Date Michelle Marshall MD [address] [place] [address] [email or web address] PCP - General Family Medicine 08/18/23 documented as of this encounter Additional Source Comments The information contained in this document represents components of the legal health record. It is not the complete legal health record.[facility]
--- OUTSIDE RECORDS SUMMARY | 2025-08-03 13:01 | XMS_ITS | Encounter Summary ---
Author Organization [facility] Address [address] [facility] [address] [place] [address] Phone Care Team Providers Care Bait Packer Name Role Phone Christine Cruz MD Primary Care Provider Michelle Marshall MD Primary Care Provider [phone] Michelle Marshall MD Primary Care Provider Encounter Details Date Type Department Care Team (Late st Contact Info) Description 05/28/2020 Procedure Pass [facility], [address] [address] Social History Tobacco Use Types Packs/Day Years [...] Description 08/07/2025 8:15 AM EST Office Visit [facility] [address] [place] [address] 3rd Floor, [address] [place] [address] Storm Scales DO 22 [facility] [address] [place] [address] [email or web address] 08/22/2025 3:15 PM EST Office Visit [facility] Clinic 10 [place] [address] Unknown, Unknown, Connie Garrido PA-C [address] [address] 09/04/2025 11:10 AM EST Office Visit [facility] Rheumatology 22 [place] [address] Raina Bernard MD, MPH 22 [facility], [address] [place] [address] [email or web address] documented as of this encounter Visit Diagnoses Not on filedocumented in this encounter Care Teams Bait Packer Relationship Specialty Start Date End Date Christine Cruz MD [address] [place] [address] PCP - General 07/13/17 08/09/22 Michelle Marshall MD [address] [place] [address] PCP - General Family Medicine 08/10/22 08/17/23 Michelle Marshall MD [address] [place] [address] PCP - General Family Medicine 08/18/23 documented as of this encounter Additional Source Comments The information contained in this document represents components of the legal health record. It is not the complete legal health record.[facility]
--- OUTSIDE RECORDS SUMMARY | 2025-08-03 13:01 | XMS_ITS | Encounter Summary ---
Author Organization [facility] Address [address] [facility] [address] [place] [address] Phone Care Team Providers Care Enrolled Nurse Name Role Phone Christine Cruz MD Primary Care Provider [phone] Michelle Marshall MD Primary Care Provider [phone] Michelle Marshall MD Primary Care Provider [phone] Encounter Details Date Type Department Care Team (Late st Contact Info) Description 05/05/2022 Procedure Pass [facility], [address] [address] Social History Tobacco Use Types Packs/Day Years [...] Description 08/07/2025 8:15 AM EST Office Visit [facility] 22 [facility] 3rd Floor, [address] [place] [address] Storm Scales, 22 [facility] [address] [place], [place] [phone] [email or web address] 08/22/2025 3:15 PM EST Office Visit [facility] 10 [place] [address] Unknown, Unknown, Connie Garrido PA-C [address] [address] 09/04/2025 11:10 AM EST Office Visit [facility] Rhe[facility]ology 22 [place] [address] Raina Bernard MD, MPH 22 [facility], [address] [place] [address] documented as of this encounter Visit Diagnoses Not on filedocumented in this encounter Care Teams Enrolled Nurse Relationship Specialty Start Date End Date Christine Cruz MD [address] [place] [address] PCP - General 07/13/17 08/09/22 Michelle Marshall MD [address] [place] [address] PCP - General Family Medicine 08/10/22 08/17/23 Michelle Marshall MD [address] [place] [address] PCP - General Family Medicine 08/18/23 documented as of this encounter Additional Source Comments The information contained in this document represents components of the legal health record. It is not the complete legal health record.[facility]
--- OUTSIDE RECORDS SUMMARY | 2025-08-03 13:01 | XMS_ITS | Encounter Summary ---
Author Organization [facility] Address [address] [facility] [address] [place] [address] Phone Care Team Providers Care Middle School Art Teacher Name Role Phone Michelle Marshall MD Primary Care Provider [phone] Reason for Referral * MRI/CAT Scan - Closed Specialty Diagnoses / Procedures Referred By Contac t Referred To Contact Radiology Diagnoses Other spondylosis with radiculopathy, thoracic region Procedures MRI Thoracic Spine CHG MRI, DORSAL SPINE CHG MRI, DORSAL SPINE CONTRAST CHG MRI, DORSAL SPINE COMBO MA MAURI MR BILLY TISS COMPOSITION W/MRI TESTER ROCKET ENGINE ORGANS Mark Jernigan DO [address] [place] [id number] Phone: tel: fax: mailto:[email or web address] Referral ID Status Reason Start Date Expiration Date Visits Re quested Visits Authorized [id number] Closed 03/23/2025 05/22/2025 1 1 Encounter Details Date Type Department Care Team (Latest Contact Info) Description 03/26/2025 Transcribe Orders Virtual Department [address] [place] [address] Mark Jernigan DO [address] [place] [phone] [email or web address] Other spondylosis with radiculopathy, thoracic region (Primary Dx) Social History Tobacco Use Types [...] Description 08/07/2025 8:15 AM EST Office Visit [facility] [address] [facility] 3rd Floor, [address] [place] [address] Storm Scales DO 22 [facility] [address] [place] [address] [email or web address] 08/22/2025 3:15 PM EST Office Visit [facility] [address] [place] [address] Unknown, Unknown, Connie Garrido PA-C [address] [address] 09/04/2025 11:10 AM EST Office Visit [facility] Rheumatology 22 [place] [address] Raina Bernard MD, MPH 22 [facility], [address] [place] [address] documented as of this encounter Results * MRI THORACIC SPINE (BONE) WITHOUT CONTRAST (04/20/2025 9:56 AM EDT) Anatomical Region Laterality Modality T-spine Magnetic Resonan ce 04/23/2025 9:41 AM EDT Impressions 04/23/2025 10:43 AM EDT 1. Focal kyphosis secondary to chronic lower thoracic compression fractures, in combination with degenerative and postoperative changes. Severe spinal canal narrowing at T8-T9 is again seen secondary to bulky posterior ossification. Severe bilateral foraminal narrowing at T8-T9 and T9-T10. 2. Chronic ununited dens fracture. Narrative 04/23/2025 10:43 AM EDT MRI THORACIC SPINE (BONE) WITHOUT CONTRAST Referring clinician's provided indication for this examination in Epic: Outside Radiology Order; spondylosis TECHNIQUE: MRI THORACIC SPINE (BONE) WITHOUT CONTRAST Multi-sequence, multi-planar MRI of the thoracic spine was performed without intravenous contrast. COMPARISON: MRI THORACIC SPINE (NEURO) WITHOUT CONTRAST ; XR THORACIC SPINE 3 VIEW FINDINGS: THORACIC SPINE: Some sequences are motion degraded which limits evaluation. Alignment and Vertebrae: Again seen is exaggeration of the normal thoracic kyphosis and chronic appearing compression deformities of T8, T9, T10, and T11, with cement augmentation in T9 and T10. There are postoperative changes from posterior decompression spanning T9 and T10, and partially imaged thoracolumbar posterior instrumented fusion construct with associated susceptibility artifact extending caudally out of the [id number]. Intervertebral spacers in the visualized upper lumbar spine are seen. Marrow: No bone marrow replacing lesion. Discs and Endplates: Multilevel disc degeneration and disc height loss. Multilevel disc herniations including a cranially directed right paracentral disc extrusion at T7-T8 which narrows the anterior CSF space. Bulky posterior ossification along the posterior aspect of the vertebral bodies spanning T8 through T10 is again seen, most prominent at T8-T9 where there is severe spinal canal narrowing. Severe bilateral foraminal narrowing at T8-T9 and T9-T10. Spinal Cord: No definite signal alteration within the thoracic spinal cord noting that motion degradation limits evaluation. Soft Tissue: No prevertebral edema. There is a 1.4 cm oval T2 hyperintense lesion in the upper pole of the right kidney, partially imaged. Other Findings: Localizer sequence shows chronic ununited dens fracture as seen on previous MRI. Procedure Note Zeyad Orta MD - 04/23/2025 MRI THORACIC SPINE (BONE) WITHOUT CONTRAST Referring clinician's provided indication for this examination in Epic:Outside Radiology Order; spondylosis TECHNIQUE: MRI THORACIC SPINE (BONE) WITHOUT CONTRAST Multi-sequence, multi-planar MRI of the thoracic spine was performedwithout intravenous contrast. COMPARISON: MRI THORACIC SPINE (NEURO) WITHOUT CONTRAST ; XRTHORACIC SPINE 3 VIEW FINDINGS: THORACIC SPINE: Some sequences are motion degraded which limits evaluation. Alignment and Vertebrae: Again seen is exaggeration of the normal thoracickyphosis and chronic appearing compression deformities of T8, T9, T10, andT11, with cement augmentation in T9 and T10. There are postoperativechanges from posterior decompression spanning T9 and T10, and partiallyimaged thoracolumbar posterior instrumented fusion construct withassociated susceptibility artifact extending caudally out of [id number]. Intervertebral spacers in the visualized upper lumbar spineare seen. Marrow: No bone marrow replacing lesion. Discs and Endplates: Multilevel disc degeneration and disc height loss.Multilevel disc herniations including a cranially directed rightparacentral disc extrusion at T7-T8 which narrows the anterior CSF space.Bulky posterior ossification along the posterior aspect of the vertebralbodies spanning T8 through T10 is again seen, most prominent at T8-H8eordu there is severe spinal canal narrowing. Severe bilateral foraminalnarrowing at T8-T9 and T9-T10. Spinal Cord: No definite signal alteration within the thoracic spinal cordnoting that motion degradation limits evaluation. Soft Tissue: No prevertebral edema. There is a 1.4 cm oval T2 hyperintenselesion in the upper pole of the right kidney, partially imaged. Other Findings: Localizer sequence shows chronic ununited dens fracture asseen on previous MRI. IMPRESSION: 1. Focal kyphosis secondary to chronic lower thoracic compressionfractures, in combination with degenerative and postoperative changes.Severe spinal canal narrowing at T8-T9 is again seen secondary to bulkyposterior ossification. Severe bilateral foraminal narrowing at T8-T9 andT9-T10. 2. Chronic ununited dens fracture. us Mark Jernigan DO IMG MR XSPECIALTY Final Resu lt documented in this encounter Visit Diagnoses Diagnosis Other spondylosis with radiculopathy, thoracic region- Primary Other spondylosis with radiculopathy, thoracic region documented in this encounter Care Teams Middle [employer] Art Teacher Relationship Specialty Start Date End Date Michelle Marshall MD [address] [place] [address] [email or web address] PCP - General Family Medicine 08/18/23 documented as of this encounter Additional Source Comments The information contained in this document represents components of the legal health record. It is not the complete legal health record.[facility]
--- OUTSIDE RECORDS SUMMARY | 2025-08-03 13:01 | XMS_ITS | Encounter Summary ---
Author Organization [facility] Address [address] [facility] [address] [place] [address] Phone Care Team Providers Care Stoker Installation Mechanic Name Role Phone Christine Cruz MD Primary Care Provider [phone] Michelle Marshall MD Primary Care Provider [phone] Michelle Marshall MD Primary Care Provider [phone] Encounter Details Date Type Department Care Team (Late st Contact Info) Description 04/29/2021 Procedure Pass [facility], [address] [address] Social History Tobacco Use Types Packs/Day Years [...] Description 08/07/2025 8:15 AM EST Office Visit [facility] [address] [facility] 3rd Floor, [address] [place] [address] Storm Scales, 22 [facility] [address] [place] [id number] [email or web address] 08/22/2025 3:15 PM EST Office Visit [facility] 10 [place] [address] Unknown, Unknown, Connie Garrido PA-C [address] [address] 09/04/2025 11:10 AM EST Office Visit [facility] Rhe[facility] 22 [place] [address] Raina Bernard MD, MPH [address] [facility], [address] [place] [address] documented as of this encounter Visit Diagnoses Not on filedocumented in this encounter Care Teams Stoker Installation Mechanic Relationship Specialty Start Date End Date Christine Cruz MD [address] [place] [address] PCP - General 07/13/17 08/09/22 Michelle Marshall MD [address] [place] [address] PCP - General Family Medicine 08/10/22 08/17/23 Michelle Marshall MD [address] [place] [id number] PCP - General Family Medicine 08/18/23 documented as of this encounter Additional Source Comments The information contained in this document represents components of the legal health record. It is not the complete legal health record.[facility]
--- OUTSIDE RECORDS SUMMARY | 2025-08-03 13:01 | XMS_ITS | Encounter Summary ---
Author Organization [facility] Address [address] [facility] [address] [place] [phone] Phone Care Team Providers Care Data Entry Supervisor Name Role Phone Michelle Marshall MD Primary Care Provider [phone] Reason for Referral * MRI/CAT Scan - Closed Specialty Diagnoses / Procedures Referred By Contjose t Referred To Contact Radiology Diagnoses Chest pain, unspecified type Procedures NC Stress Result for Nuclear Stress Test Michelle Marshall MD [address] [place] [address] Phone: tel: fax: [email or web address] Referral ID Status Reason Start Date Expiration Date Visits Re quested Visits Authorized [id number] Closed 12/04/2024 12/04/2025 1 1 Encounter Details Date Type Department Care Team (Late st Contact Info) Description 12/04/2024 Ancillary Orders Virtual Department 30 [place] [address] Michelle Marshall MD [address] [place] [phone] [email or web address] Chest pain, unspecified type (Primary Dx) Social History Tobacco [...] Description 08/07/2025 8:15 AM EST Office Visit [facility] [address] [place] [address] 3rd Floor, [address] [place] [address] Storm Scales DO 22 [facility] [address] [place] [address] [email or web address] 08/22/2025 3:15 PM EST Office Visit [facility] 10 [place] [address] Unknown, Unknown, Connie Garrido PA-C [address] [address] 09/04/2025 11:10 AM EST Office Visit [facility] Rheumatology 22 [place] [address] Raina Bernard MD, MPH [address] [facility], [address] [place] [address] documented as of this encounter Results * NC Stress Result for Nuclear Stress Test (12/04/2024 11:01 AM EDT) Max Predicted Heart Rate 145 bpm [facility] Max BP Systolic 150 mmHg [facility] Max BP Diastolic 70 mmHg [facility] Max HR 133 BPM [facility] Resting HR 110 BPM [facility] Resting BP Systolic 136 mmHg [facility] Resting BP Diastolic 90 mmHg [facility] Peak METS 1.0 METS [facility] Peak HR 127 BPM [facility] Anatomical Region Laterality Modality Heart Other 12/04/2024 9:55 AM EDT 12/04/2024 11:00 AM EDT Narrative 12/04/2024 1:56 PM EDT Stress Findings The resting heart rate was 110 BPM. The resting BP was 136/90 mmHg. A peak heart rate of 127 BPM was achieved. ECG Report: Testing performed as a walking pharmacologic study due to hip pain 0.4 mg Regadenoson (lexiscan) given IV push over 10 seconds as per protocol immediately followed by injection of Tc99m Sestamibi by mineral technologist. 1. EKG: Baseline EKG showed sinus rhythm without significant ST-T wave abnormality. Following administration of lexiscan there were no ECG changes meeting criteria for ischemia 2. SYMPTOMS: No chest pain or symptoms concerning for angina. With Lexiscan patient did become very lightheaded/dizzy, symptoms resolved after administration of 75 mg IV aminophylline 3. PHYSIOLOGY: Resting HR was 110 bpm. After Lexiscan injection, HR 133 bpm. Blood pressure: 136/90 at rest, 110/60 following administration of lexiscan, and 144/80 on discharge from stress lab. 4. ARRHYTHMIAS: Frequent isolated PVCs seen in pretest and walking EKGs. Ventricular ectopy seem to dissipate on post stress EKGs. Conclusion: ECG portion of nuclear stress test without ECG changes meeting criteria for ischemia and without symptoms concerning for angina. Frequent PVC's present Nuclear images pending and will be reported separately. See attached stress report for full details. Rachel Desai ENVIRONMENTAL ENGINEERING AIDE with Dr. Villalobos Response to Stress The patient exercised for minutes and seconds, achieving 1.0 METS at peak exercise. Baseline blood pressure was 136/90 mmHg, and baseline heart rate was 110 bpm. The patient achieved a peak heart rate of 127 bpm, which is% of their maximum predicted heart rate. us Michelle Marshall MD CV NM CARDIAC Final Resul t documented in this encounter Visit Diagnoses Diagnosis Chest pain, unspecified type- Primary Chest pain, unspecified type documented in this encounter Care Teams Data Entry Supervisor Relationship Specialty Start Date End Date Michelle Marshall MD [address] [place] [address] [email or web address] PCP - General Family Medicine 08/18/23 documented as of this encounter Additional Source Comments The information contained in this document represents components of the legal health record. It is not the complete legal health record.[facility]
--- OUTSIDE RECORDS SUMMARY | 2025-08-03 13:01 | XMS_ITS | Encounter Summary ---
Author Organization [facility] Address [address] [place] [address] Phone Care Team Providers Care Filter Press Tender Head Name Role Phone Christine Cruz MD Primary Care Provider [phone] Michelle Marshall MD Primary Care Provider [phone] Michelle Marshall MD Primary Care Provider [phone] Encounter Details Date Type Department Care Team (Late st Contact Info) Description 03/08/2021 Procedure Pass [facility], Ct Scan - [facility] [address] [place] [address] Social History Tobacco Use Types Packs/Day Years Used Date Smoking Tobacco: Former Comments:former 40 years ago Alcohol Use Standard [...] Date of Assessment Author No Risk Indicated 03/08/2021 12:36 PM EDT Verónica Honeycutt RN * [place] Suicide Severity Rating Scale (Screener/Recent Self-Report) Question Answer Date of Assessment Author 1. Wish to be (Past 1 Month) No 021 12:36 PM EDT Tangela, Verónica, RN 2. Non-Specific Active Suici carmela Thoughts (Past 1 Month) No 03/08/2021 12:36 PM EDT Verónica Honeycutt, MEJIA 6. Suicidal Behavior (Lifetime) No 12:36 PM EDT Verónica Honeycutt, RN documented as of this encounter Plan of Treatment Upcoming Encounters Date Type Department Care Team (Late st Contact Info) Description 08/07/2025 8:15 AM EST Office Visit [facility] [address] [place] [address] 3rd Floor, [address] [place] [address] Storm Scales DO [address] [facility] [address] [place] [address] [email or web address] 08/22/2025 3:15 PM EST Office Visit [facility] Clinic [address] [place] [address] Unknown, Unknown, Connie Garrido PA-C [address] [place] [address] 09/04/2025 11:10 AM EST Office Visit [facility] Rheumatology [address] [place] [address] Raina Bernard MD, MPH [address] [facility], [address] [place] [address] documented as of this encounter Visit Diagnoses Not on filedocumented in this encounter Care Teams Filter Press Tender Head Relationship Specialty Start Date End Date Christine Cruz MD [address] [place] [address] PCP - General 07/13/17 08/09/22 Michelle Marshall MD [address] [place] [address] [email or web address] PCP - General Family Medicine 08/10/22 08/17/23 Michelle Marshall MD [address] [place] [address] [email or web address] PCP - General Family Medicine 08/18/23 documented as of this encounter Additional Source Comments The information contained in this document represents components of the legal health record. It is not the complete legal health record.[facility]
--- OUTSIDE RECORDS SUMMARY | 2025-08-03 13:01 | XMS_ITS | Encounter Summary ---
Author Organization [facility] Address [address] [place] [address] Phone Care Team Providers Care Proofreader Name Role Phone Christine Cruz MD Primary Care Provider [phone] Michelle Marshall MD Primary Care Provider [phone] Michelle Marshall MD Primary Care Provider Encounter Details Date Type Department Care Team (Late st Contact Info) Description 04/29/2021 Ancillary Orders Virtual Department 30 [place] [address] Christine Cruz MD 4 [place] [address] Breast screening Social History Tobacco Use Types [...] Description 08/07/2025 8:15 AM EST Office Visit [facility] [address] [place] [address] 3rd Floor, [address] [place] [address] Storm Scales DO 22 [facility] [address] [place] [address] [email or web address] 08/22/2025 3:15 PM EST Office Visit [facility] G[facility]ology Clinic 10 [place] [address] Unknown, Unknown, Connie Garrido PA-C [address] [address] [email or web address] 09/04/2025 11:10 AM EST Office Visit [facility] Rheumatology [address] [place] [address] Raina Bernard MD, MPH [address] [facility], [address] [place] [address] documented as of this encounter Results * BI MAMMOGRAM SCREENING WITH TOMOSYNTHESIS WITH CAD (BILATERAL) (06/04/2021 9:17 AM EDT) Anatomical Region Laterality Modality Breast Left, Breast Right, Breast Bilateral Bila teral Mammography 06/04/2021 9:57 AM EDT Impressions 06/04/2021 10:11 AM EDT No mammographic signs of malignancy. Annual screening is recommended. BI-RADS CATEGORY: 2 - Benign finding. DENSITY: The breast tissue is extremely dense, which lowers the sensitivity of mammography. Narrative 06/04/2021 10:11 AM EDT Bilateral mammography is performed in conjunction with computed aided detection. 3-D tomography along with 2-D C view imaging was also performed. Comparison made to previous dated as far back as 12/03/2014 and as recent as 05/28/2020. A mass in the periareolar lower inner left breast is stable. No suspicious masses, areas of architectural distortion or suspicious microcalcifications. Stable coarse bilateral calcifications with benign characteristics. Procedure Note Danyel Wilkins MD - 06/04/2021 Bilateral mammography is performed in conjunction with computed aideddetection. 3-D tomography along with 2-D C view imaging was alsoperformed. Comparison made to previous dated as far back as 12/03/2014 andas recent as 05/28/2020. A mass in the periareolar lower inner left breast is stable. No suspiciousmasses, areas of architectural distortion or suspiciousmicrocalcifications. Stable coarse bilateral calcifications with benigncharacteristics. IMPRESSION: No mammographic signs of malignancy. Annual screening is recommended. BI-RADS CATEGORY: 2 - Benign finding. DENSITY: The breast tissue is extremely dense, which lowers thesensitivity of mammography. Christine Cruz MD IMG MG EXAMS Final Result documented in this encounter Visit Diagnoses Diagnosis Breast screening Breast screening, unspecified Breast screening Breast screening, unspecified documented in this encounter Care Teams Proofreader Relationship Specialty Start Date End Date Christine Cruz MD [address] [place] [address] PCP - General 07/13/17 08/09/22 Michelle Marshall MD [address] [place] [address] PCP - General Family Medicine 08/10/22 08/17/23 Michelle Marshall MD [address] [place] [address] PCP - General Family Medicine 08/18/23 documented as of this encounter Additional Source Comments The information contained in this document represents components of the legal health record. It is not the complete legal health record.[facility]
--- OUTSIDE RECORDS SUMMARY | 2025-08-03 13:02 | XMS_ITS | Encounter Summary ---
Author Organization [facility] Address [address] [place] [address] Phone Care Team Providers Care Lab Systems Analyst Name Role Phone Michelle Marshall MD Primary Care Provider [phone] Michelle Marshall MD Primary Care Provider [phone] Encounter Details Date Type Department Care Team (Latest Contact Info) Description 06/02/2023 Transcribe Orders Virtual Department [address] [place] [address] Mark Jernigan, DO [address] [place] [address] [email or web address] Thoracic spine pain (Primary Dx) Social History Tobacco Use Types Packs/Day Years Used Date Smoking Tobacco: Former Cigarettes 1 966 - 1969 Smokeless Tobacco: Never Comments:former 40 years [...] Description 08/07/2025 8:15 AM EST Office Visit [facility] [address] [facility] 3rd Floor, [address] [place] [address] Storm Scales DO [address] [facility] [address] [place] [address] [email or web address] 08/22/2025 3:15 PM EST Office Visit [facility] Gastro[facility]ology Clinic [address] [place] [address] Unknown, Unknown, Connie Garrido PA-C [address] [address] 09/04/2025 11:10 AM EST Office Visit [facility] Rheumatology [address] [place] [address] Raina Bernard MD, MPH [address] [facility], [address] [place] [address] documented as of this encounter Results * XR THORACIC SPINE 3 VIEW (06/17/2023 10:21 AM EDT) Anatomical Region Laterality Modality T-spine Computed Radiogr aphy 06/22/2023 9:42 AM EDT Impressions 06/22/2023 9:49 AM EDT No substantial change in thoracic spine vertebral body height loss, postoperative change, and degenerative findings when compared to June 2022. Narrative 06/22/2023 9:49 AM EDT XR THORACIC SPINE 3 VIEW COMPARISON: XR THORACOLUMBAR SPINE 2 VIEWS 2021- FINDINGS: Unchanged vertebral body height loss at T8-T11, with cement in the T9 and T10 vertebral bodies, likely due to prior hardware. There is apparent ankylosis at T10-T11. Vertebral body heights are similar compared to prior. Cervical and lumbosacral hardware are partially visualized, but unremarkable. No new compression deformity. Alignment, including angular kyphosis, and background degenerative findings are similar to prior. Severe diffuse osseous demineralization. Procedure Note Sebastián Biswas MD - 06/22/2023 XR THORACIC SPINE 3 VIEW COMPARISON: XR THORACOLUMBAR SPINE 2 VIEWS 2021- FINDINGS: Unchanged vertebral body height loss at T8-T11, with cement in the T9 andT10 vertebral bodies, likely due to prior hardware. There is apparentankylosis at T10-T11. Vertebral body heights are similar compared toprior. Cervical and lumbosacral hardware are partially visualized, butunremarkable. No new compression deformity. Alignment, including angular kyphosis, and background degenerativefindings are similar to prior. Severe diffuse osseous demineralization. IMPRESSION: No substantial change in thoracic spine vertebral body height loss,postoperative change, and degenerative findings when compared to June2022. [email or web address] Jernigan DO IMG XR SPINE Final Result documented in this encounter Visit Diagnoses Diagnosis Thoracic spine pain- Primary Pain in thoracic spine Thoracic spine pain Pain in thoracic spine documented in this encounter Care Teams Lab Systems Analyst Relationship Specialty Start Date End Date Michelle Marshall MD PCP - General Family Medicine 08/10/22 08/17/23 Michelle Marshall MD [address] [place] [address] PCP - General Family Medicine 08/18/23 documented as of this encounter Additional Source Comments The information contained in this document represents components of the legal health record. It is not the complete legal health record.[facility]
--- OUTSIDE RECORDS SUMMARY | 2025-08-03 13:02 | XMS_ITS | Clinical Summary ---
Author Organization [facility] Address [address] [place] [address] Care Team Providers Care Patient Case Coordinator Name Role Phone Greg Luz MD Primary Care Provider [phone] Allergies Active Allergy Reactions Criticality Noted Date Comments Aspirin Anaphylaxis High 06/03/2021 Nsaids Anaphylaxis High 06/03/2021 Medications Medication Sig Dispensed Refills Start Date End Date Status levothyroxine (SYNTHROID) tablet 50 mcg Take 50 mcg by mouth every morning on an empty stomach. 0 Active amitriptyline (ELAVIL) 10 MG tablet Take 10 mg by mouth every night at bedtime. 0 Active hydroxychloroquine (PLAQUENIL) 200 MG tablet Take 200 mg by mouth daily. 0 Active amLODIPine (NORVASC) tablet 10 mg Take 10 mg by mouth daily. 0 Active leflunomide (ARAVA) 10 MG tablet Take 20 mg by mouth daily. 0 Active Loratadine 10 MG CAPS Take 10 mg by mouth. 0 Active lovastatin (MEVACOR) 10 MG tablet Take 10 mg by mouth every night at bedtime. 0 Active cyclobenzaprine (FLEXERIL) 10 MG tablet Take 5 mg by mouth 3 (three) times a day as needed for muscle spasms. 0 Active EPINEPHrine 0.15 MG/0.15ML SOAJ Auto-injector Inject 0.15 mg into the muscle once. For aspirin, NSAID allergies 0 Active albuterol 108 (90 Base) MCG/ACT inhaler Inhale 2 puffs into the lungs every 6 (six) hours as needed for wheezing. 0 Active Social History Tobacco Use Types Packs/Day Years Used Date Smoking Tobacco: Never Smokeless Tobacco: Never Alcohol Use Standard Drinks/Week Comments Not Currently 0 (1 standard drink = 0.6 oz pur e alcohol) Sex and Gender Information Value Date Recorded Sex Assigned at Not on file Gender Identity Not on file Sexual Orientation Not on file Last Filed Vital Signs Vital Sign Reading Time Taken Comments Blood Pressure - - Pulse 100 06/03/2021 9:19 AM EDT Temperature 36.5 C (97.7 F) 06/03/2021 9:19 AM EDT Respiratory Rate - - Oxygen Saturation 97% 06/03/2021 9:19 AM EDT Inhaled Oxygen Concentration - - Weight 59 kg (130 lb) 06/03/2021 9:19 AM EDT Height 165.1 cm (5' 5 ) 06/03/2021 9:19 AM EDT Body Mass Index 21.63 06/03/2021 9:19 AM EDT Plan of Treatment Health Maintenance Due Date Last Done Comments Hepatitis C Screening 1949 Depression Screening 1961 Preventative Health Evaluation 1967 Fall Risk Assessment 2014 Osteoporosis Screening (DEXA Scan) 2014 DTap / Tdap / Td (2 - Td or Tdap) 02/08/2020 02/07/2010 RSV Adult > 60+ Yrs or (1 - 1-dose 75+ series) 2024 COVID-19 Vaccine ( - season) 2025 01/10/2021, 12/17/2020 Influenza Vaccine (#1) 2025 , 06/19/2019, 06/10/2017, Additional history exists Pneumococcal Vaccine Completed 06/15/2016, 03/22/2015, 06/03/2010 Shingrix-Zoster Vaccine Completed 11/07/2020, 08/17 Hepatitis B Vaccines Aged Out No long er eligible based on patient's age to complete this topic RSV Ped < 20 months Aged Out No longe r eligible based on patient's age to complete this topic Care Teams Patient Case Coordinator Relationship Specialty Start Date End Date Greg Luz MD [address] [place], [place] [id number] PCP - General Internal Medicine 11/30/19
--- OUTSIDE RECORDS SUMMARY | 2025-08-03 13:02 | XMS_ITS | Encounter Summary ---
Author Organization [facility] Address [address] [place] [address] Phone Care Team Providers Care Social Science Professor Name Role Phone Michelle Marshall MD Primary Care Provider [phone] Encounter Details Date Type Department Care Team (Late st Contact Info) Description 08/18/2024 Transcribe Orders Virtual Department [address] [place] [address] Michelle Marshall MD [address] [place] [address] [email or web address] Breast screening (Primary Dx) Social History Tobacco Use Types [...] Description 08/07/2025 8:15 AM EST Office Visit [facility] [address] [place] [address] 3rd Floor, [address] [place] [address] Storm Scales, 22 [facility] [address] [place] [address] [email or web address] 08/22/2025 3:15 PM EST Office Visit [facility] Gastroenterology Clinic [address] [place] [address] Unknown, Unknown, Connie Garrido PA-C [address] [address] [email or web address] 09/04/2025 11:10 AM EST Office Visit [facility] Rheumatology [address] [place] [address] Raina Bernard MD, MPH [address] [facility], [address] [place] [address] documented as of this encounter Results * BI MAMMOGRAM SCREENING WITH TOMOSYNTHESIS WITH CAD (BILATERAL) (02/09/2025 1:36 PM EDT) Anatomical Region Laterality Modality Breast Left, Breast Right, Breast Bilateral Bila teral Mammography 02/09/2025 3:49 PM EDT Impressions 02/09/2025 3:51 PM EDT No mammographic evidence of malignancy in either breast. Annual screening mammography is recommended. BI-RADS 2 BENIGN The patient will be notified of the results and recommendations. Narrative 02/09/2025 3:51 PM EDT BI MAMMOGRAM SCREENING WITH TOMOSYNTHESIS WITH CAD (BILATERAL) Additional patient information: Screening. COMPARISON: Comparison is made with relevant prior imaging. Breast composition: The breasts are extremely dense, which lowers the sensitivity of mammography. FINDINGS: Benign calcifications in both breasts. No abnormal masses, suspicious calcifications, or other significant findings are identified mammographically in either breast. Procedure Note Hadley Mendoza MD - 02/09/2025 BI MAMMOGRAM SCREENING WITH TOMOSYNTHESIS WITH CAD (BILATERAL) Additional patient information: Screening. COMPARISON: Comparison is made with relevant prior imaging. Breast composition: The breasts are extremely dense, which lowers thesensitivity of mammography. FINDINGS: Benign calcifications in both breasts. No abnormal masses, suspicious calcifications, or other significantfindings are identified mammographically in either breast. IMPRESSION: No mammographic evidence of malignancy in either breast. Annual screening mammography is recommended. BI-RADS 2 BENIGN The patient will be notified of the results and recommendations. us Michelle Marshall MD IMG MG EXAMS Final Resul t documented in this encounter Visit Diagnoses Diagnosis Breast screening- Primary Breast screening, unspecified Breast screening Breast screening, unspecified documented in this encounter Care Teams Social Science Professor Relationship Specialty Start Date End Date Michelle Marshall MD [address] [place] [address] [email or web address] PCP - General Family Medicine 08/18/23 documented as of this encounter Additional Source Comments The information contained in this document represents components of the legal health record. It is not the complete legal health record.[facility]
--- OUTSIDE RECORDS SUMMARY | 2025-08-03 13:02 | XMS_ITS | Encounter Summary ---
Author Organization [facility] Address [address] [place] [address] Phone Care Team Providers Care Warehouse Order Puller Name Role Phone Michelle Marshall MD Primary Care Provider [phone] Michelle Marshall MD Primary Care Provider [phone] Encounter Details Date Type Department Care Team (Late st Contact Info) Description 05/28/2023 Transcribe Orders Virtual Department [address] [place] [address] Michelle Marshall MD [address] [place], [place] [id number] [email or web address] Breast screening (Primary Dx) Social History Tobacco [...] Description 08/07/2025 8:15 AM EST Office Visit [facility] [address] Floor, [address] [place] [address] Storm Scales DO [address] [facility] [address] [place] [address] [email or web address] 08/22/2025 3:15 PM EST Office Visit [facility] Gastroenterology Clinic [address] [place] [address] Unknown, Unknown, Connie Garrido PA-C [address] [place] [address] 09/04/2025 11:10 AM EST Office Visit [facility] Rheumatology [address] [place] [address] Raina Bernard MD, MPH [address] [facility], [address] [place] [address] documented as of this encounter Results * BI MAMMOGRAM SCREENING WITH TOMOSYNTHESIS WITH CAD (BILATERAL) (08/18/2023 1:38 PM EST) Anatomical Region Laterality Modality Breast Left, Breast Right, Breast Bilateral Bila teral Mammography 08/23/2023 7:10 AM EST Impressions 08/23/2023 7:21 AM EST No mammographic evidence of malignancy in either breast. Annual screening mammography is recommended. BI-RADS CATEGORY: 2 - Benign finding. The patient will be notified of the results and recommendations. Narrative 08/23/2023 7:21 AM EST BI MAMMOGRAM SCREENING WITH TOMOSYNTHESIS WITH CAD (BILATERAL) Additional patient information: Screening. COMPARISON: Comparison is made with relevant prior imaging. Breast composition: The breast tissue is extremely dense, which lowers the sensitivity of mammography. FINDINGS: Benign calcifications in both breasts. No abnormal masses, suspicious calcifications, or other significant findings are identified mammographically in either breast. Procedure Note Hadley Mendoza MD - 08/23/2023 BI MAMMOGRAM SCREENING WITH TOMOSYNTHESIS WITH CAD (BILATERAL) Additional patient information: Screening. COMPARISON: Comparison is made with relevant prior imaging. Breast composition: The breast tissue is extremely dense, which lowers thesensitivity of mammography. FINDINGS: Benign calcifications in both breasts. No abnormal masses, suspicious calcifications, or other significantfindings are identified mammographically in either breast. IMPRESSION: No mammographic evidence of malignancy in either breast. Annual screening mammography is recommended. BI-RADS CATEGORY: 2 - Benign finding. The patient will be notified of the results and recommendations. Michelle Marshall MD IMG MG EXAMS Final Resul t documented in this encounter Visit Diagnoses Diagnosis Breast screening- Primary Breast screening, unspecified Breast screening Breast screening, unspecified documented in this encounter Care Teams Warehouse Order Puller Relationship Specialty Start Date End Date Michelle Marshall MD PCP - General Family Medicine 08/10/22 08/17/23 Michelle Marshall MD [address] [place] [address] PCP - General Family Medicine 08/18/23 documented as of this encounter Additional Source Comments The information contained in this document represents components of the legal health record. It is not the complete legal health record.[facility]
--- OUTSIDE RECORDS SUMMARY | 2025-08-03 13:02 | XMS_ITS | Encounter Summary ---
Author Organization [facility] Address [address] [facility] [address] [place] [address] Phone Care Team Providers Care Care Advocate Name Role Phone Christine Cruz MD Primary Care Provider Michelle Marshall MD Primary Care Provider [phone] Michelle Marshall MD Primary Care Provider Encounter Details Date Type Department Care Team (Late st Contact Info) Description 05/05/2019 Ancillary Orders Virtual Department [address] [place] [address] Gloria Mary, CAM [address] Melvin Grayson [address] [address] Breast screening Social History Tobacco Use Types [...] Description 08/07/2025 8:15 AM EST Office Visit [facility] [address] [facility] 3rd Floor, [address] [place], [place] [phone] Storm Scales, 22 [facility] [address] [place], [place] [phone] [email or web address] 08/22/2025 3:15 PM EST Office Visit [facility] Gastroenterology Clinic 10 [place] [address] Unknown, Unknown, Connie Garrido PA-C 10 [facility] 2 [place] [address] 09/04/2025 11:10 AM EST Office Visit [facility] Rheumatology [address] [place] [address] Raina Bernard MD, MPH 22 [facility], [facility] [address] [place] [address] [email or web address] documented as of this encounter Results * BI MAMMOGRAM SCREENING WITH TOMOSYNTHESIS WITH CAD (BILATERAL) (05/22/2019 12:36 PM EDT) Anatomical Region Laterality Modality Breast Left, Breast Right, Breast Bilateral Bila teral Mammography 05/22/2019 1:21 PM EDT Impressions 05/22/2019 1:23 PM EDT Stable appearance relative to prior imaging. No findings suggestive of malignancy are seen. BI-RADS CATEGORY: 2 - Benign finding. DENSITY: The breast tissue is extremely dense, an appearance which could obscure a lesion on mammography. POS - [id number] Narrative 05/22/2019 1:23 PM EDT Full-field digital mammography is obtained with computer-aided detection. Comparison with prior imaging from 04/21/2018 is made with older imaging dating back as far as 10/20/2012 also reviewed. There is extremely dense fibroglandular tissue evident in the breasts. In addition to 2-D C view imaging, tomosynthesis images are obtained in two projections of each breast. There are bilateral macrocalcifications evident along with minor vascular calcifications again noted.. No dominant soft tissue mass of concern, suspicious cluster of calcifications, significant interval skin changes, or architectural distortion is identified. Procedure Note Gregorio Lee MD - 05/22/2019 Full-field digital mammography is obtained with computer-aided detection.Comparison with prior imaging from 04/21/2018 is made with older imagingdating back as far as 10/20/2012 also reviewed. There is extremely dense fibroglandular tissue evident in the breasts. Inaddition to 2-D C view imaging, tomosynthesis images are obtained in twoprojections of each breast. There are bilateral macrocalcifications evident along with minor vascularcalcifications again noted.. No dominant soft tissue mass of concern,suspicious cluster of calcifications, significant interval skin changes,or architectural distortion is identified. IMPRESSION: Stable appearance relative to prior imaging. No findings suggestive ofmalignancy are seen. BI-RADS CATEGORY: 2 - Benign finding. DENSITY: The breast tissue is extremely dense, an appearance which couldobscure a lesion on mammography. POS - [id number] Gloria Mary [place] IMG MG EXAMS Final Result documented in this encounter Visit Diagnoses Diagnosis Breast screening Breast screening, unspecified Breast screening Breast screening, unspecified documented in this encounter Care Teams Care Advocate Relationship Specialty Start Date End Date Christine Cruz MD [address] [place] [address] PCP - General 07/13/17 08/09/22 Michelle Marshall MD [address] [place] [address] PCP - General Family Medicine 08/10/22 08/17/23 Michelle Marshall MD [address] [place] [address] PCP - General Family Medicine 08/18/23 documented as of this encounter Additional Source Comments The information contained in this document represents components of the legal health record. It is not the complete legal health record.[facility]
== END 2025-08-03 12:14 | disposition home or self-care (01) ==
PROVIDERS: PCP Family Medicine; Referring Provider Physical Medicine & Rehabilitation; Visit Provider Neurological Surgery
DX: M40.14 Other secondary kyphosis, thoracic region (principal)
CPT/HCPCS: 99204

== ENCOUNTER → 2025-08-03 11:39 | Outpatient (BNV) | payer OTHER, SELFPAY | PROVIDERS: PCP Family Medicine; Referring Provider Physical Medicine & Rehabilitation; Visit Provider Radiology Diagnostic Radiology | DX: M40.14 Other secondary kyphosis, thoracic region (principal); Z98.890 Other specified postprocedural states | CPT/HCPCS: 72070 ==

== ENCOUNTER 2025-09-14 11:27 | Outpatient (REF) | payer OTHER, SELFPAY ==
--- NOTE | ~2025-09-14 | CT_ITS ---
EXAMINATION: CT THORACIC SPINE WITHOUT CONTRAST CLINICAL INFORMATION: Other secondary kyphosis, thoracic region. COMPARISON: No prior CT. Correlation made with radiographs of the thoracic spine 08/03/2025. TECHNIQUE: Spiral CT imaging of the the thoracic spine performed in axial plane without contrast. Multiplanar reformatted images were constructed from the axial data set. This CT examination was performed using dose optimization techniques as appropriate, variously including the following: *Automated exposure control *Adjustment of mA and/or kV according to patient size (this includes techniques or standardized protocols for targeted exams where dose is matched to indication/reason for exam; i.e. extremities or head) *Use of iterative reconstruction technique FINDINGS: There is no significant scoliosis. 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 There is kyphoplasty cement within the T9 and T10 vertebral bodies. There is a moderate compression deformity of T9. There is a mild inferior endplate compression deformity of T8. There is a minimal superior endplate compression deformity of T10 as well as T11. These all appear chronic in nature. No definite acute fracture is evident. There have been laminectomies at T8, T9, and T10. There has been posterior fusion with transpedicular screws and posterior connecting rods bilaterally at T12, on the left at L1, and bilaterally at L2 (levels below L2 are not seen on this examination). The hardware appears intact without loosening evident. There has been associated facet fusion of T10-L1 bilaterally with bone grafting material which appears largely incorporated and only minimally fragmented. There is bony fusion through the disc spaces of T10 and T11. There is also partial bony fusion of the disc spaces at L1-L2, with a disc graft in place. The central canal is extremely difficult to evaluate due to streak artifact from hardware and technique, although there appears to have been good central canal decompression at T8-T9, T9-T10, T10-T11, and also with no residual central canal narrowing at T12-L2. At the mid T8 level, there is at least moderate central canal stenosis from ventral epidural calcified globular material, likely arising from the disc space of T8-T9 and representing calcified disc material. The T7-T8 level, there appears to be a right paracentral partially calcified disc extrusion which extends mildly cephalad and may be causing some degree of mass effect upon the ventral cord at this level (series 4, images [id number] -[id number]). There is no acute abnormality identified in the paravertebral soft tissues of the thoracic or lumbar spine. Extensive postoperative changes dorsally in the paraspinous soft tissues as detailed above relating to decompression and fusion. There is no aortic aneurysm. The aorta is tortuous. The heart size is normal. There are moderate coronary calcifications present. There is a small type I hernia present. 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 The imaged left kidney is unremarkable, and there is no definite adrenal mass or suspicious liver lesion identified on this exam. There is a 3 mm nodule in the medial right lower lobe (series 4, image 72). There is a 4 mm nodule in the subpleural left lower lobe (series 4, image 108). There are linear reticular changes in the lingula and bilateral lower lobes likely representing scarring or atelectasis. There are no effusions. There is apical pleural parenchymal scarring bilaterally. The central airways are patent. The esophagus is mildly patulous. CT/CT thoracic spine wo IV con IMPRESSION: 1. Extensive postoperative changes to the lower thoracic and upper lumbar spine as detailed, without definite evidence of loosening of hardware or complication. Kyphoplasty cement in T9 and T10. 2. There are chronic compression deformities of T8, T9, T10, and T11. There is no acute fracture or compression deformity identified. 3. There is a kyphotic deformity at T9, as described above. 4. There have been laminectomies at T8-T10. There has been facet fusion spanning T10-L1 with bone grafting material, which appears largely incorporated with only minor fragmentation. 5. There is a right paracentral calcified disc extrusion at T7-T8. 6. There are ventral epidural calcified/ossified foci at the mid to lower T8 level, likely extruded disc material which have calcified, and may be causing mass effect upon the cord. 7. There are numerous ancillary findings as above, including pulmonary nodules measuring up to 4 mm which are suitable for 1 year follow-up. Electronically signed by: Khang Cardoso MD 09/14/2025 12:38 PM [facility] [place]
--- OUTSIDE RECORDS SUMMARY | 2025-09-14 13:38 | XMS_ITS | Encounter Summary ---
Author Organization [facility] Address [address] [place] [address] Phone Care Team Providers Care Track Patrol Name Role Phone Michelle Marshall MD Primary Care Provider [phone] Encounter Details Date Type Department Care Team ([facility] st Contact Info) Description 03/26/2025 Procedure Pass [facility], [address] [address] Social History Tobacco Use Types Packs/Day Years [...] Care Team (Late st Contact Info) Description 09/11/2025 Procedure Pass [address] [address] 09/11/2025 Procedure Pass [address] [address] 10/08/2025 2:45 PM EST Appointment [address] [address] Michelle Marshall MD [address] [place] [address] 10/08/2025 3:15 PM EST Appointment [facility] [address] [place] [address] Michelle Marshall MD [address] [place] [address] 11/07/2025 11:00 AM EST Office Visit [facility] [address] [facility] 3rd Floor, [address] [place] [address] Saundra Rashid PA-C [address] [place] [address] 01/04/2026 10:40 AM EDT Office Visit [facility] [address] [place] [address] Raina Bernard MD, MPH [address] [facility], [address] [place] [address] 02/27/2026 9:30 AM EDT Office Visit [facility] [address] [place] [address] Connie Crabtree PA-C [address] [place] [address] documented as of this encounter Visit Diagnoses Not on filedocumented in this encounter Care Teams Track Patrol Relationship Specialty Start Date End Date Michelle Marshall MD [address] [place] [address] PCP - General Family Medicine 08/18/23 documented as of this encounter Additional Source Comments The information contained in this document represents components of the legal health record. It is not the complete legal health record.[facility]
--- OUTSIDE RECORDS SUMMARY | 2025-09-14 13:38 | XMS_ITS | Encounter Summary ---
Author Organization [facility] Address [address] [place] [address] Phone Care Team Providers Care Hog Ringer Name Role Phone Michelle Marshall MD Primary Care Provider [phone] Encounter Details Date Type Department Care Team (Late st Contact Info) Description 09/11/2025 Transcribe Orders [address] [address] Michelle Marshall MD [address] [place] [address] [phone] [email or web address] Mastodynia (Primary Dx) Social History Tobacco Use Types [...] st Contact Info) Description 09/11/2025 Procedure Pass [address] [address] 09/11/2025 Procedure Pass [address] [address] 10/08/2025 2:45 PM EST Appointment [address] [address] Michelle Marshall MD [address] [place] [address] 10/08/2025 3:15 PM EST Appointment [address] [address] Michelle Marshall MD [address] [place] [address] 11/07/2025 11:00 AM EST Office Visit [facility] [address] [place] [address] 3rd Floor, [address] [place] [address] Saundra Rashid PA-C [address] [place] [address] 01/04/2026 10:40 AM EDT Office Visit [facility] [address] [place] [address] Raina Bernard MD, MPH [address] [facility], [address] [place] [address] 02/27/2026 9:30 AM EDT Office Visit [facility] [address] [place] [address] Connie Crabtree PA-C [address] [place] [address] Scheduled Orders Name Type Priority Associated Diagnoses Orde r Schedule Mammogram Diagnostic (Left) Imaging Routine Mastodynia Expected: 09/11/2025, Expires: 09/11/2026 US Breast (Left) Imaging Routine Mastodynia Expected: 09/11/2025, Expires: 09/11/2026 documented as of this encounter Visit Diagnoses Diagnosis Mastodynia- Primary documented in this encounter Care Teams Hog Ringer Relationship Specialty Start Date End Date Michelle Marshall MD [address] [place] [address] [email or web address] PCP - General Family Medicine 08/18/23 documented as of this encounter Additional Source Comments The information contained in this document represents components of the legal health record. It is not the complete legal health record.[facility]
--- OUTSIDE RECORDS SUMMARY | 2025-09-14 13:38 | XMS_ITS | Encounter Summary ---
Author Organization [facility] Address [address] [place] [address] Phone Care Team Providers Care Production Painter Name Role Phone Michelle Marshall MD Primary Care Provider Micehlle Marshall MD Primary Care Provider Encounter Details Date Type Department Care Team (Late st Contact Info) Description 08/10/2022 Prep for Surgery [facility] [address] [place] [address] Susan Jones MD [address] [place] [address] Orthopedics & Sports Medicine, [place] [address] [email or web address] Social History Tobacco Use Types Packs/Day Years [...] st Contact Info) Description 09/11/2025 Procedure Pass [address] [address] 09/11/2025 Procedure Pass [address] [address] 10/08/2025 2:45 PM EST Appointment [address] [address] Michelle Marshall MD [address] [place] [address] 10/08/2025 3:15 PM EST Appointment [address] [address] Michelle Marshall MD [address] [place] [address] 11/07/2025 11:00 AM EST Office Visit [facility] [address] [place] [address] 3rd Floor, [address] [place] [address] Saundra Rashid PA-C [address] [place] [address] 01/04/2026 10:40 AM EDT Office Visit [facility] [address] [place] [address] Raina Bernard MD, MPH [address] [facility], [address] [place] [address] 02/27/2026 9:30 AM EDT Office Visit [facility] [address] [place] [address] Connie Crabtree PA-C [address] [place] [address] documented as of this encounter Visit Diagnoses Not on filedocumented in this encounter Care Teams Production Painter Relationship Specialty Start Date End Date Michelle Marshall MD [email or web address] PCP - General Family Medicine 08/10/22 08/17/23 Michelle Marshall MD [address] [place] [address] [email or web address] PCP - General Family Medicine 08/18/23 documented as of this encounter Additional Source Comments The information contained in this document represents components of the legal health record. It is not the complete legal health record.[facility]
--- OUTSIDE RECORDS SUMMARY | 2025-09-14 13:38 | XMS_ITS | Patient Health Record ---
Author Organization [facility] Address [address] [place] [address] Care Team Providers Care It Solutions Sales Consultant Name Role Phone RAÚL FLORENCE M.D. Primary Care Provider UnavailShweta Foley Unavailable [phone] Allergies Allergen (clinical drug ingredient) Drug/Non Drug [...] an empty stomach Orally Once a day [facility]- 08/18/2011 Active EPINEPHrine 0.3 MG/0.3ML as directed Inj ection As needed Active amLODIPine Besylate 5 MG 1 1/2 tablets ( 7.5mg) Orally Once a day Active Almotriptan Malate 12.5 MG 1 tab Orally as needed for h/a Active Albuterol Sulfate 108 (90 Base) MCG/ACT 1 puff as needed Inhalation every 6 hrs 04/28/2021 Active Amitriptyline HCl 10 MG 1 tablet at bedt jadyen Orally Once a day; Duration: 30 day(s) [...] Status Risk Notes Problem Postmenopausal atrophic vaginitis (43887837) Postmenopausal atrophic vaginitis (N95.2) Active confirmed Problem Age-related osteoporosis (754772501) Age-related osteoporosis without current pathological fracture (M81.0) Active confirmed Problem Essential hypertension (89982325) Essential (primary) hypertension (I10) Active confirmed Problem Hypothyroidism (57536378) Hypothyroidism, unspecified (E03.9) Active confirmed Problem Hyperlipidemia (50592356) Hyperlipidemia, unspecified (E78.5) Active confirmed Problem Non-toxic uninodular goiter (529312683) Nontoxic uninodular goiter (241.0) Active confirmed Major Problem Menopausal symptom (73551883) Symptomatic menopausal or female climacteric states (627.2) Active confirmed Major Problem Rheumatoid arthritis (66152637) Rheumatoid arthritis (714.0) Active confirmed Major Plan Of Treatment Pending Test Test Name Order Date DEXA 12/03/2014 MAMMOGRAM, SCREENING 04/28/2021 MAMMOGRAM, SCREENING 12/03/2014 MM Digital Mammo Screening 04/19/2018 MM Digital Mammo Screening 04/28/2021 Insurance Providers Payer Name Payer Address Payer Phone Subscriber Number Group Number Insured Name Patient Relationship to Insured Coverage Start Date Coverage End Date [facility] [address] [place], [place] [id number] KAREN BYRNE Spouse - patient is the [...]
--- OUTSIDE RECORDS SUMMARY | 2025-09-14 13:38 | XMS_ITS | Patient Health Record ---
Author Organization [facility] Address [address] [facility] [address] [place] [address] Care Team Providers Care Machine Splitter Name Role Phone Christine Cruz Primary Care [...] Problem Acquired hammer toe of right foot (1386470306373 105) Hammer toe of right foot (M20.41) Active confirmed Plan Of Treatment Pending Test Test Name Order Date X ray : Foot, right 3v 12/03/2020 X ray : Foot, right 3v 12/31/2020 Insurance Providers Payer Name Payer Address Payer Phone Subscriber Number Group Number Insured Name Patient Relationship to Insured Coverage Start Date Coverage End Date [facility] [place] [phone] [id number] Yohana Machuca Self - patient is the [...]
--- OUTSIDE RECORDS SUMMARY | 2025-09-14 13:38 | XMS_ITS | Encounter Summary ---
Author Organization [facility] Address [address] [place] [address] Phone Care Team Providers Care Head Mixer Name Role Phone Michelle Marshall MD Primary Care Provider Encounter Details Date Type Department Care Team (Late Contact Info) Description 12/21/2023 Procedure Pass [facility]oscopy Admitting Dept Virtual Department [address] [place] [address] Social History Tobacco Use Types Packs/Day Years [...] Department Care Team (Late Contact Info) Description 09/11/2025 Procedure Pass [address] [address] 09/11/2025 Procedure Pass [address] [address] 10/08/2025 2:45 PM EST Appointment [address] [address] Michelle Marshall MD [address] [place] [address] 10/08/2025 3:15 PM EST Appointment [address] [address] Michelle Marshall MD [address] [place] [address] 11/07/2025 11:00 AM EST Office Visit [facility] [address] [facility] 3rd Floor, [address] [place] [address] Saundra Rashid PA-C [address] [place] [address] 01/04/2026 10:40 AM EDT Office Visit [facility] [address] [place] [address] Raina Bernard MD, MPH [address] [facility], [address] [place] [address] 02/27/2026 9:30 AM EDT Office Visit [facility] Gastroenterology Clinic [address] [place] [address] Connie Crabtree PA-C [address] [place] [address] [email or web address] documented as of this encounter Visit Diagnoses Not on filedocumented in this encounter Care Teams Head Mixer Relationship Specialty Start Date End Date Michelle Marshall MD [address] [place] [address] [email or web address] PCP - General Family Medicine 08/18/23 documented as of this encounter Additional Source Comments The information contained in this document represents components of the legal health record. It is not the complete legal health record.[facility]
--- OUTSIDE RECORDS SUMMARY | 2025-09-14 13:38 | XMS_ITS | Encounter Summary ---
Author Organization [facility] Address [address] [place] [address] Phone Care Team Providers Care Base Filler Operator Name Role Phone Christine Cruz MD Primary Care Provider [phone] Michelle Marshall MD Primary Care Provider [phone] Michelle Marshall MD Primary Care Provider [phone] Encounter Details Date Type Department Care Team (Late st Contact Info) Description 05/05/2022 Procedure Pass [address] [address] Social History Tobacco Use Types Packs/Day Years [...] st Contact Info) Description 09/11/2025 Procedure Pass [address] [address] 09/11/2025 Procedure Pass [address] [address] 10/08/2025 2:45 PM EST Appointment [address] [address] Michelle Marshall MD [address] [place] [address] 10/08/2025 3:15 PM EST Appointment [address] [address] Michelle Marshall MD [address] [place] [address] 11/07/2025 11:00 AM EST Office Visit [facility] [address] [place] [address] [address]rd Floor, [address] [place] [address] Saundra Rashid PA-C [address] [place] [address] 01/04/2026 10:40 AM EDT Office Visit [facility] [address] [place] [address] Raina Bernard MD, MPH [address] [facility], [address] [place] [address] 02/27/2026 9:30 AM EDT Office Visit [facility] [address] [place] [address] Connie Crabtree PA-C [address] [place] [address] documented as of this encounter Visit Diagnoses Not on filedocumented in this encounter Care Teams Base Filler Operator Relationship Specialty Start Date End Date Christine Cruz MD [address] [place] [address] PCP - General 07/13/17 08/09/22 Michelle Marshall MD [address] [place] [address] [email or web address] PCP - General Family Medicine 08/10/22 08/17/23 Michelle Marshall MD [address] [place] [address] [email or web address] PCP - General Family Medicine 08/18/23 documented as of this encounter Additional Source Comments The information contained in this document represents components of the legal health record. It is not the complete legal health record.[facility]
--- OUTSIDE RECORDS SUMMARY | 2025-09-14 13:38 | XMS_ITS | Clinical Summary ---
Author Organization [facility] ity Address [address] [place] [address] Care Team Providers Care Oil Dipper Name Role Phone Michelle Marshall MD Primary Care Provider [phone]- [phone] Surgical History Surgery Date Site/Laterality Comments HYSTERECTOMY PROCEDURE: HISTORICAL TOTAL HYSTERECTOMY WITH BSO NECK SURGERY PROCEDURE: HISTORICAL NECK SURGERY; COMMENT: partial thyroidectomy, benign HAND SURGERY PROCEDURE: HISTORICAL HAND SURGERY; COMMENT: thumb arthropalsty BREAST BIOPSY PROCEDURE: PA BIOPSY BREAST OPEN INCISIONAL; COMMENT: Benign OTHER SURGICAL HISTORY 2008 PROCEDURE: LUMBAR SPINE FUSION, LAT TRANSVERSE; COMMENT: L4-L5 COLONOSCOPY 11/04/12 [facility] PROCEDURE: HISTORICAL COLONOSCOPY; COMMENT: normal; repeat in 5 yrs under propofol Medical History Medical History Date Comments RA (rheumatoid arthritis) ([facility] [place]/[facility] V24, [facility] V28) DX:RA (rheumatoid arthritis) ([facility]) Hypothyroid DX:Hypothyroid Hyperlipidemia DX:Hyperlipidemi a 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 D X:Osteoarthritis of lumbar spine Osteopenia 11/26/2009 DX:Osteopenia Fracture of foot 06/03/2010 DX:Fracture of foot Family history of breast cancer DX:Family history of breast cancer; COMMENT: Pt MyRisk negative 02/2015; low risk Migraine DX:Migraine Thoracic compression fractur e ([facility] V24, [facility] V28) 05/18/2016 DX:Thoracic compression fra cture ([facility]); COMMENT: T9, T10, vertebroplasty Thoracic spinal stenosis 06/15/2016 DX:Thor acic spinal stenosis Osteomyelitis of thoracic sp ine ([facility] V24, [facility] V28) 07/21/2018 DX:Osteomyelitis of thoraci c spine [...] be classified as having peripheral osteoporosis. [facility] Department of Internal Medicine recommends using National [...] of fracture risk by FRAX. Procedure Note Nicholsa Birmingham - 09/15/2022 BONE DENSITY Left wrist [...] on the World Health Organization criteria, Yohana Barcenasould be classified as having peripheral osteoporosis. [facility] Department of Internal Medicine recommendsusing National Osteoporosis [...] Recently Relevant to Health Maintenance Care Teams Oil Dipper Relationship Specialty Start Date End Date Michelle Marshall MD [address] [place] [phone] PCP - General 02/18/23
--- OUTSIDE RECORDS SUMMARY | 2025-09-14 13:38 | XMS_ITS | Encounter Summary ---
Author Organization [facility] Address [address] [place] [address] Phone Care Team Providers Care College Or University Registrar Name Role Phone Michelle Marshall MD Primary Care Provider [phone]- [phone] Encounter Details Date Type Department Care Team (Late st Contact Info) Description 09/04/2025 Telephone [facility] [address] [place] [address] Raina Bernard MD, MPH [address] [facility], [address] [place] [address] [email or web address] Social History Tobacco Use Types Packs/Day Years [...] PM EDT documented as of this encounter Progress Notes * Mony Hough LPN - 09/04/2025 1:25 PM EST Orders faxed * Raina Bernard MD, MPH - 09/04/2025 12:24 PM EST Lab orders signed for fax ty * Mony Hough LPN - 09/04/2025 12:12 PM EST Phone [place] to [facility] [place] need orders and they can be faxed to [phone] Orders pended for signature then will fax * Raina Bernard MD, MPH - 09/04/2025 11:24 AM EST Pls contact [facility] [place] to request add on of AST and ALT to labs drawn yesterday; dx is leflunomide monitoring ty documented in this encounter Plan of Treatment Upcoming Encounters Date Type Department Care Team (Late st Contact Info) Description 09/11/2025 Procedure [address] [address] 09/11/2025 Procedure Pass [address] [address] 10/08/2025 2:45 PM EST Appointment [address] [address] Michelle Marshall MD [address] [place] [address] 10/08/2025 3:15 PM EST Appointment [address] [address] Michelle Marshall MD [address] [place] [address] 11/07/2025 11:00 AM EST Office Visit [facility] [address] [facility] 3rd Floor, [address] [place] [address] Saundra Rashid PA-C [address] [place] [address] 01/04/2026 10:40 AM EDT Office Visit [facility] [address] [place] [address] Raina Bernard MD, MPH [address] [facility], [address] [place] [address] 02/27/2026 9:30 AM EDT Office Visit [facility] [address] [place] [address] Connie Crabtree PA-C [address] [address] [email or web address] documented as of this encounter Results * Aspartate Aminotransferase (AST) (09/03/2025 2:55 PM EST) Blood (Blood) us Raina Bernard MD, MPH LAB BLOOD BKR ORDERABLES Final Result EXTERNAL NON-INTERFACED REF LAB * Alanine Aminotransferase (ALT) (09/03/2025 2:55 PM EST) Blood (Blood) us Raina Bernard MD, MPH LAB BLOOD BKR ORDERABLES Final Result EXTERNAL NON-INTERFACED REF LAB documented in this encounter Visit Diagnoses Diagnosis Encounter for monitoring leflunomide therapy- Primary documented in this encounter Care Teams College Or University Registrar Relationship Specialty Start Date End Date Michelle Marshall MD [address] [place] [address] [email or web address] PCP - General Family Medicine 08/18/23 documented as of this encounter Additional Source Comments The information contained in this document represents components of the legal health record. It is not the complete legal health record.[facility]
--- OUTSIDE RECORDS SUMMARY | 2025-09-14 13:38 | XMS_ITS | Encounter Summary ---
Author Organization [facility] Address [address] [place] [address] Phone Care Team Providers Care Security Public Safety Officer Name Role Phone Michelle Marshall MD Primary Care Provider [phone]- [phone] Michelle Marshall MD Primary Care Provider Encounter Details Date Type Department Care Team (Late st Contact Info) Description 09/09/2022 Procedure Pass [place] Admitting Dept - Virtual Department [address] [place] [address] Social History Tobacco Use Types Packs/Day Years [...] st Contact Info) Description 09/11/2025 Procedure Pass [address] [address] 09/11/2025 Procedure Pass [address] [address] 10/08/2025 2:45 PM EST Appointment [address] [address] Michelle Marshall MD [address] [place] [address] 10/08/2025 3:15 PM EST Appointment [address] [address] Michelle Marshall MD [address] [place] [address] 11/07/2025 11:00 AM EST Office Visit [facility] [address] [place] [address] 3rd [facility], [address] [place] [address] Saundra Rashid PA-C [address] [place] [address] 01/04/2026 10:40 AM EDT Office Visit [facility] [address] [place] [address] Raina Bernard MD, MPH [address] [facility], [address] [place] [address] 02/27/2026 9:30 AM EDT Office Visit [facility] [address] [place] [address] Connie Crabtree PA-C [address] [place] [address] documented as of this encounter Visit Diagnoses Not on filedocumented in this encounter Care Teams Security Public Safety Officer Relationship Specialty Start Date End Date Michelle Marshall MD [email or web address] PCP - General Family Medicine 08/10/22 08/17/23 Michelle Marshall MD [address] [place] [address] [email or web address] PCP - General Family Medicine 08/18/23 documented as of this encounter Additional Source Comments The information contained in this document represents components of the legal health record. It is not the complete legal health record.[facility]
--- OUTSIDE RECORDS SUMMARY | 2025-09-14 13:38 | XMS_ITS | Encounter Summary ---
Author Organization [facility] Address [address] [place] [address] Phone Care Team Providers Care Director Of Neighborhood Service Center Name Role Phone Christine Cruz MD Primary Care Provider [phone] Michelle Marshall MD Primary Care Provider [phone] Michelle Marshall MD Primary Care Provider [phone]- [phone] Encounter Details Date Type Department Care Team (Late st Contact Info) Description 07/18/2022 Procedure Pass [place] Scan [address] [address] Social History Tobacco Use Types Packs/Day Years [...] st Contact Info) Description 09/11/2025 Procedure Pass [facility], [facility]- [address] [address] 09/11/2025 Procedure Pass [address] [address] 10/08/2025 2:45 PM EST Appointment [address] [address] Michelle Marshall MD [address] [place] [address] 10/08/2025 3:15 PM EST Appointment [address] [address] Michelle Marshall MD [address] [place] [address] 11/07/2025 11:00 AM EST Office Visit [facility] [address] [place] [address] 3rd Floor, [address] [place] [address] Saundra Rashid PA-C [address] [place] [address] 01/04/2026 10:40 AM EDT Office Visit [facility] [address] [place] [address] Raina Bernard MD, MPH 22 [facility], [address] [place] [address] 02/27/2026 9:30 AM EDT Office Visit [facility] G[facility] Clinic [address] [place] [address] Connie Crabtree PA-C [address] [place] [address] documented as of this encounter Visit Diagnoses Not on filedocumented in this encounter Care Teams Director Of Neighborhood Service Center Relationship Specialty Start Date End Date Christine Cruz MD [address] [place] [address] PCP - General 07/13/17 08/09/22 Michelle Marshall MD [address] [place] [address] [email or web address] PCP - General Family Medicine 08/10/22 08/17/23 Michelle Marshall MD [address] [place] [address] [email or web address] PCP - General Family Medicine 08/18/23 documented as of this encounter Additional Source Comments The information contained in this document represents components of the legal health record. It is not the complete legal health record.[facility]
--- OUTSIDE RECORDS SUMMARY | 2025-09-14 13:38 | XMS_ITS | Encounter Summary ---
Author Organization [facility] Address [address] [facility] [address] [place] [address] Phone Care Team Providers Care Tableau Analyst Name Role Phone Michelle Marshall MD Primary Care Provider Encounter Details Date Type Department Care Team (Latest Contact Info) Description 09/13/2023 Transcribe Orders Virtual Department [address] [place] [address] Rajani Cheatham MD [address] [place] [phone] [email or web address] Dysphagia, unspecified type (Primary Dx) Social [...] st Contact Info) Description 09/11/2025 Procedure Pass [address] [address] 09/11/2025 Procedure Pass [address] [address] 10/08/2025 2:45 PM EST Appointment [address] [address] Michelle Marshall MD [address] [place] [address] 10/08/2025 3:15 PM EST Appointment [address] [address] Michelle Marshall MD [address] [place] [address] 11/07/2025 11:00 AM EST Office Visit [facility] [address] [place] [address] 3rd Floor, [address] [place] [address] Saundra Rashid PA-C [address] [place] [address] 01/04/2026 10:40 AM EDT Office Visit [facility] [address] [place] [address] Raina Bernard MD, MPH [address] [place] [address], [address] [place] [address] 02/27/2026 9:30 AM EDT Office Visit [facility] 10 [place] [address] Connie Crabtree PA-C [address] [address] [email or web address] documented as of this encounter Results * [...] originally createdby [employer]. Rajani Cheatham MD [facility] Final Resul t documented in this encounter Visit Diagnoses Diagnosis Dysphagia, unspecified type- Primary Dysphagia, unspecified type documented in this encounter Care Teams Tableau Analyst Relationship Specialty Start Date End Date Michelle Marshall MD [address] [place] [address] [email or web address] PCP - General Family Medicine 08/18/23 documented as of this encounter Additional Source Comments The information contained in this document represents components of the legal health record. It is not the complete legal health record.[facility]
--- OUTSIDE RECORDS SUMMARY | 2025-09-14 13:38 | XMS_ITS | Encounter Summary ---
Author Organization [facility] Address [address] [place] [address] Phone Care Team Providers Care Machine Technician Name Role Phone Michelle Marshall MD Primary Care Provider [phone]- [phone] Encounter Details Date Type Department Care Team (Late st Contact Info) Description 08/07/2025 Procedure Pass [facility] [address] [place] [address] Social History Tobacco Use Types Packs/Day Years [...] st Contact Info) Description 09/11/2025 Procedure Pass [address] [address] 09/11/2025 Procedure Pass [address] [address] 10/08/2025 2:45 PM EST Appointment [address] [address] Michelle Marshall MD [address] [place] [address] 10/08/2025 3:15 PM EST Appointment [facility], [facility] [place] [address] [place] [address] Michelle Marshall MD [address] [place] [address] 11/07/2025 11:00 AM EST Office Visit [facility] [address] [facility] 3rd Floor, [address] [place] [address] Saundra Rashid PA-C [address] [place] [address] 01/04/2026 10:40 AM EDT Office Visit [facility] [address] [place] [address] Raina Bernard MD, MPH [address] [facility], [address] [place] [address] 02/27/2026 9:30 AM EDT Office Visit [facility] Gastroenterology Clinic [address] [place] [address] Connie Crabtree PA-C [address] [place] [address] documented as of this encounter Visit Diagnoses Not on filedocumented in this encounter Care Teams Machine Technician Relationship Specialty Start Date End Date Michelle Marshall MD [address] [place] [address] PCP - General Family Medicine 08/18/23 documented as of this encounter Additional Source Comments The information contained in this document represents components of the legal health record. It is not the complete legal health record.[facility]
--- OUTSIDE RECORDS SUMMARY | 2025-09-14 13:38 | XMS_ITS | Encounter Summary ---
Author Organization [facility] Address [address] [place] [address] Phone Care Team Providers Care Esthetician/Spa Coordinator Name Role Phone Michelle Marshall MD Primary Care Provider [phone]- [phone] Encounter Details Date Type Department Care Team (Latest Contact Info) Description 10/01/2023 Ancillary Orders [address] [address] Joanna Gomes MD [address] [place] [address] [facility], [place], [place] [phone] [email or web address] Osteoarthritis of both hips, unspecified osteoarthritis [...] st Contact Info) Description 09/11/2025 Procedure Pass [address] [address] 09/11/2025 Procedure Pass [address] [address] 10/08/2025 2:45 PM EST Appointment [address] [address] Michelle Marshall MD [address] [place] [address] 10/08/2025 3:15 PM EST Appointment [address] [address] Michelle Marshall MD [address] [place] [address] 11/07/2025 11:00 AM EST Office Visit [facility] [address] [place] [address] 3rd Floor, [address] [place] [address] Saundra Rashid PA-C [address] [place] [address] 01/04/2026 10:40 AM EDT Office Visit [facility] [address] [place] [address] Raina Bernard MD, MPH [address] [facility], [address] [place] [address] 02/27/2026 9:30 AM EDT Office Visit [facility]enterology [facility] 10 [place] [address] Connie Crabtree PA-C [address] [address] [email or web address] Pending Results Name Type Priority Associated Diagnoses [...] Primary documented in this encounter Care Teams Esthetician/Spa Coordinator Relationship Specialty Start Date End Date Michelle Marshall MD [address] [place] [address] [email or web address] PCP - General Family Medicine 08/18/23 documented as of this encounter Additional Source Comments The information contained in this document represents components of the legal health record. It is not the complete legal health record.[facility]
--- OUTSIDE RECORDS SUMMARY | 2025-09-14 13:38 | XMS_ITS | Encounter Summary ---
Author Organization [facility] Address [address] [place] [address] Phone Care Team Providers Care Harbor Engineer Name Role Phone Michelle Marshall MD Primary Care Provider [phone]- [phone] Encounter Details Date Type Department Care Team ([facility] Contact Info) Description 07/26/2024 Procedure Pass [place] Admitting Dept - Virtual Department [address] [place] [address] Social History Tobacco Use Types Packs/Day Years [...] st Contact Info) Description 09/11/2025 Procedure Pass [address] [address] 09/11/2025 Procedure Pass [address] [address] 10/08/2025 2:45 PM EST Appointment [address] [address] Michelle Marshall MD [address] [place] [address] 10/08/2025 3:15 PM EST Appointment [facility] [address] [place] [address] Michelle Marshall MD [address] [place] [address] 11/07/2025 11:00 AM EST Office Visit [facility] [address] [place] [address] 3rd Floor, [address] [place] [address] Saundra Rashid PA-C [address] [place] [address] 01/04/2026 10:40 AM EDT Office Visit [facility] [address] [place] [address] Raina Bernard MD, MPH [address] [facility], [address] [place] [address] 02/27/2026 9:30 AM EDT Office Visit [facility] Gastroenterology Clinic [address] [place] [address] Connie Crabtree PA-C [address] [place] [address] documented as of this encounter Visit Diagnoses Not on filedocumented in this encounter Care Teams Harbor Engineer Relationship Specialty Start Date End Date Michelle Marshall MD [address] [place] [address] PCP - General Family Medicine 08/18/23 documented as of this encounter Additional Source Comments The information contained in this document represents components of the legal health record. It is not the complete legal health record.[facility]
--- OUTSIDE RECORDS SUMMARY | 2025-09-14 13:38 | XMS_ITS | Encounter Summary ---
Author Organization [facility] Address [address] [facility] [address] [place] [address] Phone Care Team Providers Care Sap Solution Manager Consultant Name Role Phone Christine Cruz MD Primary Care Provider Michelle Marshall MD Primary Care Provider [phone] Michelle Marshall MD Primary Care Provider Encounter Details Date Type Department Care Team (Late st Contact Info) Description 05/05/2022 Transcribe Orders Virtual Department [address] [place] [address] Christine Cruz MD [address] [place] [address] Encounter for screening mammogram for malignant neoplasm [...] st Contact Info) Description 09/11/2025 Procedure Pass [facility] [address] 09/11/2025 Procedure Pass [address] [address] 10/08/2025 2:45 PM EST Appointment [address] [address] Michelle Marshall MD [address] [place] [address] 10/08/2025 3:15 PM EST Appointment [address] [address] Michelle Marshall MD [address] [place] [address] 11/07/2025 11:00 AM EST Office Visit [facility] [address] [place] [address] [address] [facility], [address] [place] [address] Saundra Rashid PA-C [address] [place] [address] 01/04/2026 10:40 AM EDT Office Visit [facility] Rhe[facility]ology [facility] [address] [place] [address] Raina Bernard MD, MPH [address] [place] [facility], [address] [place] [address] 02/27/2026 9:30 AM EDT Office Visit [facility] Gastroenterology Clinic [address] [place] [address] Connie Crabtree PA-C [address] [place] [address] [email or web address] documented as of this encounter Results * [...] breast documented in this encounter Care Teams Sap Solution Manager Consultant Relationship Specialty Start Date End Date Christine Cruz MD [address] [place], [place] PCP - General 07/13/17 08/09/22 Michelle Marshall MD [address] [place] PCP - General Family Medicine 08/10/22 08/17/23 Michelle Marshall MD [address] [place] [address] PCP - General Family Medicine 08/18/23 documented as of this encounter Additional Source Comments The information contained in this document represents components of the legal health record. It is not the complete legal health record.[facility]
--- OUTSIDE RECORDS SUMMARY | 2025-09-14 13:38 | XMS_ITS | Encounter Summary ---
Author Organization [facility] Address [address] [facility] [place] [address] Phone Care Team Providers Care Merchandise Pickup/Receiving Associate Name Role Phone Michelle Marshall MD Primary Care Provider Encounter Details Date Type Department Care Team (Late st Contact Info) Description 08/22/2023 Procedure Pass [facility], Ct Scan - [address] [address] Social History Tobacco Use Types Packs/Day Years [...] Contact Info) Description 09/11/2025 Procedure Pass [address] [address] 09/11/[address] [address] 10/08/2025 2:45 PM EST Appointment [address] [address] Michelle Marshall MD [address] [place] [address] 10/08/2025 3:15 PM EST Appointment [address] [address] Michelle Marshall MD [address] [place] [address] 11/07/2025 11:00 AM EST Office Visit [facility] [address] [place] [address] [address]rd Floor, [address] [place] [address] Saundra Rashid PA-C [address] [place] [address] 01/04/2026 10:40 AM EDT Office Visit [facility] [address] [place] [address] Raina Bernard MD, MPH [address] [facility], [address] [place] [address] 02/27/2026 9:30 AM EDT Office Visit [facility] [address] [place] [address] Connie Crabtree PA-C [address] [place] [address] documented as of this encounter Visit Diagnoses Not on filedocumented in this encounter Care Teams Merchandise Pickup/Receiving Associate Relationship Specialty Start Date End Date Michelle Marshall MD [address] [place] [address] [email or web address] PCP - General Family Medicine 08/18/23 documented as of this encounter Additional Source Comments The information contained in this document represents components of the legal health record. It is not the complete legal health record.[facility]
--- OUTSIDE RECORDS SUMMARY | 2025-09-14 13:38 | XMS_ITS | Encounter Summary ---
Author Organization [facility] Address [address] [facility] [address] [place] [address] Phone Care Team Providers Care Quality Assurance Project Manager Name Role Phone Michelle Marshall MD Primary Care Provider [phone] Encounter Details Date Type Department Care Team (Late st Contact Info) Description 09/13/2025 Orders Only [facility] [address] [place] [address] Madiha Abdul HI [address] [place] [address] [email or web address] Encounter for monitoring leflunomide therapy Social History Tobacco Use Types Packs/Day Years [...] st Contact Info) Description 09/11/2025 Procedure Pass [address] [address] 09/11/2025 Procedure Pass [address] [address] 10/08/2025 2:45 PM EST Appointment [address] [address] Michelle Marshall MD [address] [place] [address] 10/08/2025 3:15 PM EST Appointment [address] [address] Michelle Marshall MD [address] [place] [address] 11/07/2025 11:00 AM EST Office Visit [facility] [address] [place] [address] [address]rd Floor, [address] [place] [address] Saundra Rashid PA-C [address] [place] [address] 01/04/2026 10:40 AM EDT Office Visit [facility] [address] [place] [address] Raina Bernard MD, MPH [address] [facility] [address] [place] [address] 02/27/2026 9:30 AM EDT Office Visit [facility] [address] [place] [address] Connie Crabtree PA-C [address] [place] [address] documented as of this encounter Procedures Procedure Name Priority Date/Time Associated Diagnosis Comments ASPARTATE AMINOTRANSFERASE (AST) Routine 09/03/2025 2:55 PM EST Encounter for monitoring leflunomide therapy ALANINE AMINOTRANSFERASE (ALT) Routine 09/03/2025 2:55 PM EST Encounter for monitoring leflunomide therapy documented in this encounter Results * Aspartate Aminotransferase (AST) (09/03/2025 2:55 PM EST) Blood (Blood) Raina Bernard MD, MPH LAB BLOOD BKR ORDERABLES Final Result Performing Organization Address [facility] Co de Phone Number EXTERNAL NON-INTERFACED REF LAB * Alanine Aminotransferase (ALT) (09/03/2025 2:55 PM EST) Blood (Blood) Result [facility] Raina Bernard MD, MPH LAB BLOOD BKR ORDERABLES Final Result Performing Organization Address [facility] Co de Phone Number EXTERNAL NON-INTERFACED REF LAB documented in this encounter Visit Diagnoses Diagnosis Encounter for monitoring leflunomide therapy documented in this encounter Care Teams Quality Assurance Project Manager Relationship Specialty Start Date End Date Michelle Marshall MD [address] [place] [address] [email or web address] PCP - General Family Medicine 08/18/23 documented as of this encounter Additional Source Comments The information contained in this document represents components of the legal health record. It is not the complete legal health record.[facility]
--- OUTSIDE RECORDS SUMMARY | 2025-09-14 13:38 | XMS_ITS | Encounter Summary ---
Author Organization [facility] Address [address] [facility] [address] [place] [address] Phone Care Team Providers Care Orchard Manager Name Role Phone Michelle Marshall MD Primary Care Provider [phone]- [phone] Encounter Details Date Type Department Care Team (Latest Contact Info) Description 12/13/2023 Ancillary Orders [facility] [address] [place] [address] Raina Bernard MD, MPH [address] [facility], [address] [place] [address] [email or web address] Shoulder joint stiffness, bilateral (Primary Dx) Social [...] st Contact Info) Description 09/11/2025 Procedure Pass [address] [address] 09/11/2025 Procedure Pass [address] [address] 10/08/2025 2:45 PM EST Appointment [address] [address] Michelle Marshall MD [address] [place] [address] 10/08/2025 3:15 PM EST Appointment [address] [address] Michelle Marshall MD [address] [place] [address] 11/07/2025 11:00 AM EST Office Visit [facility] [address] [place] [address] [address] Floor, [address] [place] [address] Saundra Rashid PA-C [address] [place] [address] 01/04/2026 10:40 AM EDT Office Visit [facility] [address] [place] [address] Raina Bernard MD, MPH [address] [facility], [address] [place] [address] 02/27/2026 9:30 AM EDT Office Visit [facility] [address] [place] [address] Connie Crabtree PA-C [address] [address] [email or web address] documented as of this encounter Results * [...] joints.Evidence of calcific tendinitis on the right. us Raina Bernard MD, MPH IMG XR UPPER EXTREMITY F inal Result documented in this encounter Visit Diagnoses Diagnosis Shoulder joint stiffness, bilateral Shoulder joint stiffness, bilateral- Primary documented in this encounter Care Teams Orchard Manager Relationship Specialty Start Date End Date Michelle Marshall MD [address] [place] [address] [email or web address] PCP - General Family Medicine 08/18/23 documented as of this encounter Additional Source Comments The information contained in this document represents components of the legal health record. It is not the complete legal health record.[facility]
--- OUTSIDE RECORDS SUMMARY | 2025-09-14 13:38 | XMS_ITS | Clinical Summary ---
Author Organization [facility] Address [address] [facility] [address] [place] [address] Phone Care Team Providers Care Turbine Operator Name Role Phone Michelle Marshall MD Primary Care Provider [phone] Allergies Active Allergy Reactions Criticality Noted Date Comments Adhesive 07/19/2024 Aspirin Anaphylaxis High 06/10/2018 Buprenorphine Nausea and/or Vomiting 01/26/2022 Tried the patch and had severe n/v Hydroxychloroquine 08/28/2024 Maculopathy by 05/2024 VFT Nsaids (Non-Steroidal Anti-Inflammatory Drug) Anaphylaxis High 06/10/2018 Oxycodone Nausea and/or Vomiting 08/28/2024 [place] Other (See Comments) 06/10/2018 Chest pain Medications amLODIPine (NORVASC) 10 MG tablet Take 10 mg by mouth daily. Active cyclobenzaprin e (FLEXERIL) 5 MG tablet Take 5 mg [...] times a day. Take two tablets Active cholecalcifero l (VITAMIN D3) 25 MCG (1,000 unit) tablet Take 1,000 Units by mouth daily. Active EPINEPHrine 0.15 mg/0.15 mL auto-injector Inject 0.15 mg into the muscle. Active metoprolol succinate (TOPROL-XL) 25 MG 24 hr tablet Take 25 mg by mouth daily. 07/23/20 Active EPINEPHrine 0.3 mg/0.3 mL auto-injector Inject 0.3 mg into the muscle once as needed for anaphylaxis . 01/31/20 Active famotidine (PEPCID) 40 MG tablet Take 40 mg by mouth daily. Active telmisartan (MICARDIS) 20 MG tablet 07/30/20 Active leflunomide (ARAVA) 20 MG tabletIndicati ons:Seronegati ve rheumatoid arthritis Take 1 tablet (20 mg total) by mouth daily. 90 tablet 04/30/20 025 Discontinued leflunomide (ARAVA) 20 MG tabletIndicati ons:Seronegati ve rheumatoid arthritis TAKE 1 TABLET BY MOUTH DAILY 90 tablet 08/21/20 025 Discontinued(In effective) Hospital, Clinic, or Other Facility Administered Medication Ordered Dose Route Frequency Start Date End Date Status triamcinolone acetonide (KENALOG-40) 40 mg/mL injection 80 mgIndications:Osteoarthriti s of right knee, unspecified osteoarthritis type 80 mg IAtc Once 09/04/2025 09/04/2025 Ended Active Problems Problem Noted Date Diagnosed Date Left-sided chest pain 08/07/2025 Cardiac murmur, unspecified 08/07/2025 Palpitations 08/07/2025 Assessment & Plan (08/07/2025 8:21 AM EST): She has been getting a lot of palpitations I have ordered a 7-day MCT monitor and an echocardiogram Rotator cuff tendonitis, left 04/30/2025 Overview (09/04/2025): Local steroid injection 04/2025 Assessment & Plan (09/04/2025 1:25 PM EST): Range of motion improved though pain persists since local steroid injection; patient declined formal PT referral today Assessment & Plan (04/30/2025 3:55 PM EDT): Local steroid injection today as detailed in procedure note Osteoarthritis 07/27/2024 Aftercare following right hip joint replacement surgery 07/26/2024 Non-toxic uninodular goiter 06/07/2024 Chronic pain 06/07/2024 Osteoarthritis of right knee 04/18/2024 Overview (09/04/2025): Intra-articular steroid injection 03/2024 and 04/2025; 08/2025 Assessment & Plan (09/04/2025 1:24 PM EST): repeat intra-articular steroid injection today as detailed in procedure note Assessment & Plan (04/30/2025 3:55 PM EDT): [...] will seek input from pharmacist and possibly chili pepper grinder given her h/o anaphylaxis with ibuprofen. Assessment [...] acid Sep 2017 - ? 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 CMC arthroplasty on the right ~ 15 yrs ago was very helpful Seronegative rheumatoid arthritis 04/04/2022 Overview (09/04/2025): Seronegative rheumatoid arthritis; stopped etanercept and methotrexate prior to 2004 due to concern for AEs - 2 siblings with lymphoma Etanercept not effective per patient report RF and anti-CCP both neg 01/2022 Plain films bl hands 01/2022 - PIP and DIP involvement favor severe OA > rheumatoid arthritis Dc leflunomide 11/2022; resumed 08/2024-08/2025 Dc hydroxychloroquine 05/2024 due to e/o maculopathy; no significant symptomatic worsening as of 08/28/24 Assessment & Plan (09/04/2025 1:29 PM EST): Trial off leflunomide given lack of clear benefit; we discussed potential use of biologics other than anti-TNF agents though her advanced age does correlate with an increase of biologic risks. Unfortunately, in the context of medication history to date as well as documented ibuprofen allergy, I have no other rheumatology- specific interventions to offer this patient. Assessment & Plan (04/30/2025 3:56 PM EDT): [...] nausea Stage 3 chronic kidney disease 08/31/2019 Assessment & Plan (08/07/2025 8:22 AM EST): Present but stable Gastroesophageal reflux disease 04/14/2018 Assessment & Plan (08/27/2025 7:23 AM EST): Assessment & Plan 1. Dysphagia: -We reviewed the findings of her EGD in detail - Reports infrequent difficulty swallowing, particularly with foods like bagels and egg sandwiches, and occasional regurgitation. She does not feel like this is frequent or severe enough to warrant a repeat dilation. She knows to chew her food thoroughly, eat slowly, and take a sip of water prior to eating dry foods. - No associated heartburn or lower GI symptoms. - Continue taking famotidine. - Carry Tums for immediate relief if needed. - Contact the office immediately if symptoms worsen. 2. H pylori infection - Eradicated with BMT regimen, confirmatory breath test negative. 3. Chest pain: - Undergoing monitoring and scheduled for an echocardiogram. - Differential diagnosis includes cardiac and musculoskeletal causes. - Follow-up with boiler cleaner as planned. 4. Thoracic back pain: - Follow-up with occupancy specialist as planned. Follow-up: 01/2026. Essential hypertension 11/06/2016 Assessment & Plan (08/07/2025 8:21 AM EST): Well-controlled to the guidelines Hyperlipidemia 02/22/2009 Resolved Problems Problem Noted Date Diagnosed Date Resolved Date Arthritis of right hip 01/11/202407/28 Assessment & Plan (04/18/2024 1:33 PM EDT): KIM planned 06/2024 Encounters Date Type Department Care Team Description 09/13/2025 Orders Only [facility] Rheumatology [address] [place] [address] Madiha Abdul MA Encounter for monitoring leflunomide therapy 09/11/2025 Transcribe Orders [address] [address] Michelle Marshall MD Mastodynia (Primary Dx) 09/04/2025 11:10 AM EST Office Visit [facility] Rheumatology [address] [place] [address] Raina Bernard MD, MPH Seronegative rheumatoid arthritis (Primary Dx); Osteoarthritis of right knee, unspecified osteoarthritis type; Rotator cuff tendonitis, left 09/04/2025 Telephone [facility] Rheumatology [address] [place] [address] Raina Bernard MD, MPH 08/27/2025 1:35 PM EST - 08/27/2025 11:59 PM EST Hospital Encounter [facility] [address] [place] [address] Arcoleo, Storm A, DO Discharge Disposition: Home or Self Care 08/22/2025 3:15 PM EST Office Visit [facility] [address] [place] [address] Unknown, Unknown, Connie Garrido PA-C Gastroesophageal reflux disease with esophagitis without hemorrhage (Primary Dx); Esophageal dysphagia 08/20/2025 Refill [facility] [address] [place] [address] Raina Bernard MD, MPH Medication Refill 08/17/2025 10:18 AM EST - 08/17/2025 11:59 PM EST Hospital Encounter [facility] [address] [place] [address] Storm Scales, Discharge Disposition: Home or Self Care 08/07/2025 8:15 AM EST Office Visit [facility] [address], [address] [place] [address] Storm Scales DO Left-sided chest pain (Primary Dx); Cardiac murmur, unspecified; Palpitations; Essential hypertension; Primary osteoarthritis of first carpometacarpal joint of left hand; Stage 3a chronic kidney disease 08/07/2025 Procedure Pass [facility] [address] [place] [address] 08/07/2025 Procedure Pass [facility] [address] [place] [address] 07/24/2025 Transcribe Orders [facility] [address], [address] [place] [address] Michelle Marshall MD Left-sided chest pain (Primary Dx) from Last 3 Months Family History Medical [...] Sign Reading Time Taken Comments Blood Pressure 114/72 09/04/2025 10:51 AM EST Pulse 97 09/04/2025 10:51 AM EST Temperature 36.2 C (97.2 F) 02/27/2025 1:07 PM EDT Respiratory Rate 20 02/27/2025 1:22 PM EDT Oxygen Saturation 98% 09/04/2025 10:51 AM EST Inhaled Oxygen Concentration - - Weight 64 kg (141 lb) 09/04/2025 10:51 AM EST wi th shoes Height 165.1 cm (5' 5 ) 09/04/2025 10:51 AM EST Body Mass Index 23.46 09/04/2025 10:51 AM EST Plan of Treatment Upcoming Encounters Date Type Department Care Team (Late st Contact Info) Description 09/11/2025 Procedure Pass [address] [address] 09/11/[address] [address] 10/08/2025 2:45 PM EST Appointment [address] [address] Michelle Marshall MD [address] [place] [address] 10/08/2025 3:15 PM EST Appointment [address] [address] Michelle Marshall MD [address] [place] [address] 11/07/2025 11:00 AM EST Office Visit [facility] [address] [facility] 3rd Floor, [address] [place] [address] Saundra Rashid PA-C [address] [place] [address] 01/04/2026 10:40 AM EDT Office Visit [facility] [address] [place] [address] Raina Bernard MD, MPH [address] [facility], [address] [place] [address] 02/27/2026 9:30 AM EDT Office Visit [facility] [address] [place] [address] Connie Crabtree PA-C [address] [place] [address] [email or web address] Health Maintenance Due Date Last Done Comments TSH LEVEL 1950 DEPRESSION SCREENING 1961 RSV VACCINE (1 - 1-dose 75+ series) 2024 COVID-19 VACCINE ( season) 2025 07/03/2024, 06/29/2023, 07/11/2022, Additional history exists BLOOD PRESSURE 03/05/2026 09/04/2025 CREATININE LEVEL 05/14/2026 05/14/2025, , 10/03/2024, Additional history exists POTASSIUM LEVEL 05/14/2026 05/14/2025, 01/25, 10/03/2024, Additional history exists SMOKING Hx and SMOKELESS TOBACCO SCREENING 08/22/2026 08/22/2025 LIPID PANEL 12/03/2026 12/03/2021, 12/31/2020 Adult Td,Tdap Booster 05/16/2030 05/16/2020, 010 PNEUMOCOCCAL VACCINES (50+ years) Completed 06/15/2016, 03/22/2015, 06/03/2010 ZOSTER VACCINES Completed 11/07/2020, 08/17/2020 HEPATITIS C SCREENING Completed 01/26/2022, 022 OSTEOPOROSIS SCREENING INITIAL (ONE-TIME) Completed 05/25/2022 INFLUENZA VACCINE Completed 06/23/2025, , 06/29/2023, Additional history exists HEPATITIS A VACCINES Aged Out No long [...] this topic Medical Devices Implanted Type Area Police Patrol Lieutenant Device Identifier Shelf Expiration Date Model / Serial / Lot Zeus Zeus Spine Lumbar Description:4 spinal surgeri es with lots of hardwarre Cervical And Lumbar Fushions Lyons Suture Size 0 Needleos2 [id number] Arthroscopy Quick Double Arm Mini - [id number] Implanted:Qty: 1 on 09/09/2022 by Susan Jones MD at [facility] Left: Hand [employer] 07/27/2026 [id number] / / [id number] Hip Stem 11mm Femoral Echo Fx [place] Chromium - [id number] Implanted:Qty: 1 on 07/26/2024 by Estuardo Sanabria MD at [facility] Right: Femur [employer] 01/09/2034 [id number] / / [id number] Hip Liner [id number] Acetabular Dm Longevity - [id number] Implanted:Qty: 1 on 07/26/2024 by Estuardo Sanabria MD at [facility] Right: Hip [employer] 08/24/2027 [id number] / / [id number] Hip 28mm Bio Component Modular Cocr Standard 05 - [id number] Implanted:Qty: 1 on 07/26/2024 by Estuardo Sanabria MD at [facility] Right: Hip [employer] 03/13/2034 [id number] / / [id number] Kit Preparation Cement Femoral Bone Quick Use Bx/1ea - [id number] Implanted:Qty: 1 on 07/26/2024 by Estuardo Sanabria MD at [facility] Right: Femur [employer] 03/27/2029 [id number] 55-0 0 / / [id number] Description:Small plug impla nted Acetabular Shell 54mm Size F G7 Porous Plasma [place] [employer] Hole - [id number] Implanted:Qty: 1 on 07/26/2024 by Estuardo Sanabria MD at [facility] Right: Acetabulum [employer] 03/27/2034 [id number] / / [id number] Cement Bone 1x40 Standard - [id number] Implanted:Qty: 1 on 07/26/2024 by Estuardo Sanabria MD at [facility] Right: Femur [employer] 09/26/2026 [id number] / / [id number] Cement Bone 1x40 Standard - [id number] Implanted:Qty: 1 on 07/26/2024 by Estuardo Sanabria MD at [facility] Right: Femur [employer] 09/26/2026 [id number] / / [id number] Hip Centralizer 14mm Implant Cemented Versys 16b Bx/1ea - [id number] Implanted:Qty: 1 on 07/26/2024 by Estuardo Sanabria MD at [facility] Right: Femur [employer] 04/11/2028 [id number] / / [id number] Acetabular Liner 44mm Component Dual Mobility G7 - [id number] Implanted:Qty: 1 on 07/26/2024 by Estuardo Sanabria MD at [facility] Right: Hip [employer] 12/16/2033 [id number] / / [id number] Procedures Procedure Name Priority Date/Time Associated Diagnosis Comments ASPARTATE AMINOTRANSFERASE (AST) Routine 09/03/2025 2:55 PM EST Encounter for monitoring leflunomide therapy ALANINE AMINOTRANSFERASE (ALT) Routine 09/03/2025 2:55 PM EST Encounter for monitoring leflunomide therapy TTE COMPREHENSIVE Routine 08/27/2025 3:0 0 PM EST Cardiac murmur, unspecified Palpitations COMPREHENSIVE METABOLIC PANEL (CMP) Routine 05/14/2025 11:40 AM EDT Encounter for monitoring leflunomide therapy BD DXA HIP AND FOREARM Routine 11:09 AM EDT Rheumatoid arthritis involving right shoulder with positive rheumatoid factor HEPATITIS C ANTIBODY, QUALITATIVE Routine 01/26/2022 12:24 PM EDT Need for hepatitis C screening test from Last 3 Months or Most Recently Relevant to Health Maintenance Results * Aspartate Aminotransferase (AST) (09/03/2025 2:55 PM EST) Blood (Blood) Raina Bernard MD, MPH LAB BLOOD BKR ORDERABLES Final Result Performing Organization Address [facility] Co de Phone Number EXTERNAL NON-INTERFACED REF LAB * Alanine Aminotransferase (ALT) (09/03/2025 2:55 PM EST) Blood (Blood) Raina Bernard MD, MPH LAB BLOOD BKR ORDERABLES Final Result Performing Organization Address [facility] Co de Phone Number EXTERNAL NON-INTERFACED REF LAB * (ABNORMAL) TTE COMPREHENSIVE (08/27/2025 3:00 PM EST) Body Surface Area 1.69 m2 Height 165 cm Weight 63 kg Interventricular Septum Thickness 12 6 - 11 mm Left Ventricle Internal Diameter End Diastole 32 37 - 52 mm Left Ventricle Internal Diameter End Systole 22 <35 mm Left Ventricular Outflow Tract Diameter 18.0 mm Left Ventricular Posterior Wall Thickness 9 6 - 11 mm Left Ventricle Ea Lateral Wave Speed 10.7 cm/s Left Ventricle Ea Septal Wave Speed 6.5(A) cm/s Ejection Fraction 66 50 - 75 Percent Left Atrium Dimension Anterior-Posterior 33 15 - 40 mm Aortic Valve Mean Gradient 6 mmHg Aortic Valve Time Velocity Integral 284.0 mm Aortic Valve Peak Velocity 1.7 m/s Aortic Valve Peak Gradient 12 mmHg Aortic Arch Diameter 24 mm Aortic Sinus Diameter 28 <40 mm Ascending Aorta Diameter 31 <36 mm Inferior Vena Cava Diameter 5 <21 mm Mitral Valve Deceleration Time 351 ms Left Ventricle A Wave Speed 108.0 cm/s Left Ventricle E Wave Speed 50.7 cm/s Pulmonary Valve Peak Velocity 0.8 m/s Pulmonary Valve Peak Gradient 3 mmHg Right Ventricle Basal Diameter 34 25 - 41 mm Raw LV EF% 53 % MV E/E' Tissue Velocity Lateral 4.74 Relative Wall Thickness 0.56 0.22 - 0.42 Left Ventricle indexed to BSA 57.5 g/m2 MV E/A ratio 0.5 MV E/e' septal 7.80 Left Ventricle E/e' Average 6.3 Aortic Valve Prosthetic Peak Gradient 12 mmHg Aortic Valve Sinus Index by BSA 17 mm/m2 Aorta Sinus Index by Height 1.70 cm/m Aorta Sinus CSA index by Height 3.73 cm2/m Ascending Aorta Index 18 mm/m2 Asc Aorta CSA Index by Height 4.57 cm2/m Pulmonic Valve Prosthetic Peak Gradient 3 mmHg Ascending Aorta Index 18 mm Aortic Sinus Index 17 mm Ascending Aorta Diameter 18 mm Aortic Valve Sinus Index 1 17 19 - 27 mm AO ASC DIAM BSA INDEX 18.34 Echo E/Ea 7.80 Aortic Valve Prosthetic Mean Gradient 6 mmHg Left Atrial Volume Index 21 16 - 34 mL/m2 Right Ventricle TAPSE 16 >=17 mm Right Ventricle Pulse Doppler S Wave 15.0 >=9.5 cm/s Left Atrial Volume 36 mL Left Atrial Volume Index by Height 22 mL/m Anatomical Region Laterality Modality Heart Ultrasound Narrative 08/30/2025 12:39 PM EST Mild septal thickening with dynamic LV systolic function EF around 70%. Normal RV size and function. Normal left atrial size. Normal diastolic function for age. No significant valvular heart disease is seen. No pathologic cause for murmur found on this study. Left Ventricle The left ventricle is normal in size. There is LV hypertrophy with upper septal predominance. There is normal left ventricular systolic function. The LV ejection fraction is 65-70% (visually estimated). LV diastolic function appears within normal limits for age. Right Ventricle The right ventricle is normal in size. There is normal right ventricular systolic function. TAPSE is 16 mm (normal: >= 17 mm). RV S' wave is 15.0 cm/s (normal: >= 9.5 cm/s). Left Atrium The left atrium is normal in size. Right Atrium The right atrium is normal in size. The IVC is normal in size. Mitral Valve The mitral valve is suboptimally visualized. The mitral valve appears normal. There is no mitral stenosis. There is trace mitral regurgitation. Tricuspid Valve The tricuspid valve appears normal. There is no tricuspid stenosis. There is trace tricuspid regurgitation. RV systolic pressure could not be estimated due to insufficient TR Doppler envelope. Aortic Valve The aortic valve is tricuspid. There is no aortic stenosis. There is no aortic regurgitation. The aortic sinuses are normal in size. The ascending aorta is normal in size. Pulmonic Valve The pulmonic valve appears normal. There is no pulmonic stenosis. There is trace pulmonic regurgitation. Pericardium There is no pericardial effusion. General Findings The image quality was adequate. Technique(s) used in the evaluation: Multiplane, Color flow Doppler, Spectral Doppler and Epiaortic scan. IAS/IVS The interatrial septum appears normal. There is no evidence of patent foramen ovale (PFO). us Storm Scales DO CV ECHO ORDERABLES Final Resu lt * Comprehensive metabolic panel (05/14/2025 11:40 AM EDT) SODIUM 143 133 - 146 mmol/L [facility] POTASSIUM 4.2 3.3 - 5.1 mmol/L [facility] CHLORIDE 108 96 - 108 mmol/L [facility] CO2 23 21 - 35 mmol/L [facility] BUN 19 6 - 19 mg/dL [facility] CREATININE 0.90 0.5 - 1.5 mg/dL [facility] GLUCOSE 79 70 - 99 mg/dL [facility] ALBUMIN 4.2 3.9 - 4.8 g/dL [facility] TOTAL PROTEIN 7.3 6.5 - 8.0 g/dL [facility] CALCIUM 9.0 8.4 - 10.3 mg/dL [facility] ALKALINE PHOSPHATASE 64 39 - 117 U/L [facility] TOTAL BILIRUBIN 0.4 0.0 - 1.2 mg/dL [facility] AST 20 0 - 37 U/L [facility] ALT 12 0 - 40 U/L [facility] GLOBULIN 3.1 1 - 4.8 g/dL [facility] EGFR 66 >59 mL/min/1.7 3m2 [facility] Comment:Estimated glomerular filtration rate calculated using the CKD-EPI refit equation. ANION GAP 16 10 - 20 mmol/L [facility] Blood 05/14/2025 11:4 0 AM EDT 05/14/2025 11:44 AM EDT us Raina Bernard MD, MPH LAB BLOOD BKR ORDERABLES Final Result [facility] [address] [place] [address] * BD DXA HIP AND FOREARM (05/25/2022 [...] PM EDT) HCV NON-REACTIV E NON-REACTI VE [facility] Blood 01/26/2022 12:2 4 PM EDT 01/26/2022 12:40 PM EDT us Alfredo Lea MD LAB BLOOD BKR ORD ERABLES Final Result [address] [address] from Last 3 Months or Most Recently Relevant to Health Maintenance [place] [address] [place] [address] FAMILY HEALTH PLAN HEALTH PLAN HEALTH PLAN HEALTH PLAN HEALTH PLAN HEALTH PLAN HEALTH PLAN HEALTH PLAN PLAN Advance Directives For more information, please contact: [phone] (9AM - 5PM [facility], Wednesday-Wednesday) * Full Code (Latest Code Status on File) Date Activated Date Inactivated Comments 07/26/2024 5:29 PM Question Answer Comments Code Status Confirmed With: Patient * Full Code Date Activated Date Inactivated Comments 07/26/2024 9:05 AM 07/26/2024 5:29 PM Question Answer Comments Code Status Confirmed With: Patient Care Teams Turbine Operator Relationship Specialty Start Date End Date Michelle Marshall MD [address] [place] [address] [email or web address] PCP - General Family Medicine 08/18/23 Additional Source Comments The information contained in this document represents components of the legal health record. It is not the complete legal health record.[facility]
--- OUTSIDE RECORDS SUMMARY | 2025-09-14 13:38 | XMS_ITS | Encounter Summary ---
Author Organization [facility] Address [address] [facility] [address] [place] [address] Phone Care Team Providers Care [employer] Portal Consultant Name Role Phone Christine Cruz MD Primary Care Provider [phone] Michelle Marshall MD Primary Care Provider [phone] Michelle Marshall MD Primary Care Provider [phone] Encounter Details Date Type Department Care Team (Late st Contact Info) Description 07/18/2022 Procedure Pass [address] [address] Social History Tobacco Use Types Packs/Day Years [...] st Contact Info) Description 09/11/2025 Procedure Pass [address] [address] [address] 09/11/2025 Procedure Pass [address] [address] 10/08/2025 2:45 PM EST Appointment [address] [address] Michelle Marshall MD [address] [place] [address] 10/08/2025 3:15 PM EST Appointment [address] [address] Michelle Marshall MD [address] [place] [address] 11/07/2025 11:00 AM EST Office Visit [facility] [address] [place] [address] 3rd Floor, [address] [place] [address] Saundra Rashid PA-C [address] [place] [address] 01/04/2026 10:40 AM EDT Office Visit [facility] [address] [place] [address] Raina Bernard MD, MPH [address] [facility], [address] [place] [address] 02/27/2026 9:30 AM EDT Office Visit [facility] [address] [place] [address] Connie Crabtree PA-C [address] [place] [address] documented as of this encounter Visit Diagnoses Not on filedocumented in this encounter Care Teams [employer] Consultant Relationship Specialty Start Date End Date Christine Cruz MD [address] [place] [address] PCP - General 07/13/17 08/09/22 Michelle Marshall MD [address] [place] [address] [email or web address] PCP - General Family Medicine 08/10/22 08/17/23 Michelle Marshall MD [address] [place] [address] [email or web address] PCP - General Family Medicine 08/18/23 documented as of this encounter Additional Source Comments The information contained in this document represents components of the legal health record. It is not the complete legal health record.[facility]
--- OUTSIDE RECORDS SUMMARY | 2025-09-14 13:39 | XMS_ITS | Encounter Summary ---
Author Organization [facility] Address [address] [employer] [facility] [address] [place] [address] Phone Care Team Providers Care Floor Broker Name Role Phone Christine Cruz MD Primary Care Provider Michelle Marshall MD Primary Care Provider [phone] Michelle Marshall MD Primary Care Provider Encounter Details Date Type Department Care Team (Late st Contact Info) Description 04/20/2018 Ancillary Orders Virtual Department [address] [place] [address] Christine Cruz MD [address] [place] [phone] Breast screening Social History Tobacco Use Types Packs/Day Years Used Date Smoking Tobacco: Never Assessed Comments Unknown Sex and Gender Information Value Date Recorded Sex Assigned at Female 06/10/2018 6:55 PM EDT Legal Sex Female 10:04 PM EDT Gender Identity Female 06/10/2018 6:55 PM EDT Sexual Orientation Straight 06/10/2018 6: 55 PM EDT documented as of this encounter Plan of Treatment Upcoming Encounters Date Type Department Care Team (Late st Contact Info) Description 09/11/2025 Procedure Pass [facility], [address] [address] 09/11/2025 Procedure Pass [facility], [address] [address] 10/08/2025 2:45 PM EST Appointment [address] [address] Michelle Marshall MD [address] [place] [address] 10/08/2025 3:15 PM EST Appointment [address] [address] Michelle Marshall MD [address] [place] [address] 11/07/2025 11:00 AM EST Office Visit [facility] [address] [place] [address] 3rd Floor, [address] [place] [address] Saundra Rashid PA-C [address] [place] [address] 01/04/2026 10:40 AM EDT Office Visit [facility] [address] [place] [address] Raina Bernard MD, MPH 22 [facility], [address] [place] [address] 02/27/2026 9:30 AM EDT Office Visit [facility] [address] [place] [address] Connie Crabtree PA-C [address] [place] [address] documented as of this encounter Results * BI MAMMOGRAM SCREENING WITH TOMOSYNTHESIS WITH CAD (BILATERAL) (04/21/2018 11:15 AM EDT) Anatomical Region Laterality Modality Breast Left, Breast Right, Breast Bilateral Bila teral Mammography 04/21/2018 3:12 PM EDT Impressions 04/21/2018 3:15 PM EDT No mammographic change indicative of malignancy. Routine screening is recommended. BI-RADS CATEGORY: 2 - Benign finding. DENSITY: The breast tissue is heterogeneously dense, an appearance which lowers the sensitivity of mammography. POS -[id number] Narrative 04/21/2018 3:15 PM EDT Bilateral full-field digital screening mammography is obtained and read in conjunction with computer-aided detection. Tomosynthesis as well as 2-D C view imaging of both breasts in two planes also obtained. Comparison made to multiple prior, most recent 04/02/2017, and most remote 10/07/2011. No dominant mass, architectural distortion, worrisome asymmetry, or suspicious calcification is identified. No skin or nipple finding of concern is appreciated. Coarse calcifications bilaterally are stable. Procedure Note Bryant Escobar MD - 04/21/2018 Bilateral full-field digital screening mammography is obtained and read inconjunction with computer-aided detection. Tomosynthesis as well as 2-D Cview imaging of both breasts in two planes also obtained. Comparison madeto multiple prior, most recent 04/02/2017, and most remote 10/07/2011. No dominant mass, architectural distortion, worrisome asymmetry, orsuspicious calcification is identified. No skin or nipple finding ofconcern is appreciated. Coarse calcifications bilaterally are stable. IMPRESSION: No mammographic change indicative of malignancy. Routine screening isrecommended. BI-RADS CATEGORY: 2 - Benign finding. DENSITY: The breast tissue is heterogeneously dense, an appearance whichlowers the sensitivity of mammography. POS -[id number] Christine Cruz MD IMG MG EXAMS Final Result documented in this encounter Visit Diagnoses Diagnosis Breast screening Breast screening, unspecified Breast screening Breast screening, unspecified documented in this encounter Care Teams Floor Broker Relationship Specialty Start Date End Date Christine Cruz MD [address] [place] [address] PCP - General 07/13/17 08/09/22 Michelle Marshall MD [address] [place] [phone] [email or web address] PCP - General Family Medicine 08/10/22 08/17/23 Michelle Marshall MD [address] [place] [address] [email or web address] PCP - General Family Medicine 08/18/23 documented as of this encounter Additional Source Comments The information contained in this document represents components of the legal health record. It is not the complete legal health record.[facility]
--- OUTSIDE RECORDS SUMMARY | 2025-09-14 13:39 | XMS_ITS | Encounter Summary ---
Author Organization [facility] Address [address] [employer] [facility] [address] [place] [address] Phone Care Team Providers Care Ski Lift Operator Name Role Phone Christine Cruz MD Primary Care Provider [phone] Michelle Marshall MD Primary Care Provider [phone]- [phone] Michelle Marshall MD Primary Care Provider Encounter Details Date Type Department Care Team (Late st Contact Info) Description 04/29/2021 Ancillary Orders Virtual Department [address] [place] [address] Christine Cruz MD [address] [place] [address] Breast screening Social History Tobacco Use Types [...] Contact Info) Description 09/11/2025 Procedure Pass [facility], [facility] [address] [place] [address] 09/11/2025 Procedure Pass [address] [address] 10/08/2025 2:45 PM EST Appointment [address] [address] Michelle Marshall MD [address] [place] [address] 10/08/2025 3:15 PM EST Appointment [address] [address] Michelle Marshall MD [address] [place] [address] 11/07/2025 11:00 AM EST Office Visit [facility] [address] [place] [address] [facility], [address] [place] [address] Saundra Rashid PA-C [address] [place] [address] 01/04/2026 10:40 AM EDT Office Visit [facility] [address] [place] [address] Raina Bernard MD, MPH 22 [facility], [address] [place] [address] 02/27/2026 9:30 AM EDT Office Visit [facility] [address] [place] [address] Connie Crabtree PA-C [address] [place] [address] documented as of this encounter Results * [...] unspecified documented in this encounter Care Teams Ski Lift Operator Relationship Specialty Start Date End Date Christine Cruz MD [address] [place] [address] PCP - General 07/13/17 08/09/22 Michelle Marshall MD [address] [place] [address] [email or web address] PCP - General Family Medicine 08/10/22 08/17/23 Michelle Marshall MD [address] [place] [address] [email or web address] PCP - General Family Medicine 08/18/23 documented as of this encounter Additional Source Comments The information contained in this document represents components of the legal health record. It is not the complete legal health record.[facility]
--- OUTSIDE RECORDS SUMMARY | 2025-09-14 13:39 | XMS_ITS | Encounter Summary ---
Author Organization [facility] Address [address] [place] [address] Phone Care Team Providers Care Wax Engraver Name Role Phone Michelle Marshall MD Primary Care Provider [phone] Encounter Details Date Type Department Care Team (Late st Contact Info) Description 08/18/2024 Procedure Pass [facility] [address] [place] [address] Social History Tobacco Use Types Packs/Day Years [...] Contact Info) Description 09/11/2025 Procedure Pass [address] [address] 09/11/2025 Procedure Pass [address] [address] 10/08/2025 2:45 PM EST Appointment [address] [address] Michelle Marshall MD [address] [place] [address] 10/08/2025 3:15 PM EST Appointment [facility] [address] [place] [address] Michelle Marshall MD [address] [place] [address] 11/07/2025 11:00 AM EST Office Visit [facility] 3rd Floor, [address] [place] [address] Saundra Rashid PA-C [address] [place] [address] 01/04/2026 10:40 AM EDT Office Visit [facility] [address] [place] [address] Raina Bernard MD, MPH 22 [facility], [address] [place] [address] 02/27/2026 9:30 AM EDT Office Visit [facility] [address] [place] [address] Connie Crabtree PA-C [address] [place] [address] documented as of this encounter Visit Diagnoses Not on filedocumented in this encounter Care Teams Wax Engraver Relationship Specialty Start Date End Date Michelle Marshall MD [address] [place] [address] PCP - General Family Medicine 08/18/23 documented as of this encounter Additional Source Comments The information contained in this document represents components of the legal health record. It is not the complete legal health record.[facility]
--- OUTSIDE RECORDS SUMMARY | 2025-09-14 13:39 | XMS_ITS | Encounter Summary ---
Author Organization [facility] Address [address] [facility] [address] [place] [address] Phone Care Team Providers Care Client Relations Associate Name Role Phone Christine Cruz MD Primary Care Provider [phone] Michelle Marshall MD Primary Care Provider [phone] Michelle Marshall MD Primary Care Provider [phone] Encounter Details Date Type Department Care Team (Late st Contact Info) Description 04/29/2021 Procedure Pass [address] [address] Social History Tobacco Use Types Packs/Day Years [...] st Contact Info) Description 09/11/2025 Procedure Pass [address] [address] 09/11/2025 Procedure Pass [address] [address] 10/08/2025 2:45 PM EST Appointment [address] [address] Michelle Marshall MD [address] [place] [address] 10/08/2025 3:15 PM EST Appointment [address] [address] Michelle Marshall MD [address] [place] [address] 11/07/2025 11:00 AM EST Office Visit [facility] [address] [place] [address] [address] [facility], [address] [place] [address] Saundra Rashid PA-C [address] [place] [address] 01/04/2026 10:40 AM EDT Office Visit [facility] [address] [place] [address] Raina Bernard MD, MPH 22 [facility], [address] [place] [address] 02/27/2026 9:30 AM EDT Office Visit [facility] [address] [place] [address] Connie Crabtree PA-C [address] [place] [address] documented as of this encounter Visit Diagnoses Not on filedocumented in this encounter Care Teams Client Relations Associate Relationship Specialty Start Date End Date Christine Cruz MD [address] [place] [address] PCP - General 07/13/17 08/09/22 Michelle Marshall MD [address] [place] [address] [email or web address] PCP - General Family Medicine 08/10/22 08/17/23 Michelle Marshall MD [address] [place] [address] [email or web address] PCP - General Family Medicine 08/18/23 documented as of this encounter Additional Source Comments The information contained in this document represents components of the legal health record. It is not the complete legal health record.[facility]
--- OUTSIDE RECORDS SUMMARY | 2025-09-14 13:39 | XMS_ITS | Encounter Summary ---
Author Organization [facility] Address [address] [facility] [address] [place] [address] Phone Care Team Providers Care Curriculum Coach Name Role Phone Christine Cruz MD Primary Care Provider [phone] Michelle Marshall MD Primary Care Provider [phone] Micehlle Marshall MD Primary Care Provider [phone] Encounter Details Date Type Department Care Team (Late st Contact Info) Description 03/08/2021 Procedure Pass [place] Scan [address] [address] Social History Tobacco Use Types Packs/Day Years [...] Info) Description 09/11/2025 Procedure Pass [facility]- [address] [address] 09/11/[address] [address] 10/08/2025 2:45 PM EST Appointment [address] [address] Michelle Marshall MD [address] [place] [address] 10/08/2025 3:15 PM EST Appointment [address] [address] Michelle Marshall MD [address] [place] [address] 11/07/2025 11:00 AM EST Office Visit [facility] [address] [place] [address] 3rd Floor, [address] [place] [address] Saundra Rashid PA-C [address] [place] [address] 01/04/2026 10:40 AM EDT Office Visit [facility] [address] [place] [address] Raina Bernard MD, MPH 22 [facility], [address] [place] [address] 02/27/2026 9:30 AM EDT Office Visit [facility] [address] [place] [address] Connie Crabtree PA-C [address] [place] [address] documented as of this encounter Visit Diagnoses Not on filedocumented in this encounter Care Teams Curriculum Coach Relationship Specialty Start Date End Date Christine Cruz MD [address] [place] [address] [place] [address] PCP - General 07/13/17 08/09/22 Michelle Marshall MD [address] [place] [address] [email or web address] PCP - General Family Medicine 08/10/22 08/17/23 Michelle Marshall MD [address] [place] [address] [email or web address] PCP - General Family Medicine 08/18/23 documented as of this encounter Additional Source Comments The information contained in this document represents components of the legal health record. It is not the complete legal health record.[facility]
--- OUTSIDE RECORDS SUMMARY | 2025-09-14 13:39 | XMS_ITS | Encounter Summary ---
Author Organization [facility] Address [address] [facility] [address] [place] [address] Phone Care Team Providers Care Buffer Operator Name Role Phone Michelle Marshall MD Primary Care Provider [phone] Reason for Referral * MRI/CAT Scan - Closed Specialty Diagnoses / Procedures Referred By Contac t Referred To Contact Radiology Diagnoses Other spondylosis with radiculopathy, thoracic region Procedures MRI Thoracic Spine CHG MRI, DORSAL SPINE CHG MRI, DORSAL SPINE CONTRAST CHG MRI, DORSAL SPINE COMBO VT MAURI MR BILLY TISS COMPOSITION W/MRI FLAT IRONER ORGANS Mark Jernigan DO [address] [place] [address] Phone: tel: fax: [email or web address] Referral ID Status Reason Start Date Expiration Date Visits Re quested Visits Authorized [id number] Closed 03/23/2025 05/22/2025 1 1 Encounter Details Date Type Department Care Team (Latest Contact Info) Description 03/26/2025 Transcribe Orders Virtual Department [address] [place] [address] Mark Jernigan DO [address] [place] [address] [email or web address] Other spondylosis with radiculopathy, thoracic region (Primary [...] st Contact Info) Description 09/11/2025 Procedure Pass [address] [address] 09/11/2025 Procedure Pass [address] [address] 10/08/2025 2:45 PM EST Appointment [address] [address] Michelle Marshall MD [address] [place] [address] 10/08/2025 3:15 PM EST Appointment [address] [address] Michelle Marshall MD [address] [place] [address] 11/07/2025 11:00 AM EST Office Visit [facility] [address] [place] [address] 3rd Floor, [address] [place] [address] Saundra Rashid PA-C [address] [place] [address] 01/04/2026 10:40 AM EDT Office Visit [facility] [address] [place] [address] Raina Bernard MD, MPH 22 [facility], [address] [place] [address] [email or web address] 02/27/2026 9:30 AM EDT Office Visit [facility] [address] [place] [address] Connie Crabtree PA-C [address] [address] [email or web address] documented as [...] susceptibility artifact extending caudally out of the tkzsm-vp-ekmc. Intervertebral spacers in the visualized upper lumbar [...] withassociated susceptibility artifact extending caudally out of axtzztsm-ad-lszn. Intervertebral spacers in the visualized upper lumbar spineare seen. Marrow: No bone marrow replacing lesion. Discs and Endplates: Multilevel disc degeneration and disc height loss.Multilevel disc herniations including a cranially directed rightparacentral disc extrusion at T7-T8 which narrows the anterior CSF space.Bulky posterior ossification along the posterior aspect of the vertebralbodies spanning T8 through T10 is again seen, most prominent at T8-M3ggpaa there is severe spinal canal narrowing. Severe [...] T8-T9 andT9-T10. 2. Chronic ununited dens fracture. Mark Jernigan DO IMG MR XSPECIALTY Final Resu lt documented in this encounter Visit Diagnoses Diagnosis Other spondylosis with radiculopathy, thoracic region- Primary Other spondylosis with radiculopathy, thoracic region documented in this encounter Care Teams Buffer Operator Relationship Specialty Start Date End Date Michelle Marshall MD [address] [place] [address] [email or web address] PCP - General Family Medicine 08/18/23 documented as of this encounter Additional Source Comments The information contained in this document represents components of the legal health record. It is not the complete legal health record.[facility]
--- OUTSIDE RECORDS SUMMARY | 2025-09-14 13:39 | XMS_ITS | Encounter Summary ---
Author Organization [facility] Address [address] [place] [address] Phone Care Team Providers Care Repairer Cylinder Heads Name Role Phone Michelle Marshall MD Primary Care Provider [phone] Reason for Referral * MRI/CAT Scan - Closed Specialty Diagnoses / Procedures Referred By Contjose t Referred To Contact Radiology Diagnoses Chest pain, unspecified type Procedures NC Stress Result for Nuclear Stress Test Michelle Marshall MD [address] [place] [address] Phone: tel: fax: [email or web address] Referral ID Status Reason Start Date Expiration Date Visits Re quested Visits Authorized [id number] Closed 12/04/2024 12/04/2025 1 1 Encounter Details Date Type Department Care Team (Late st Contact Info) Description 12/04/2024 Ancillary Orders Virtual Department 30 [place] [address] Michelle Marshall MD [address] [place] [address] [email or web address] Chest pain, unspecified type (Primary Dx) Social [...] Contact Info) Description 09/11/2025 Procedure Pass [address] [address] 09/11/2025 Procedure Pass [address] [address] 10/08/2025 2:45 PM EST Appointment [address] [address] Michelle Marshall MD [address] [place] [address] 10/08/2025 3:15 PM EST Appointment [address] [address] Michelle Marshall MD [address] [place] [address] 11/07/2025 11:00 AM EST Office Visit [facility] 22 [facility] 3rd Floor, [address] [place] [address] Saundra Rashid PA-C [address] [place] [address] 01/04/2026 10:40 AM EDT Office Visit [facility] 22 [place] [address] Raina Bernard MD, MPH 22 [facility], [address] [place] [address] [email or web address] 02/27/2026 9:30 AM EDT Office Visit [facility] 10 [place] [address] Connie Crabtree PA-C [address] [address] [email or web address] documented as of this encounter Results * NC Stress Result for Nuclear Stress Test (12/04/2024 11:01 AM EDT) Max Predicted Heart Rate 145 bpm [facility] Max BP Systolic 150 mmHg [facility] Max BP Diastolic 70 mmHg [facility] Max HR 133 BPM [facility] Resting HR 110 BPM [facility] Resting BP Systolic 136 mmHg [facility] Resting BP Diastolic 90 mmHg [facility] Peak METS 1.0 METS [facility] Peak HR 127 BPM [facility] Anatomical Region Laterality Modality Heart Other 12/04/2024 [...] followed by injection of Tc99m Sestamibi by nuclear medicine tech. 1. EKG: Baseline EKG showed sinus rhythm [...] stress report for full details. Rachel Desai PARKING SUPERVISOR with Dr. Villalobos Response to Stress The [...] type documented in this encounter Care Teams Repairer Cylinder Heads Relationship Specialty Start Date End Date Michelle Marshall MD [address] [place] [address] [email or web address] PCP - General Family Medicine 08/18/23 documented as of this encounter Additional Source Comments The information contained in this document represents components of the legal health record. It is not the complete legal health record.[facility]
--- OUTSIDE RECORDS SUMMARY | 2025-09-14 13:39 | XMS_ITS | Encounter Summary ---
Author Organization [facility] Address [address] [place] [address] Phone Care Team Providers Care Machining Manager Name Role Phone Michelle Marshall MD Primary Care Provider [phone] Michelle Marshall MD Primary Care Provider [phone] Encounter Details Date Type Department Care Team (Late st Contact Info) Description 05/28/2023 Procedure Pass [facility] [address] [place] [address] Social History Tobacco Use Types Packs/Day Years [...] st Contact Info) Description 09/11/2025 Procedure Pass [address] [address] 09/11/2025 Procedure Pass [address] [address] 10/08/2025 2:45 PM EST Appointment [address] [address] Michelle Marshall MD [address] [place] [address] 10/08/2025 3:15 PM EST Appointment [address] [address] Michelle Marshall MD [address] [place] [address] 11/07/2025 11:00 AM EST Office Visit [facility] [address] [place] [address] 3rd Floor, [address] [place] [address] Saundra Rashid PA-C [address] [place] [address] 01/04/2026 10:40 AM EDT Office Visit [facility] [address] [place] [address] Raina Bernard MD, MPH 22 [facility], [address] [place] [address] 02/27/2026 9:30 AM EDT Office Visit [facility] 10 [place] [address] Connie Crabtree PA-C [address] [place] [address] [email or web address] documented as of this encounter Visit Diagnoses Not on filedocumented in this encounter Care Teams Machining Manager Relationship Specialty Start Date End Date Michelle Marshall MD [email or web address] PCP - General Family Medicine 08/10/22 08/17/23 Michelle Marshall MD [address] [place] [address] [email or web address] PCP - General Family Medicine 08/18/23 documented as of this encounter Additional Source Comments The information contained in this document represents components of the legal health record. It is not the complete legal health record.[facility]
--- OUTSIDE RECORDS SUMMARY | 2025-09-14 13:39 | XMS_ITS | Encounter Summary ---
Author Organization [facility] Address [address] [place] [address] Phone Care Team Providers Care Fruit And Vegetable Packer Name Role Phone Michelle Marshall MD Primary Care Provider [phone]- [phone] Encounter Details Date Type Department Care Team ([facility] st Contact Info) Description 02/27/2025 Procedure Pass [facility] Endoscopy Admitting Dept Virtual Department [address] [place] [address] Social History Tobacco Use Types Packs/Day Years [...] is your housing situation today? I have scottkwan ferreira 07/26/2024 How many times have you [...] st Contact Info) Description 09/11/2025 Procedure Pass [address] [address] 09/11/2025 Procedure Pass [address] [address] 10/08/2025 2:45 PM EST Appointment [address] [address] Michelle Marshall MD [address] [place] [address] 10/08/2025 3:15 PM EST Appointment [facility] [address] [place] [address] Michelle Marshall MD [address] [place] [address] 11/07/2025 11:00 AM EST Office Visit [facility] [address] [place] [address] 3rd Floor, [address] [place] [address] Saundra Rashid PA-C [address] [place] [address] 01/04/2026 10:40 AM EDT Office Visit [facility] [address] [place] [address] Raina Bernard MD, MPH 22 [facility], [address] [place] [address] 02/27/2026 9:30 AM EDT Office Visit [facility] [address] [place] [address] Connie Crabtree PA-C [address] [place] [address] documented as of this encounter Visit Diagnoses Not on filedocumented in this encounter Care Teams Fruit And Vegetable Packer Relationship Specialty Start Date End Date Michelle Marshall MD [address] [place] [address] PCP - General Family Medicine 08/18/23 documented as of this encounter Additional Source Comments The information contained in this document represents components of the legal health record. It is not the complete legal health record.[facility]
--- OUTSIDE RECORDS SUMMARY | 2025-09-14 13:39 | XMS_ITS | Encounter Summary ---
Author Organization [facility] Address [address] [facility] [address] [place] [address] Phone Care Team Providers Care Park Keeper Name Role Phone Christine Cruz MD Primary Care Provider [phone] Michelle Marshall MD Primary Care Provider [phone] Michelle Marshall MD Primary Care Provider Encounter Details Date Type Department Care Team (Late st Contact Info) Description 05/28/2020 Procedure Pass [address] [address] Social History Tobacco Use Types Packs/Day Years [...] st Contact Info) Description 09/11/2025 Procedure Pass [address] [address] 09/11/2025 Procedure Pass [address] [address] 10/08/2025 2:45 PM EST Appointment [address] [address] Michelle Marshall MD [address] [place] [address] 10/08/2025 3:15 PM EST Appointment , [facility] 30 [place] [address] Michelle Marshall MD [address] [place] [address] 11/07/2025 11:00 AM EST Office Visit [facility] 22 [facility] 3rd Floor, [address] [place] [address] Saundra Rashid PA-C [address] [place] [address] 01/04/2026 10:40 AM EDT Office Visit [facility] 22 [place] [address] Raina Bernard MD, MPH 22 [facility], [address] [place] [address] 02/27/2026 9:30 AM EDT Office Visit [facility] [address] [place] [address] Connie Crabtree PA-C [address] [place] [address] documented as of this encounter Visit Diagnoses Not on filedocumented in this encounter Care Teams Park Keeper Relationship Specialty Start Date End Date Christine Cruz MD [address] [place] [phone] PCP - General 07/13/17 08/09/22 Michelle Marshall MD [address] [place] [phone] [email or web address] PCP - General Family Medicine 08/10/22 08/17/23 Michelle Marshall MD 238 [place] [address] [email or web address] PCP - General Family Medicine 08/18/23 documented as of this encounter Additional Source Comments The information contained in this document represents components of the legal health record. It is not the complete legal health record.[facility]
--- OUTSIDE RECORDS SUMMARY | 2025-09-14 13:39 | XMS_ITS | Encounter Summary ---
Author Organization [facility] Address [address] [place] [address] Phone Care Team Providers Care Naval Designer Name Role Phone Michelle Marshall MD Primary Care Provider [phone] Encounter Details Date Type Department Care Team (Late st Contact Info) Description 08/07/2025 Procedure Pass [facility] [address] [place] [address] Social History Tobacco Use Types Packs/Day Years [...] Contact Info) Description 09/11/2025 Procedure Pass [address] [address] 09/11/2025 Procedure Pass [address] [address] 10/08/2025 2:45 PM EST Appointment [address] [address] Michelle Marshall MD [address] [place] [address] 10/08/2025 3:15 PM EST Appointment [facility] 30 [place] [address] Michelle Marshall MD [address] [place] [address] 11/07/2025 11:00 AM EST Office Visit [facility] 22 [facility] 3rd Floor, [address] [place] [address] Saundra Rashid PA-C [address] [place] [address] 01/04/2026 10:40 AM EDT Office Visit [facility] 22 [place] [address] Raina Bernard MD, MPH 22 [facility], [address] [place] [address] 02/27/2026 9:30 AM EDT Office Visit [facility]astroenterology [facility] [address] [place] [address] Connie Crabtree PA-C [address] [place] [address] documented as of this encounter Visit Diagnoses Not on filedocumented in this encounter Care Teams Naval Designer Relationship Specialty Start Date End Date Michelle Marshall MD [address] [place] [address] PCP - General Family Medicine 08/18/23 documented as of this encounter Additional Source Comments The information contained in this document represents components of the legal health record. It is not the complete legal health record.[facility]
--- OUTSIDE RECORDS SUMMARY | 2025-09-14 13:39 | XMS_ITS | Encounter Summary ---
Author Organization [facility] Address [address] [facility] [address] [place] [address] Phone Care Team Providers Care Cellophane Wrapping Examiner Name Role Phone Christine Cruz MD Primary Care Provider Michelle Marshall MD Primary Care Provider [phone] Michelle Marshall MD Primary Care Provider Encounter Details Date Type Department Care Team (Late st Contact Info) Description 05/24/2020 Ancillary Orders Virtual Department [address] [place] [address] Gloria Mary PA [address] [address] Breast screening Social History Tobacco Use Types [...] st Contact Info) Description 09/11/2025 Procedure Pass [facility], [address] [address] 09/11/2025 Procedure Pass [address] [address] 10/08/2025 2:45 PM EST Appointment [address] [address] Michelle Marshall MD [address] [place] [address] 10/08/2025 3:15 PM EST Appointment [address] [address] Michelle Marshall MD [address] [place] [address] 11/07/2025 11:00 AM EST Office Visit [facility] [address] [place] [address] 3rd Floor, [address] [place] [address] Saundra Rashid PA-C [address] [place] [address] 01/04/2026 10:40 AM EDT Office Visit [facility] [address] [place] [address] Raina Bernard MD, MPH 22 [facility], [address] [place] [address] 02/27/2026 9:30 AM EDT Office Visit [facility]astroenterology [facility] 10 [place] [address] Connie Crabtree PA-C [address] [place] [address] documented as of this encounter Results * [...] appreciated. Coarse and vascular calcification is stable. Gloria LEVY IMG MG EXAMS Final Result documented in this encounter Visit Diagnoses Diagnosis Breast screening Breast screening, unspecified Breast screening Breast screening, unspecified documented in this encounter Care Teams Cellophane Wrapping Examiner Relationship Specialty Start Date End Date Christine Cruz MD [address] [place] [address] PCP - General 07/13/17 08/09/22 Michelle Marshall MD [address] [place] [address] PCP - General Family Medicine 08/10/22 08/17/23 Michelle Marshall MD [address] [place] [address] PCP - General Family Medicine 08/18/23 documented as of this encounter Additional Source Comments The information contained in this document represents components of the legal health record. It is not the complete legal health record.[facility]
--- OUTSIDE RECORDS SUMMARY | 2025-09-14 13:40 | XMS_ITS | Encounter Summary ---
Author Organization [facility] Address [address] [place] [address] Phone Care Team Providers Care Lab Animal Technologist Name Role Phone Michelle Marshall MD Primary Care Provider [phone] Michelle Marshall MD Primary Care Provider [phone] Encounter Details Date Type Department Care Team (Latest Contact Info) Description 06/02/2023 Transcribe Orders Virtual Department 30 [place] [address] Mark Jernigan, DO [address] [place] [address] [email or web address] Thoracic spine pain (Primary Dx) Social History [...] (Late st Contact Info) Description 09/11/[address] [address] 09/11/2025 Procedure Pass [address] [address] 10/08/2025 2:45 PM EST Appointment [address] [address] Michelle Marshall MD [address] [place] [address] 10/08/2025 3:15 PM EST Appointment [address] [address] Michelle Marshall MD [address] [place] [address] 11/07/2025 11:00 AM EST Office Visit [facility] 22 [facility] 3rd Floor, [address] [place] [address] Saundra Rashid PA-C [address] [place] [address] 01/04/2026 10:40 AM EDT Office Visit [facility] [address] [place] [address] Raina Bernard MD, MPH 22 [facility], [address] [place] [address] 02/27/2026 9:30 AM EDT Office Visit [facility]astroenter[facility] 10 [place] [address] Connie Crabtree PA-C [address] [address] [email or web address] documented as of this encounter Results [...] and degenerative findings when compared to June2022. Mark Jernigan IMG XR SPINE Final Result documented in this encounter Visit Diagnoses Diagnosis Thoracic spine pain- Primary Pain in thoracic spine Thoracic spine pain Pain in thoracic spine documented in this encounter Care Teams Lab Animal Technologist Relationship Specialty Start Date End Date Michelle Marshall MD [email or web address] PCP - General Family Medicine 08/10/22 08/17/23 Michelle Marshall MD [address] [place] [address] PCP - General Family Medicine 08/18/23 documented as of this encounter Additional Source Comments The information contained in this document represents components of the legal health record. It is not the complete legal health record.[facility]
--- OUTSIDE RECORDS SUMMARY | 2025-09-14 13:40 | XMS_ITS | Clinical Summary ---
Author Organization [employer] [facility] Prior to 02/24/25 Address [address] [place] [address] Care Team Providers Care Coat Check Attendant Name Role Phone Greg Luz MD Primary Care Provider [phone] Allergies Active Allergy Reactions Criticality Noted Date [...] - 1-dose 75+ series) 2024 COVID-19 Vaccine (3 - season) 2025 01/10/2021, 12/17/2020 Influenza Vaccine [...] age to complete this topic Care Teams Coat Check Attendant Relationship Specialty Start Date End Date Greg Luz MD [address] [place] [phone] PCP - General Internal Medicine 11/30/19
--- OUTSIDE RECORDS SUMMARY | 2025-09-14 13:40 | XMS_ITS | Encounter Summary ---
Author Organization [facility] Address [address] [place] [address] Phone Care Team Providers Care Tripe Cooker Name Role Phone Michelle Marshall MD Primary Care Provider [phone] Encounter Details Date Type Department Care Team (Late st Contact Info) Description 08/18/2024 Transcribe Orders Virtual Department 30 [place] [address] Michelle Marshall MD [address] [place] [address] [email or web address] Breast screening (Primary Dx) Social History Tobacco [...] Contact Info) Description 09/11/2025 Procedure Pass [address] [address] 09/11/2025 Procedure Pass [address] [place] [address] 10/08/2025 2:45 PM EST Appointment [facility] Mammography- [address] [address] Michelle Marshall MD [address] [place] [address] 10/08/2025 3:15 PM EST Appointment [facility], Ultrasound - [address] [address] Michelle Marshall MD [address] [place] [address] 11/07/2025 11:00 AM EST Office Visit [facility] [address] [place] [address] 3rd Floor, [address] [place] [address] Saundra Rashid PA-C [address] [place] [address] 01/04/2026 10:40 AM EDT Office Visit [facility] [address] [place] [address] Raina Bernard MD, MPH [facility], [address] [place] [address] 02/27/2026 9:30 AM EDT Office Visit [facility]enter[facility] [address] [place] [address] Connie Crabtree PA-C [address] [place] [address] documented as of this encounter Results * [...] unspecified documented in this encounter Care Teams Tripe Cooker Relationship Specialty Start Date End Date Michelle Marshall MD [address] [place] [address] [email or web address] PCP - General Family Medicine 08/18/23 documented as of this encounter Additional Source Comments The information contained in this document represents components of the legal health record. It is not the complete legal health record.[facility]
--- OUTSIDE RECORDS SUMMARY | 2025-09-14 13:40 | XMS_ITS | Encounter Summary ---
Author Organization [facility] Address [address] [facility] [address] [place] [address] Phone Care Team Providers Care Spectrographic Analyst Name Role Phone Christine Cruz MD Primary Care Provider Michelle Marshall MD Primary Care Provider [phone] Michelle Marshall MD Primary Care Provider Encounter Details Date Type Department Care Team (Late st Contact Info) Description 05/05/2019 Ancillary Orders Virtual Department [address] [place] [address] Gloria Mary PA [address] Melvin Grayson [address] [address] Breast screening Social History Tobacco Use Types [...] st Contact Info) Description 09/11/2025 Procedure Pass [facility], [address] [address] 09/11/2025 Procedure Pass [address] [address] 10/08/2025 2:45 PM EST Appointment [address] [address] Michelle Marshall MD [address] [place] [address] 10/08/2025 3:15 PM EST Appointment [address] [address] Michelle Marshall MD [address] [place] [address] 11/07/2025 11:00 AM EST Office Visit [facility] [address] [place] [address] 3rd Floor, [address] [place] [address] Saundra Rashid PA-C [address] [place] [address] 01/04/2026 10:40 AM EDT Office Visit [facility] [address] [place] [address] Raina Bernard MD, MPH 22 [facility], [address] [place] [address] 02/27/2026 9:30 AM EDT Office Visit [facility]astroenter[facility] 10 [place] [address] Connie Crbatree PA-C [address] [place] [address] documented as of this encounter Results * [...] obscure a lesion on mammography. POS - [id number] Narrative 05/22/2019 1:23 PM EDT Full-field digital [...] couldobscure a lesion on mammography. POS - [id number] us Gloria LEVY IMG MG EXAMS Final Result documented in this encounter Visit Diagnoses Diagnosis Breast screening Breast screening, unspecified Breast screening Breast screening, unspecified documented in this encounter Care Teams Spectrographic Analyst Relationship Specialty Start Date End Date Christine Cruz MD 4 [place] [address] PCP - General 07/13/17 08/09/22 Michelle Marshall MD 4 [place] [address] PCP - General Family Medicine 08/10/22 08/17/23 Michelle Marshall MD [address] [place] [address] PCP - General Family Medicine 08/18/23 documented as of this encounter Additional Source Comments The information contained in this document represents components of the legal health record. It is not the complete legal health record.[facility]
--- OUTSIDE RECORDS SUMMARY | 2025-09-14 13:40 | XMS_ITS | Encounter Summary ---
Author Organization [facility] Address [address] [place] [address] Phone Care Team Providers Care Reinsurance Clerk Name Role Phone Michelle Marshall MD Primary Care Provider [phone] Michelle Marshall MD Primary Care Provider Encounter Details Date Type Department Care Team (Late st Contact Info) Description 05/28/2023 Transcribe Orders Virtual Department 30 [place] [address] Michelle Marshall MD [address] [place], [place] [phone] [email or web address] Breast screening (Primary Dx) Social History Tobacco [...] (Late st Contact Info) Description 09/11/[address] [address] 09/11/2025 Procedure Pass [address] [address] 10/08/2025 2:45 PM EST Appointment [address] [address] Michelle Marshall MD [address] [place] [address] 10/08/2025 3:15 PM EST Appointment [address] [address] Michelle Marshall MD [address] [place] [address] 11/07/2025 11:00 AM EST Office Visit [facility] 22 [facility] 3rd Floor, [address] [place] [address] Saundra Rashid PA-C [address] [place] [address] 01/04/2026 10:40 AM EDT Office Visit [facility]ology [facility] [address] [place] [address] Raina Bernard MD, MPH 22 [facility], [address] [place] [address] 02/27/2026 9:30 AM EDT Office Visit [facility] 10 [place] [address] Connie Crabtree PA-C [address] [address] [email or web address] documented as of this encounter Results * [...] unspecified documented in this encounter Care Teams Reinsurance Clerk Relationship Specialty Start Date End Date Michelle Marshall MD PCP - General Family Medicine 08/10/22 08/17/23 Michelle Marshall MD [address] [place] [address] [email or web address] PCP - General Family Medicine 08/18/23 documented as of this encounter Additional Source Comments The information contained in this document represents components of the legal health record. It is not the complete legal health record.[facility]
== END 2025-09-14 11:28 | disposition home or self-care (01) ==
LOC: HO.CT 11:27
PROVIDERS: PCP Family Medicine; Visit Provider Neurological Surgery
DX: M40.14 Other secondary kyphosis, thoracic region (principal)
CPT/HCPCS: 72128

== ENCOUNTER → 2025-09-14 11:36 | Outpatient (BNV) | payer OTHER, SELFPAY | PROVIDERS: PCP Family Medicine; Visit Provider Radiology Diagnostic Radiology | DX: M40.14 Other secondary kyphosis, thoracic region (principal); M51.84 Other intervertebral disc disorders, thoracic region | CPT/HCPCS: 72128 ==